=== PATIENT | male | born 1955 | race Caucasian/White ===

== ENCOUNTER → 2017-12-13 | Outpatient (CLI) | payer OTHER ==
[~2017-12-13] MED LIST: ACET120S PO; ACET325 PO; ALBU90OI6 INH; AMOCLA875 PO; ASPI81CH; ASPI81EC PO; AZIT250 PO; AZIT500 PO; Ativan1 MG PO; CEFD300 PO; CEFP200 PO; CEPH500 PO; CIPR500 PO; CRANBERRY PLUS1 EAC1 PO; Cipro500 MG PO; DOCU100 PO; DOXYCYCLINE CALCIUM; DULOXETINE; FLUC150A PO; FURO40 PO; HYDR1TAB94 PO; K-Dur20 MEQ; K-TAB ER20 MEQ PO; KETO15TC TP; LAVAP17G PO; LORA1; LORA1 PO; LOVA20 PO; LOVA40 PO; NITR100 PO; NYST100P TOP; POLY17UD PO; POTA10T PO; POTA8; POTCHL10ER PO; PREG50 PO; QUET100 PO; QUET25 PO; QUETIAPINE 25 MG; Rocephin 10001000 MG IM; SENNA PLUS; SERT100 PO; SERT25 PO; SERT50 PO; Seroquel50 MG PO; Tazicef1 G1 IM; WARF3 PO; WARF4 PO; [UNRECOGNIZED DRUG - OTHER]
[2017-12-13 18:15] LABS: Source, Urine Catheter
[2017-12-13 18:27] LABS: Appearance, Urine Cloudy (Clear); Bilirubin, Urine Neg (Neg); Blood, Urine 5+ (Neg); Color, Urine Yellow (P-Yellow); Glucose Qualitative, Urine Neg (Neg); Ketones, Urine Neg (Neg); Leukocyte Esterase, Urine 3+ (Neg); Nitrite, Urine Neg (Neg); Protein, Urine 2+ (Neg); Urobilinogen, Urine 3+ (Normal); pH, Urine 6.5 (5.0-8.0)
[2017-12-13 19:04] LABS: Bacteria Many /hpf; Red Blood Cells, Urine 25-50 /hpf (0-2); Squamous Epithelial Cells Not Seen /hpf (Few); White Blood Cells, Urine TNTC /hpf (0-5)
== END | disposition home or self-care (01) ==
LOC: LAB HH 17:30
PROVIDERS: Family Medicine
DX: N39.0 Urinary tract infection, site not specified (principal)
CPT/HCPCS: 81001; 87077; 87086; 87186

== ENCOUNTER → 2018-02-21 | Outpatient (CLI) | END | disposition home or self-care (01) ==

== ENCOUNTER → 2018-04-10 | Outpatient (CLI) | payer OTHER ==
[2018-04-10 14:27] LABS: Creatinine, Blood 1.29 mg/dL (0.60-1.20); Glomerular Filtration Rate >60 (60-)
== END | disposition home or self-care (01) ==
LOC: LAB HH 13:00
PROVIDERS: Urology
DX: N13.1 Hydronephrosis with ureteral stricture, not elsewhere classified (principal)
CPT/HCPCS: 82565

== ENCOUNTER → 2018-10-16 | Outpatient (CLI) | payer OTHER ==
[2018-10-16 17:36] LABS: Appearance, Urine Turbid (Clear); Bilirubin, Urine Neg (Neg); Blood, Urine 5+ (Neg); Color, Urine Amber (P-Yellow); Glucose Qualitative, Urine Neg (Neg); Ketones, Urine Neg (Neg); Leukocyte Esterase, Urine 3+ (Neg); Nitrite, Urine Neg (Neg); Protein, Urine 3+ (Neg); Urobilinogen, Urine 2+ (Normal); pH, Urine 6.5 (5.0-8.0)
[2018-10-16 17:46] LABS: Bacteria Many /hpf; Red Blood Cells, Urine TNTC /hpf (0-2); Squamous Epithelial Cells Rare /hpf (Few); White Blood Cells, Urine TNTC /hpf (0-5)
== END | disposition home or self-care (01) ==
LOC: LAB HH 17:11
PROVIDERS: Family Medicine
DX: N31.9 Neuromuscular dysfunction of bladder, unspecified (principal)
CPT/HCPCS: 81001; 87077; 87086; 87186

== ENCOUNTER → 2019-01-15 | Outpatient (CLI) | payer OTHER | END | disposition home or self-care (01) | LOC: LAB SHORT 09:42 → LAB HH 09:50 | DX: L08.9 Local infection of the skin and subcutaneous tissue, unspecified (principal) | CPT/HCPCS: 87070; 87205 ==

== ENCOUNTER → 2019-01-16 | Outpatient (CLI) | payer OTHER ==
[2019-01-16 16:26] LABS: Source, Urine Catheter
[2019-01-16 16:33] LABS: Appearance, Urine Cloudy (Clear); Bilirubin, Urine Neg (Neg); Blood, Urine 4+ (Neg); Color, Urine Yellow (P-Yellow); Glucose Qualitative, Urine Neg (Neg); Ketones, Urine Neg (Neg); Leukocyte Esterase, Urine 3+ (Neg); Nitrite, Urine Pos (Neg); Protein, Urine 2+ (Neg); Urobilinogen, Urine NORM (Normal)
[2019-01-16 16:52] LABS: White Blood Cells, Urine TNTC /hpf (0-5)
[2019-01-16 16:54] LABS: Bacteria Mod /hpf; Squamous Epithelial Cells Rare /hpf (Few)
== END | disposition home or self-care (01) ==
LOC: LAB HH 16:24 → LAB 16:24 → LAB SHORT 16:24
PROVIDERS: Family Medicine
DX: N39.0 Urinary tract infection, site not specified (principal)
CPT/HCPCS: 81001

== ENCOUNTER → 2019-02-05 | Outpatient (CLI) | payer OTHER ==
[2019-02-06 11:54] LABS: Appearance, Urine Turbid (Clear); Bilirubin, Urine Neg (Neg); Blood, Urine 5+ (Neg); Color, Urine Yellow (P-Yellow); Glucose Qualitative, Urine Neg (Neg); Ketones, Urine Neg (Neg); Leukocyte Esterase, Urine 3+ (Neg); Nitrite, Urine Neg (Neg); Protein, Urine 3+ (Neg); Urobilinogen, Urine NORM (Normal); pH, Urine 6.5 (5.0-8.0)
[2019-02-06 11:55] LABS: Amorphous Light (0-Heavy); Bacteria Many /hpf; Squamous Epithelial Cells Not Seen /hpf (Few); White Blood Cells, Urine TNTC /hpf (0-5)
== END | disposition home or self-care (01) ==
LOC: LAB HH 18:00 → LAB SHORT 18:00
PROVIDERS: Family Medicine
DX: N31.9 Neuromuscular dysfunction of bladder, unspecified (principal)
CPT/HCPCS: 81001; 87077; 87086; 87186

== ENCOUNTER 2019-02-24 13:09 | Inpatient (IN) | payer OTHER ==
[~2019-02-24] VITALS: Ht 182.9 cm; Wt 113.4 kg
[2019-02-24 15:29] LABS: BASOPHILS ABSOLUTE AUTO 0.02 K/mm3 (0.00-0.23); BASOPHILS PERCENT AUTO 0 % (0-2); EOSINOPHILS ABSOLUTE AUTO 0.06 K/mm3 (0.00-0.68); EOSINOPHILS PERCENT AUTO 0 % (0-6); Hematocrit 44.2 % (37.0-53.0); Hemoglobin 13.6 g/dL (13.5-17.5); IMMATURE GRAN ABSOLUTE AUTO 0.11 K/mm3 (0.00-0.10); IMMATURE GRAN PERCENT AUTO 1 % (0-1); LYMPHOCYTES ABSOLUTE AUTO 0.96 K/mm3 (0.84-5.20); LYMPHOCYTES PERCENT AUTO 6 % (21-46); MONOCYTES ABSOLUTE AUTO 1.48 K/mm3 (0.16-1.47); MONOCYTES PERCENT AUTO 10 % (4-13); Mean Corpuscular HGB 27.5 pg (26.0-34.0); Mean Corpuscular HGB Conc 30.8 g/dL (31.5-36.5); Mean Corpuscular Volume 90 fL (80-100); Mean Platelet Volume 10.9 fL (9.1-12.4); NEUTROPHILS ABSOLUTE AUTO 13.03 K/mm3 (1.96-9.15); NEUTROPHILS PERCENT AUTO 83 % (41-73); Platelet Count 212 K/mm3 (150-400); RDW Coefficient Variation 16.6 % (11.7-14.2); RDW Standard Deviation 54.4 fL (35.1-46.3); Red Blood Cell Count 4.94 M/mm3 (4.30-5.90); White Blood Cell Count 15.66 K/mm3 (4.00-11.30)
[2019-02-24 15:39] LABS: Alanine Aminotransfer (ALT/SGP 40 U/L (12-78); Albumin, Blood 2.8 g/dL (3.4-5.0); Albumin/Globulin Ratio 0.5 (0.8-1.8); Alk Phos 159 U/L (50-136); Anion Gap 7 mmol/L (6-16); Aspartate Aminotrans (AST/SGOT 26 U/L (12-37); Bilirubin, Total 0.8 mg/dL (0.1-1.0); Blood Urea Nitrogen 19 mg/dL (8-24); Bun/Creatinine Ratio 15.3 (12.0-20.0); CO2, Blood 25 mmol/L (21-32); Calcium, Blood 8.4 mg/dL (8.5-10.1); Chloride, Blood 106 mmol/L (98-108); Creatinine, Blood 1.24 mg/dL (0.60-1.20); Globulin, Blood 5.5 g/dL (2.2-4.0); Glomerular Filtration Rate >60 (60-); Glucose, Blood 102 mg/dL (70-99); Potassium, Blood 3.9 mmol/L (3.5-5.5); Sodium, Blood 138 mmol/L (136-145); Total Protein, Blood 8.3 g/dL (6.4-8.2)
[2019-02-24] MEDS ORDERED: EPIPEN 2-P0.3 MG/0.3 IM (16:19)
[2019-02-24 16:22] LABS: Source, Urine Catheter
[2019-02-24 16:27] LABS: Bilirubin, Urine Neg (Neg); Blood, Urine 5+ (Neg); Glucose Qualitative, Urine Neg (Neg); Ketones, Urine Neg (Neg); Leukocyte Esterase, Urine 3+ (Neg); Nitrite, Urine Pos (Neg); Protein, Urine 3+ (Neg); Urobilinogen, Urine NORM (Normal); pH, Urine 6.5 (5.0-8.0)
[2019-02-24 16:34] LABS: Appearance, Urine Bloody (Clear); Color, Urine Red (P-Yellow)
[2019-02-24 16:35] LABS: Bacteria Many /hpf; Red Blood Cells, Urine TNTC /hpf (0-2); Squamous Epithelial Cells Not Seen /hpf (Few); White Blood Cells, Urine TNTC /hpf (0-5)
[2019-02-24] MEDS ORDERED: QUET25 PO (18:08)
[2019-02-24] MEDS ORDERED: LORA.5 PO (18:11)
[2019-02-24] MEDS ORDERED: ALBU2.5V5 NEB (18:12)
[2019-02-24] MEDS ORDERED: Nystatin15 GM TOP (18:13)
[2019-02-24] MEDS ORDERED: Milk Of Ma400 MG/5 M PO (18:13)
[2019-02-24] MEDS ORDERED: Anti-Diarrheal2 MG PO (18:15)
[2019-02-24] MEDS ORDERED: Cvs Heartburn1 EACH PO (18:15)
[2019-02-24] MEDS ORDERED: Triple Antibio1 EACH TOP (18:18)
[2019-02-25 04:50] LABS: Hematocrit 35.6 % (37.0-53.0); Mean Corpuscular HGB 27.2 pg (26.0-34.0); Mean Corpuscular HGB Conc 30.9 g/dL (31.5-36.5); Mean Corpuscular Volume 88 fL (80-100); Mean Platelet Volume 10.5 fL (9.1-12.4); Platelet Count 163 K/mm3 (150-400); RDW Coefficient Variation 16.5 % (11.7-14.2); RDW Standard Deviation 53.1 fL (35.1-46.3); Red Blood Cell Count 4.05 M/mm3 (4.30-5.90); White Blood Cell Count 9.21 K/mm3 (4.00-11.30)
[2019-02-25 05:06] LABS: Anion Gap 4 mmol/L (6-16); Blood Urea Nitrogen 18 mg/dL (8-24); Bun/Creatinine Ratio 15.7 (12.0-20.0); CO2, Blood 26 mmol/L (21-32); Calcium, Blood 7.8 mg/dL (8.5-10.1); Chloride, Blood 107 mmol/L (98-108); Creatinine, Blood 1.15 mg/dL (0.60-1.20); Glomerular Filtration Rate >60 (60-); Glucose, Blood 96 mg/dL (70-99); Potassium, Blood 3.9 mmol/L (3.5-5.5); Sodium, Blood 137 mmol/L (136-145)
--- NOTE | 2019-02-25 05:54 | NUR ---
SHIFT SUMMARY: PT ARRIVED AT END OF DAY SHIFT. HE WAS ALERT AND ORIENTED WITH FREQUENT SHORT PERIODS OF CONFUSION T/O THE NOC SHIFT. HX OF COPD, AND CHRONIC UTI'S. COMES IN FROM [facility] ASS[facility]. MOTHER AND BROTHER WERE IN FOR SHORT PERIOD OF TIME DURING THE BEGINING OF SHIFT AND PLAN TO ARRIVE IN THE [facility]. PT WAS HUNGRY AT BEGINNING OF SHIFT AND ATE SOME SNACKS PRIOR TO MEDICATIONS. DENIED ANY NAUSEA. ADMISSION ASSESSMENT WAS COMPLETED. LUNGS SOUNDS CLEAR T/O, WITH OCCATIONAL DRY COUGH. DENIED SOB. NO CARDIAC ISSUES TO NOTE. VS WNL T/O SHIFT AND NO PAIN. IV FLUIDS WERE STARTED AND INFUSED WELL T/O THE NIGHT INTO A 22G RIGHT HAND. WOUNDS ARE NOTED AND DOCUMENTED TO THE GREAT RIGHT TOE, FROM RUNNING INTO SOMETHING. WOUNDS IS SMALL MEASURES 0.25 X0.25, WOUND HAS HYPERGRANULATION TISSUE, EDGES PINK WITH BRUISING NOTED AROUND AND ON THE SECOND TOE. WOUNDS ALSO ON COCCYX SHALLOW PINK MEASURES AN ESTIMATE OF 1 X 0.5 X 0.1 SURROUNDING TISSUE IS RED BUT BLANCHABLE. DRESSING WAS APPLIED ON TOE ONLY COCCYX WOUND IS MORE ON THE RIGHT NEAR ANAL OPENING. SO BARRIER CREAM IS SUGGESTED. CATHETER PATIETN WITH CLOUDY MUCUS LIKE URINE, SEDIMENT. ENCOURAGED HIM TO DRINK FLUIDS, HE HAS A HISTORY OF POOR INTAKE. AFTER BEDTIME MEDS HE SLEPT WELL THROUGHOUT THE NIGHT, AND DID NOT WANT TO BE DISTURBED UNTIL THIS AM. WILL REPORT TO DAY SHIFT RN.
--- NOTE | 2019-02-25 17:35 | NUR ---
SUMMARY PT SITTING UP IN BED EATING DINNER, PT HAS HAD SEVERAL VISITORS IN TODAY, PT OCC REFUSED TO BE TURNED, SMITH DRAINING HAZY, CLOUDY URINE, PT ASKED SEVERAL TIMES WHEN HE COULD GO HOME, PT VERY FORGETFUL, TAKES PILLS WHOLE WITH WATER, OCC WITH TURNING HIS LEGS SHAKE AND TREMOR, PT REPORTS HE CANNOT CONTROL IT, PT DENIES ANY PAIN OR SOB, VSS, NO ACUTE CHANGES, WILL CONT TO MONITOR
[2019-02-25] MEDS ORDERED: ACET325 PO (22:17)
[2019-02-25] MEDS ORDERED: ALBU90OI61 INH (22:19)
[2019-02-25] MEDS ORDERED: ANTACID PO (22:21)
[2019-02-25] MEDS ORDERED: SIM PO (22:21)
[2019-02-25] MEDS ORDERED: BISA10S PR (22:22)
[2019-02-25] MEDS ORDERED: [UNRECOGNIZED DRUG - OTHER] PR (22:23)
[2019-02-25] MEDS ORDERED: BENZEDREX (22:25)
[2019-02-25] MEDS ORDERED: GAVILAX17 G1 PO (22:27)
[2019-02-25] MEDS ORDERED: ONDA4ODT MM (22:30)
[2019-02-26 04:57] LABS: BASOPHILS ABSOLUTE AUTO 0.01 K/mm3 (0.00-0.23); BASOPHILS PERCENT AUTO 0 % (0-2); EOSINOPHILS PERCENT AUTO 2 % (0-6); Hematocrit 35.6 % (37.0-53.0); Hemoglobin 10.7 g/dL (13.5-17.5); IMMATURE GRAN ABSOLUTE AUTO 0.02 K/mm3 (0.00-0.10); IMMATURE GRAN PERCENT AUTO 0 % (0-1); LYMPHOCYTES ABSOLUTE AUTO 0.88 K/mm3 (0.84-5.20); LYMPHOCYTES PERCENT AUTO 17 % (21-46); MONOCYTES ABSOLUTE AUTO 0.67 K/mm3 (0.16-1.47); MONOCYTES PERCENT AUTO 13 % (4-13); Mean Corpuscular HGB 26.6 pg (26.0-34.0); Mean Corpuscular HGB Conc 30.1 g/dL (31.5-36.5); Mean Corpuscular Volume 89 fL (80-100); Mean Platelet Volume 10.2 fL (9.1-12.4); NEUTROPHILS ABSOLUTE AUTO 3.54 K/mm3 (1.96-9.15); NEUTROPHILS PERCENT AUTO 68 % (41-73); Platelet Count 158 K/mm3 (150-400); RDW Coefficient Variation 16.4 % (11.7-14.2); RDW Standard Deviation 53.8 fL (35.1-46.3); Red Blood Cell Count 4.02 M/mm3 (4.30-5.90); White Blood Cell Count 5.22 K/mm3 (4.00-11.30)
[2019-02-26 05:23] LABS: Anion Gap 5 mmol/L (6-16); Blood Urea Nitrogen 17 mg/dL (8-24); Bun/Creatinine Ratio 14.7 (12.0-20.0); CO2, Blood 25 mmol/L (21-32); Calcium, Blood 8.5 mg/dL (8.5-10.1); Chloride, Blood 111 mmol/L (98-108); Creatinine, Blood 1.16 mg/dL (0.60-1.20); Glomerular Filtration Rate >60 (60-); Glucose, Blood 99 mg/dL (70-99); Potassium, Blood 4.1 mmol/L (3.5-5.5); Sodium, Blood 141 mmol/L (136-145)
--- NOTE | 2019-02-26 05:32 | NUR ---
SHIFT SUMMARY: RADHA WAS CONFUSED THROUGHOUT THE NIGHT, HAD TO CONTINUE TO ORIENT HIM TO PLACE AND SITUATION. HE GOT AGGITATED SEVERAL TIMES SCREAMING DOWN THE V[place]LEGAS AND AT PEOPLE IN THE OTHER ROOMS. ONCE REORIENTED HE DID BETTER BUT NEEDED IT WITH IN MINUTES. HE WAS COMPLAINING THAT HE WANTED TO SLEEP. HAD TO GIVE HIM ATIVAN TO HELP HIM CALM DOWN AFTER HE GOT AGGITATED. ONCE HE CALMED DOWN WATCHED SOME TV BUT AROUND THE MIDNIGHT TIME HUNG HIS ANTIBOTIC AND WITH IN 20 MINUTES HE STARTED TO YELL AGAIN AND COMPLAINING TO TURN IT OFF, CUSING AND YELLING, REFUSED TO TAKE ORAL BACTRIM, REFUSED TO HAVE HIS VITALS TAKEN WELL. WAS ABLE TO TALK HIM INTO THE ANTIBOTIC BUT THAT WAS IT. HE FELL BACK TO SLEEP AND CONTINUED T/O THE NIGHT. HE ALLOWED THE LAB AND TRAVELING INVENTORY ASSOCIATE TO TAKE VITALS THIS MORNING BUT THAT WAS ALL. HE IS RESTING RIGHT NOW AGAIN REFUSED TO HAVE REPOSITIONING, LIKES TO BE LEFT ALONE AT NIGHT. WILL ASK DAY SHIFT RN TO SEE ABOUT HIS NIGHT MEDS WHEN THEY COME ON SHIFT.
--- NOTE | 2019-02-26 18:26 | NUR ---
SUMMARY PT RESTING QUIETLY IN BED, WAKES EASILY, IS VERY IRRITABLE WHEN WOKEN UP, IS PLEASANT WHEN FULLY AWAKE, HAD FAMILY IN TO VISIT TODAY, DISCHARGE PLANNERS HAVE BEEN IN CONTACT WITH [facility] AND PLAN IS TO DC IN AM, WILL CONT TO MONITOR
--- NOTE | 2019-02-26 19:20 | NUR ---
SHIFT ASSESSEMENT: RADHA ASLEEP IN ROOM, DINNER TRAY STILL SITTING ON BEDSIDE TABLE HAS NOT BEEN TOUCH. IV INFUSING WELL INTO RIGHT HAND AT KVO. AWAKENED HIM BY CALLING HIS NAME. HE AWAKENED EASILY, ABLE TO ORIENT TO PLACE AND SELF. HE REALIZED HE SLEPT ALL DAY. HE WAS SEEMING BACK TO HIS NORM JOKING AND WILLING TO LAUGH. HE ASKED ABOUT LAST NIGHT AND HOW HE WAS A AGITATED WHEN WOKE UP. INFORMED HE THAT HE WAS BUT IT WAS OK. HE APPOLIGIZED FOR HIS BEHAVIOR. INFORMED HIM I WOULD HAVE TO WAKE HIM UP TONIGHT WELL AND HE SAID HE WOULD BE BETTER TONIGHT. HE ATE ALL OF HIS MEAL, AND TOOK HIS MEDS WELL. DRESSING TO HIS TOE WAS INTAKE BUT REMOVED TO ASSESS WOUND, NO CHANGES, CLEANSED AND PUT NEW DRESSING ON. ASSESSMENT BENIGN, URINE IS BECOMING CLEARER, AND YELLOW. BOTTOM WOUND NO CHANGE INFORMED HIM HE HAS TO CHANGED POSITION MORE OFTEN. WILL CONTINUE TO ENCOURAGE HIM. EDUCATED ON THE ANITOBICS AND MEDS THAT HE WILL BE GETTING TONIGHT AND HOW IMPROTANT THEY ARE FOR HIS MRSA INFECTION. HE VERBALIZED UNDERSTANDING.
[2019-02-27 05:05] LABS: BASOPHILS ABSOLUTE AUTO 0.01 K/mm3 (0.00-0.23); BASOPHILS PERCENT AUTO 0 % (0-2); EOSINOPHILS ABSOLUTE AUTO 0.18 K/mm3 (0.00-0.68); EOSINOPHILS PERCENT AUTO 3 % (0-6); Hematocrit 36.6 % (37.0-53.0); Hemoglobin 11.1 g/dL (13.5-17.5); IMMATURE GRAN ABSOLUTE AUTO 0.03 K/mm3 (0.00-0.10); IMMATURE GRAN PERCENT AUTO 1 % (0-1); LYMPHOCYTES ABSOLUTE AUTO 0.85 K/mm3 (0.84-5.20); LYMPHOCYTES PERCENT AUTO 15 % (21-46); MONOCYTES PERCENT AUTO 11 % (4-13); Mean Corpuscular HGB 26.9 pg (26.0-34.0); Mean Corpuscular HGB Conc 30.3 g/dL (31.5-36.5); Mean Corpuscular Volume 89 fL (80-100); Mean Platelet Volume 10.3 fL (9.1-12.4); NEUTROPHILS ABSOLUTE AUTO 3.98 K/mm3 (1.96-9.15); NEUTROPHILS PERCENT AUTO 71 % (41-73); Platelet Count 173 K/mm3 (150-400); RDW Coefficient Variation 16.1 % (11.7-14.2); Red Blood Cell Count 4.12 M/mm3 (4.30-5.90); White Blood Cell Count 5.65 K/mm3 (4.00-11.30)
[2019-02-27 05:30] LABS: Anion Gap 5 mmol/L (6-16); Blood Urea Nitrogen 16 mg/dL (8-24); Bun/Creatinine Ratio 13.8 (12.0-20.0); CO2, Blood 27 mmol/L (21-32); Calcium, Blood 8.3 mg/dL (8.5-10.1); Chloride, Blood 108 mmol/L (98-108); Creatinine, Blood 1.16 mg/dL (0.60-1.20); Glomerular Filtration Rate >60 (60-); Glucose, Blood 81 mg/dL (70-99); Potassium, Blood 4.2 mmol/L (3.5-5.5); Sodium, Blood 140 mmol/L (136-145)
--- NOTE | 2019-02-27 06:19 | NUR ---
SHIFT SUMMARY: RADHA DID WELL THROUGHOUT THE NIGHT. HE WAS MORE ALERT AND ORIENTED THEN PRIOR EVENING. HE REMAINED CALM AND COOPERTIVE EVEN WHEN WOKE UP IN THE MIDDLE OF THE NIGHT. TOOK HIS MEDS WITH NO PROBLEMS, DENIED ANY PAIN OR DISCOMFORT. SLEPT WELL THROUGHOUT THE NIGHT WITH NO ACUTE CHANGESE TO REPORT. WILL INFORM DAY SHIFT RN.
[2019-02-27] MEDS ORDERED: CVS DISPOSABLE399 ML PR (08:44)
[2019-02-27] MEDS ORDERED: Florastor250 MG PO (08:46)
[2019-02-27] MEDS ORDERED: Oyster Shell C500 MG PO (08:46)
[2019-02-27] MEDS ORDERED: Bactrim Ds Tab1 EACH PO (08:47)
[2019-02-27] MEDS ORDERED: AMOCLA500 PO (08:48)
--- NOTE | 2019-02-27 10:42 | NUR ---
patient discharged with [facility] facility member. Placed in electric w/c via lift. dressed in street clothes. IV removed. patient grateful for care.
== END 2019-02-27 10:40 | disposition home or self-care (01) | DRG 699 ==
LOC: ER 13:09 → MEDS 13:10 → ENPENDDIS 03-02 07:54
PROVIDERS: Emergency Medicine; Family Medicine; ADMIT Internal Medicine
DX: T83.511A Infection and inflammatory reaction due to indwelling urethral catheter, initial encounter (principal); G82.20 Paraplegia, unspecified; N31.9 Neuromuscular dysfunction of bladder, unspecified; E87.5 Hyperkalemia; Z96.0 Presence of urogenital implants; W11.XXXS Fall on and from ladder, sequela; J44.9 Chronic obstructive pulmonary disease, unspecified; Z87.891 Personal history of nicotine dependence; B95.62 Methicillin resistant Staphylococcus aureus infection as the cause of diseases classified elsewhere; E83.51 Hypocalcemia; D69.6 Thrombocytopenia, unspecified; E66.01 Morbid (severe) obesity due to excess calories; Z68.33 Body mass index [BMI] 33.0-33.9, adult
CPT/HCPCS: 36415; 51702; 80048; 80053; 81001; 85025; 85027; 87081; 87086; 93005; 93010; 96361; 96361-59; 96365-59; 96366; 96367; 96372; 96372-59; 96376; 99285-25; G0378; J0696; J1644; J3370; J7030; J7050; J7120

== ENCOUNTER 2019-03-13 10:20 | Observation (INO) | payer OTHER ==
[~2019-03-13] VITALS: Ht 182.9 cm; Wt 105.0 kg
[~2019-03-13 10:20] MED LIST changes: +ALBU2.5V5 NEB; +ALBU90OI61 INH; +AMOCLA500 PO; +ANTACID PO; +Anti-Diarrheal2 MG PO; +BENZEDREX; +BISA10S PR; +Bactrim Ds Tab1 EACH PO; +CVS DISPOSABLE399 ML PR; +Cvs Heartburn1 EACH PO; +EPIPEN 2-P0.3 MG/0.3 IM; +Florastor250 MG PO; +GAVILAX17 G1 PO; +LORA.5 PO; +Milk Of Ma400 MG/5 M PO; +Nystatin15 GM TOP; +ONDA4ODT MM; +Oyster Shell C500 MG PO; +SIM PO; +Triple Antibio1 EACH TOP; +[UNRECOGNIZED DRUG - OTHER] PR
[2019-03-13 10:42] LABS: BASOPHILS ABSOLUTE AUTO 0.03 K/mm3 (0.00-0.23); BASOPHILS PERCENT AUTO 0 % (0-2); EOSINOPHILS ABSOLUTE AUTO 0.21 K/mm3 (0.00-0.68); EOSINOPHILS PERCENT AUTO 2 % (0-6); Hematocrit 41.1 % (37.0-53.0); Hemoglobin 12.3 g/dL (13.5-17.5); IMMATURE GRAN ABSOLUTE AUTO 0.04 K/mm3 (0.00-0.10); IMMATURE GRAN PERCENT AUTO 0 % (0-1); LYMPHOCYTES PERCENT AUTO 16 % (21-46); MONOCYTES ABSOLUTE AUTO 0.95 K/mm3 (0.16-1.47); MONOCYTES PERCENT AUTO 10 % (4-13); Mean Corpuscular HGB 26.3 pg (26.0-34.0); Mean Corpuscular HGB Conc 29.9 g/dL (31.5-36.5); Mean Corpuscular Volume 88 fL (80-100); Mean Platelet Volume 9.9 fL (9.1-12.4); NEUTROPHILS ABSOLUTE AUTO 6.46 K/mm3 (1.96-9.15); NEUTROPHILS PERCENT AUTO 70 % (41-73); Platelet Count 230 K/mm3 (150-400); RDW Coefficient Variation 16.6 % (11.7-14.2); RDW Standard Deviation 52.9 fL (35.1-46.3); Red Blood Cell Count 4.68 M/mm3 (4.30-5.90); White Blood Cell Count 9.19 K/mm3 (4.00-11.30)
[2019-03-13 10:57] LABS: Alanine Aminotransfer (ALT/SGP 28 U/L (12-78); Albumin, Blood 2.8 g/dL (3.4-5.0); Albumin/Globulin Ratio 0.5 (0.8-1.8); Alk Phos 135 U/L (50-136); Anion Gap 4 mmol/L (6-16); Aspartate Aminotrans (AST/SGOT 18 U/L (12-37); Bilirubin, Total 0.5 mg/dL (0.1-1.0); Blood Urea Nitrogen 15 mg/dL (8-24); Bun/Creatinine Ratio 13.8 (12.0-20.0); CO2, Blood 29 mmol/L (21-32); Calcium, Blood 8.5 mg/dL (8.5-10.1); Chloride, Blood 108 mmol/L (98-108); Creatinine, Blood 1.09 mg/dL (0.60-1.20); Globulin, Blood 5.4 g/dL (2.2-4.0); Glomerular Filtration Rate >60 (60-); Glucose, Blood 83 mg/dL (70-99); Potassium, Blood 4.5 mmol/L (3.5-5.5); Sodium, Blood 141 mmol/L (136-145); Total Protein, Blood 8.2 g/dL (6.4-8.2); Troponin I <0.015 ng/mL (0.000-0.040)
--- NOTE | 2019-03-13 18:07 | NUR ---
PT HAS BEEN SETTLED INTO ROOM. AOX4 AND COOPERATIVE OF ALL CARE. PT IS A PARAPLEGIC AND IS RESTING IN BED. PT HAS CHRONIC SMITH AND THIS WAS REMOVED AND NEW SMITH PLACED TO COLLECT UA PER PROTOCOL. PT TOLERATED WELL. PT IS CALM NO DISTRESS NOTED. LUNG SOUNDS ARE WET AND COURSE AT THIS TIME WILL CONTINUE TO MONITOR.
[2019-03-13 19:07] LABS: Source, Urine Catheter
[2019-03-13 19:18] LABS: Appearance, Urine Hazy (Clear); Bilirubin, Urine Neg (Neg); Blood, Urine 4+ (Neg); Color, Urine Yellow (P-Yellow); Glucose Qualitative, Urine Neg (Neg); Ketones, Urine Neg (Neg); Leukocyte Esterase, Urine 3+ (Neg); Nitrite, Urine Neg (Neg); Protein, Urine 1+ (Neg); Urobilinogen, Urine NORM (Normal)
[2019-03-13 19:33] LABS: White Blood Cells, Urine TNTC /hpf (0-5)
[2019-03-13 19:34] LABS: Bacteria Many /hpf; Squamous Epithelial Cells Rare /hpf (Few)
--- NOTE | 2019-03-14 04:27 | NUR ---
SHIFT SUMMARY: PT RESTED COMFORTABLY ALL SHIFT. PT HAD BRIEF PERIODS OF CONFUSION LATE MORNING WHERE PATIENT HAD NO IDEA WHERE HE WAS OR WHAT DAY IT WAS. PT APPEARS TO HAVE SUNDOWNERS AT TIMES AND REQUIRED FREQUENT REDIRECTION AND REASSURNACE (YELLING OUT NON SENSICAL WORDS). PTS LUNG SOUNDS ARE COARSE THROUGHOUT WITH OCCASIONAL NON PRODUCTIVE COUGH NOTED. PT DID PULL OUT SL TO LEFT ANTECUBITAL THIS SHIFT WITH NEW SL RESTARTED LEFT HAND AND COVERED WITH COBAN DRESSING. PT DENIES PAIN OR NAUSEA. PTS BED ALARM APPLIED, BED LOW POSITION, CALL LIGHT AT SIDE.
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
[2019-03-14] MEDS ORDERED: ALBU3IS INH (11:55)
[2019-03-14] MEDS ORDERED: AIRDUO RESPICL1 EAC1 INH (11:57)
[2019-03-14] MEDS ORDERED: AZIT500 PO (11:58)
[2019-03-14] MEDS ORDERED: DELTASONE20 MG PO (12:00)
--- NOTE | 2019-03-14 15:00 | NUR ---
PT DISCHARGED HOME TO [facility]. ALL PACKET INFO REVIEWED WITH [facility] NURSE AND MEDICATION LIST FAXED TO THEM. MEDICATIONS FAXED TO [facility] IN [place]. NEBULIZER MACHINE ORDER FAXED TO [facility]. PT MOTHER NOTIFIED OF PT LEAVING TO RETURN HOME TO [facility]. PAPER CUTTER FROM [facility] ARRIVED AND PICKED UP PT VIA WHEELCHAIR AT 1500. PT'S BELONGINGS WERE TAKEN WITH HIM. NO DISTRESS NOTED.
== END 2019-03-14 15:00 | disposition home or self-care (01) ==
LOC: ER 10:20 → MEDS 10:21
PROVIDERS: Emergency Medicine; ADMIT Internal Medicine
DX: J44.1 Chronic obstructive pulmonary disease with (acute) exacerbation (principal); J96.01 Acute respiratory failure with hypoxia; N31.9 Neuromuscular dysfunction of bladder, unspecified; G82.20 Paraplegia, unspecified; E78.5 Hyperlipidemia, unspecified; F32.9 Major depressive disorder, single episode, unspecified; D64.9 Anemia, unspecified; Z87.891 Personal history of nicotine dependence; Z79.899 Other long term (current) drug therapy
CPT/HCPCS: 71046; 80053; 81001; 82947; 83880; 84484; 85025; 87077; 87081; 87086; 87186; 93005; 93010; 94640; 94760; 96365; 96366; 96372; 96375; 96376; 99285-25; G0378; J1650; J1940; J1956; J2930

== ENCOUNTER → 2019-05-06 | Outpatient (CLI) | payer OTHER ==
[~2019-05-06] MED LIST changes: +AIRDUO RESPICL1 EAC1 INH; +ALBU3IS INH; +ALBU90OI INH; +DELTASONE20 MG PO; +GAVILAX238 GM PO; +POTCHL20ER PO; +Phillips'400 MG/5 M PO
[2019-05-06 15:39] LABS: Source, Urine Catheter
[2019-05-06 15:56] LABS: Bilirubin, Urine Neg (Neg); Blood, Urine 4+ (Neg); Glucose Qualitative, Urine Neg (Neg); Ketones, Urine Neg (Neg); Leukocyte Esterase, Urine 3+ (Neg); Nitrite, Urine Pos (Neg); Protein, Urine 2+ (Neg); Urobilinogen, Urine NORM (Normal)
[2019-05-06 16:13] LABS: Appearance, Urine Cloudy (Clear); Color, Urine Yellow (P-Yellow)
[2019-05-06 16:16] LABS: Squamous Epithelial Cells Not Seen /hpf (Few); White Blood Cells, Urine TNTC /hpf (0-5)
[2019-05-06 16:17] LABS: Bacteria Many /hpf
== END | disposition home or self-care (01) ==
LOC: LAB HH 15:37
PROVIDERS: Family Medicine
DX: N39.0 Urinary tract infection, site not specified (principal)
CPT/HCPCS: 81001; 87077; 87086; 87186

== ENCOUNTER 2019-05-19 19:16 | Inpatient (IN) | payer OTHER ==
[~2019-05-19] VITALS: Ht 182.9 cm; Wt 104.7 kg
[~2019-05-19 19:16] MED LIST changes: -ALBU90OI INH; -GAVILAX238 GM PO; -POTCHL20ER PO; -Phillips'400 MG/5 M PO
[2019-05-19] MEDS ORDERED: Bactrim Ds Tab1 EACH PO (19:34)
[2019-05-19] MEDS ORDERED: LORA.5 PO (19:37)
[2019-05-19 19:39] LABS: Source, Urine Catheter
[2019-05-19 19:42] LABS: Appearance, Urine Cloudy (Clear); Bilirubin, Urine Neg (Neg); Blood, Urine 4+ (Neg); Color, Urine Yellow (P-Yellow); Glucose Qualitative, Urine Neg (Neg); Ketones, Urine Neg (Neg); Leukocyte Esterase, Urine 3+ (Neg); Nitrite, Urine Neg (Neg); Protein, Urine 2+ (Neg); Specific Gravity, Urine 1.005 (1.003-1.022); Urobilinogen, Urine 1+ (Normal)
[2019-05-19 19:48] LABS: Bacteria Many /hpf; Mucus Light ({null, 0-Heavy}); Squamous Epithelial Cells Rare /hpf (Few); White Blood Cells, Urine TNTC /hpf (0-5)
[2019-05-19 19:49] LABS: BASOPHILS ABSOLUTE AUTO 0.01 K/mm3 (0.00-0.23); BASOPHILS PERCENT AUTO 0 % (0-2); EOSINOPHILS ABSOLUTE AUTO 0.03 K/mm3 (0.00-0.68); EOSINOPHILS PERCENT AUTO 0 % (0-6); Hematocrit 38.5 % (37.0-53.0); Hemoglobin 11.8 g/dL (13.5-17.5); IMMATURE GRAN ABSOLUTE AUTO 0.11 K/mm3 (0.00-0.10); IMMATURE GRAN PERCENT AUTO 1 % (0-1); LYMPHOCYTES PERCENT AUTO 6 % (21-46); MONOCYTES ABSOLUTE AUTO 1.06 K/mm3 (0.16-1.47); MONOCYTES PERCENT AUTO 9 % (4-13); Mean Corpuscular HGB 25.1 pg (26.0-34.0); Mean Corpuscular HGB Conc 30.6 g/dL (31.5-36.5); Mean Corpuscular Volume 82 fL (80-100); Mean Platelet Volume 10.8 fL (9.1-12.4); NEUTROPHILS ABSOLUTE AUTO 10.07 K/mm3 (1.96-9.15); NEUTROPHILS PERCENT AUTO 84 % (41-73); Platelet Count 185 K/mm3 (150-400); RDW Coefficient Variation 16.9 % (11.7-14.2); RDW Standard Deviation 50.3 fL (35.1-46.3); White Blood Cell Count 11.98 K/mm3 (4.00-11.30)
[2019-05-19 20:12] LABS: Albumin, Blood 2.6 g/dL (3.4-5.0); Albumin/Globulin Ratio 0.5 (0.8-1.8); Bilirubin, Total 0.7 mg/dL (0.1-1.0); Bun/Creatinine Ratio 14.2 (12.0-20.0); Calcium, Blood 8.5 mg/dL (8.5-10.1); Creatinine, Blood 1.55 mg/dL (0.60-1.20); Potassium, Blood 4.3 mmol/L (3.5-5.5); Total Protein, Blood 7.6 g/dL (6.4-8.2)
--- NOTE | 2019-05-20 00:20 | NUR ---
ARRIVAL PT ARRIVED TO UNIT VIA GURNERY FROM ED. PT SLIDE OVER BY PEER STAFF FROM GURNERY TO BED. ORIENTED PT TO ROOM, UNIT AND POLICIES. ADMISSION PROCESS COMPLETED. ASSESSMENT COMPLETED. PT VITAL SIGNS STABLE. PT IS A PARAPLEGIC AND REPORTS NO SENSATION FROM ABOUT MID ABDOMEN AND DOWN. RIGHT PEDAL PULSE IS WEAK. RIGHT FOOT HAS +2 EDEMA. LEFT FOOT HAS STRONG PULSE WITH TRACE AMOUNT OF SWELLING. PT DENIES ANY PAIN. BED IN LOW POSITION, CALL LIGHT IN REACH AND PT DENIES ANY NEEDS. WILL CONTINUE TO MONITOR.
[2019-05-20 04:05] LABS: BASOPHILS ABSOLUTE AUTO 0.02 K/mm3 (0.00-0.23); BASOPHILS PERCENT AUTO 0 % (0-2); EOSINOPHILS ABSOLUTE AUTO 0.03 K/mm3 (0.00-0.68); EOSINOPHILS PERCENT AUTO 0 % (0-6); Hematocrit 36.6 % (37.0-53.0); Hemoglobin 11.1 g/dL (13.5-17.5); IMMATURE GRAN ABSOLUTE AUTO 0.08 K/mm3 (0.00-0.10); IMMATURE GRAN PERCENT AUTO 1 % (0-1); LYMPHOCYTES ABSOLUTE AUTO 0.92 K/mm3 (0.84-5.20); LYMPHOCYTES PERCENT AUTO 8 % (21-46); MONOCYTES ABSOLUTE AUTO 1.17 K/mm3 (0.16-1.47); MONOCYTES PERCENT AUTO 10 % (4-13); Mean Corpuscular HGB 25.6 pg (26.0-34.0); Mean Corpuscular HGB Conc 30.3 g/dL (31.5-36.5); Mean Platelet Volume 10.5 fL (9.1-12.4); NEUTROPHILS ABSOLUTE AUTO 9.16 K/mm3 (1.96-9.15); NEUTROPHILS PERCENT AUTO 80 % (41-73); Platelet Count 163 K/mm3 (150-400); RDW Coefficient Variation 17.1 % (11.7-14.2); Red Blood Cell Count 4.33 M/mm3 (4.30-5.90); White Blood Cell Count 11.38 K/mm3 (4.00-11.30)
[2019-05-20 04:06] LABS: Mean Corpuscular Volume 85 fL (80-100)
[2019-05-20 04:25] LABS: Calcium, Blood 8.1 mg/dL (8.5-10.1); Creatinine, Blood 1.57 mg/dL (0.60-1.20)
--- NOTE | 2019-05-20 06:42 | NUR ---
SHIFT SUMMARY PT ASSESSMENT FINDINGS REMAIN UNCHANGED SINCE START OF SHIFT. PICTURE TAKEN OF PT ULCER ON LEFT SIDE OF COCCYX AND PLACED IN CHART, ALONG WITH CONCENT FOR THIS. PT HAD INCREASED AGGITATION AT TIMES. PT RUDE TO STAFF AND CUSSED AT STAFF. WENT IN TO REPOSITION PT AND PT WAS RUDE TO STAFF, CALLED STAFF BAD NAMES AND BEGAN TO SWING AT STAFF. LET PT KNOW HE NEEDED TO RESPECT STAFF AND THIS BEHAVIOR WAS NOT OKAY. LET PT KNOW HE NEEDED TO RESPECT STAFF WHILE HE WAS HERE. SHORTLY AFTER THIS. PT REQUESTED TO SPEAK TO MYSELF AND APPOLOGIZED FOR BEING RUDE. HE REPORTS HE HAS RESPECT FOR STAFF AND WILL TRY TO BE NICE. PT CURRENLTY IN BED. SMITH PLACE, INTACT AND DRAINING. ASSESSMENT FINDINGS REMAIN UNCHANGED AND VITAL SIGNS REMAIN STABLE. BED IN LOW POSITION, CALL LIGHT IN REACH AND PT DENIES ANY NEEDS AT THIS TIME. WILL CONTINUE TO MONITOR UNTIL HANDOFF TO DAYSHIFT RN.
--- NOTE | 2019-05-20 13:28 | NUR ---
PT REPORTING DIZZINESS AT REST, BP TRENDING DOWN, NOTIFIED DR GARCIA NEW ORDERS ENTERED. WILL CONTINUE TO MONITOR.
--- NOTE | 2019-05-20 19:53 | NUR ---
DISCHARGE SUMMARY PT A&Ox3, INTERMITTENT CONFUSION. FORGETFUL AT TIMES. PT PLEASANT AND COOPERATIVE WITH CARE FOR MAJORITY OF SHIFT. PT IMPULSIVE AT TIMES AND AGGITATES THIS EVENING. PT CALLS OUT INSTEAD OF USIGN CALL LIGHT, PT EDUCATED MULTIPLE TIMES. PT DENIES PAIN, SOB AND NASUEA T/O SHIFT. PT RECEIVEING IV FLUIDS AND IV ANTIBIOTICS. IV FLUIDS STOPPED THIS MORNING, BP TRENDING DOWN, NEW ORDERS FOR ADDITIONAL FLUIDS. SMITH IN PLACE, PATENT AND DRAINING. PRESSURE ULCER TO LEFT BUTTOCKS/GLUTEAL CLEF, WOUND CLEANED AND DRESSING CHANGES. Q2 REPOSITIONING, REFUSED FOR FOR A SHORT WHILE THIS AFTERNOON, EDUCATED OF THE NEED TO TURN TO REDUCE PRESSURE. VSS. NO OTHER ACUTE CHANGES NOTED DURING SHIFT. REPORT GIVEN TO ONCOMING RN.
--- NOTE | 2019-05-20 22:36 | NUR ---
ASSUMED CARE OF PATIENT AT APPROXIMATELY 1905 FROM MADI Hanks RN. PATIENT ALERT AND ORIENTED TO SELF. PATIENT CONFUSED AT TIMES. PATIENT SPILLED TWO DRINKS ON BEDSIDE TABLE WITHIN 30 MINUTES. PATIENT CALLS OUT AT TIMES. PATIENT REFUSES TO BE REPOSISTIONED AT TIMES. PATIENT DENIES PAIN, DIZZINESS AND NAUSEA; PARAPALEGIC. PATIENT HAS WOUND ON COCCYX. PIV INFUSING PER ORDER. NSR ON TELE; OXYGEN SATURATION ABOVE 90% ON ROOM AIR. PATIENT REPORTS HE IS GOING HOME TOMORROW. PATIENT HAS CHRONIC CATHETER; ATTENDS IN PLACE FOR INCONTINENCE. PATIENT CURRENTLY RESTING IN BED; CALL LIGHT IN REACH; BED IN LOWEST POSISTION. BED ALARM ON; WILL CONTINUE TO MONITOR AND ASSESS UNTIL END OF SHIFT.
--- NOTE | 2019-05-21 06:15 | NUR ---
PATIENT SLEPT ABOUT EIGHT HOURS LAST NIGHT. NO ACUTE CHANGES TO REPORT. WILL CONTINUE TO MONITOR AND ASSESS UNTIL END OF SHIFT.
--- NOTE | 2019-05-21 16:33 | NUR ---
SHIFT SUMAMRY SCROTAL SWELLING NOTED WITH BED BATH, NOTIFEID DR LACKEY OF CHANGE. NO OTHER CHANGES NOTED DURING SHIFT. PT A&Ox2-3, IMPULSIVE AND IRRITABLE AT TIMES. PT RESTING IN BED DURING SHIFT, STAFF ATTEMPTS Q2 TURN/REPOSITION, PT REFUSES AT TIMES. PT MOTHER REQUESTS SEVERAL TIME FOR A BED BATH, PT REFUSED FULL BED BATH, STAFF WAS ABLE TO COMPLETE PARTIAL BATH WITH PERICARE. PT DENIES SOB, PAIN AND N/V. PT RECEIVING IV ANTIBIOTIC. VSS. NO OTHER ACUTE CHANGES NOTED DURIN SHIFT. WILL CONTINUE TO MONITOR UNTIL REPORT GIVEN TO ONCOMING RN.
--- NOTE | 2019-05-21 17:54 | NUR ---
REPORT RECEIVED AT THIS TIME FROM MELVIN BOURNE RN.
--- NOTE | 2019-05-21 17:54 | NUR ---
REPORT CALLED TO ISAI HAGER ON MEDICAL, PT TRANSFERING TO ROOM 364. FAMILY NOTIFIED.
--- NOTE | 2019-05-21 18:19 | NUR ---
PT ARRIVED TO ROOM AT THIS TIME. NURSE ORIENTED PT TO ROOM AND MADE SURE PT IS COMFORTABLE
--- NOTE | 2019-05-22 04:15 | NUR ---
SHIFT SUMMARY PATIENT HAD NO ACUTE CHANGES OBSERVED THIS SHIFT. AXOX 2-3 WITH OUTBURST AT TIMES. BEDFAST. VSS/AFBERILE. DENIES PAIN, SOB, AND N/V. PIV REMAINS INTACT. SMITH PATENT AND DRAINING. CONTACT PRECAUTIONS. SLEPT MOST OF THE SHIFT. CALL LIGHT IN REACH. BED IN LOWEST POSITION. WILL CONTINUE TO MONITOR UNTIL DAY SHIFT NURSE ASSUMES CARE.
[2019-05-22 10:02] LABS: BASOPHILS ABSOLUTE AUTO 0.01 K/mm3 (0.00-0.23); BASOPHILS PERCENT AUTO 0 % (0-2); EOSINOPHILS ABSOLUTE AUTO 0.09 K/mm3 (0.00-0.68); EOSINOPHILS PERCENT AUTO 2 % (0-6); Hematocrit 34.2 % (37.0-53.0); Hemoglobin 10.3 g/dL (13.5-17.5); IMMATURE GRAN ABSOLUTE AUTO 0.03 K/mm3 (0.00-0.10); IMMATURE GRAN PERCENT AUTO 1 % (0-1); LYMPHOCYTES ABSOLUTE AUTO 0.66 K/mm3 (0.84-5.20); LYMPHOCYTES PERCENT AUTO 14 % (21-46); MONOCYTES PERCENT AUTO 8 % (4-13); Mean Corpuscular HGB 24.5 pg (26.0-34.0); Mean Corpuscular HGB Conc 30.1 g/dL (31.5-36.5); Mean Platelet Volume 10.4 fL (9.1-12.4); NEUTROPHILS PERCENT AUTO 76 % (41-73); Platelet Count 176 K/mm3 (150-400); RDW Coefficient Variation 16.9 % (11.7-14.2); RDW Standard Deviation 50.3 fL (35.1-46.3); White Blood Cell Count 4.89 K/mm3 (4.00-11.30)
[2019-05-22 10:03] LABS: Mean Corpuscular Volume 81 fL (80-100)
[2019-05-22 10:36] LABS: Tobramycin, Random 2.9 ug/mL
[2019-05-22 10:41] LABS: Anion Gap 5 mmol/L (6-16); Blood Urea Nitrogen 16 mg/dL (8-24); CO2, Blood 25 mmol/L (21-32); Calcium, Blood 8.3 mg/dL (8.5-10.1); Chloride, Blood 109 mmol/L (98-108); Creatinine, Blood 1.14 mg/dL (0.60-1.20); Glomerular Filtration Rate >60 (60-); Glucose, Blood 122 mg/dL (70-99); Potassium, Blood 3.9 mmol/L (3.5-5.5); Sodium, Blood 139 mmol/L (136-145)
--- NOTE | 2019-05-22 17:01 | NUR ---
SHIFT SUMMARY PT AXO TO SELF, PLACE, FAMILY AND FOLLOWING DIRECTIONS THOUGH FORGETFUL. PT IS VERY EAGER TO BE DISCHARGED HOME. PT NEEDING REMINDERS ABOUT THE IMPORTANCE OF COMPLETING TREATMENT. PT AGREES THEN FORGETS AND IS AGGITATED AGAIN. PT ESPECIALLY AGGITATED WHEN WEBSPHERE COMMERCE CONSULTANT IN ROOM. THIS NURSE CHANGED COCCYX DRESSING THIS MORNING. MODERATE AMOUNT OF FOUL YELLOW/BROWN DISCHARGE. PT REPOSITIONED Q2 AND CHANGED PRN. SMITH PATENT AND DRAINING CLEAR YELLOW URINE. PT ASKED ABOUT ISOLATION GOWNS AND THEN BECAME UPSET ABOUT THAT. PT REFUSED ATIVAN. PT'S MOTHER CALLED TO REMIND NURSE TO GIVE PT MEDS TO CALM HIM DOWN WHEN HE IS UPSET.
--- NOTE | 2019-05-22 22:06 | NUR ---
PATIENT AGITATED AND VERBALLY ABUSING RN AND REFUSING MEDICATION. PATIENT CALM DOWN AFTER THERAPEUTIC COMMUNICATION AND PATIENT ABLE TO TAKE HIS MEDICATION. PATIENT APOLOGIZED AFTER BEING VERBALLY ABUSIVE AND SAID HE WAS SORRY.
--- NOTE | 2019-05-23 03:38 | NUR ---
SHIFT SUMMARY PATIENT HAD NO ACUTE CHANGES OBSERVED THIS SHIFT. AXO TO SELF. BEDFAST. SMITH PATENT AND DRAINING. PATIENT ANGRY AND AGITATED T/O SHIFT. PO ATIVAN GIVEN PER EMAR. PATIENT INITIALLY REFUSED MEDICATIONS. THERAPEUTIC COMMUNICATION AND STAYING IN ROOM UNTIL PATIENT FINISHED COMPLAINING HAD POSITIVE RESULTS. PATIENT THAN TOOK MEDS AND APOLOGIZED FOR BEING VERBALLY ABUSIVE. PIV REMAINS INTACT. IV ABXS INFUSED. VSS/AFEBRILE. DENIES PAIN, SOB, AND N/V. CONTACT PRECAUTIONS. CALL LIGHT IN REACH. BED IN LOWEST POSITION. WILL CONTINUE TO MONITOR UNTIL DAY SHIFT NURSE ASSUMES CARE.
[2019-05-23 04:50] LABS: BASOPHILS ABSOLUTE AUTO 0.01 K/mm3 (0.00-0.23); BASOPHILS PERCENT AUTO 0 % (0-2); EOSINOPHILS PERCENT AUTO 2 % (0-6); Hematocrit 33.2 % (37.0-53.0); Hemoglobin 10.2 g/dL (13.5-17.5); IMMATURE GRAN ABSOLUTE AUTO 0.03 K/mm3 (0.00-0.10); IMMATURE GRAN PERCENT AUTO 1 % (0-1); LYMPHOCYTES ABSOLUTE AUTO 0.72 K/mm3 (0.84-5.20); LYMPHOCYTES PERCENT AUTO 14 % (21-46); MONOCYTES ABSOLUTE AUTO 0.72 K/mm3 (0.16-1.47); MONOCYTES PERCENT AUTO 14 % (4-13); Mean Corpuscular HGB 24.8 pg (26.0-34.0); Mean Corpuscular HGB Conc 30.7 g/dL (31.5-36.5); Mean Corpuscular Volume 81 fL (80-100); Mean Platelet Volume 10.5 fL (9.1-12.4); NEUTROPHILS ABSOLUTE AUTO 3.48 K/mm3 (1.96-9.15); NEUTROPHILS PERCENT AUTO 69 % (41-73); Platelet Count 189 K/mm3 (150-400); RDW Coefficient Variation 16.7 % (11.7-14.2); RDW Standard Deviation 49.1 fL (35.1-46.3); Red Blood Cell Count 4.12 M/mm3 (4.30-5.90); White Blood Cell Count 5.06 K/mm3 (4.00-11.30)
[2019-05-23 05:07] LABS: Alanine Aminotransfer (ALT/SGP 101 U/L (12-78); Albumin, Blood 2.2 g/dL (3.4-5.0); Albumin/Globulin Ratio 0.4 (0.8-1.8); Alk Phos 114 U/L (50-136); Anion Gap 8 mmol/L (6-16); Aspartate Aminotrans (AST/SGOT 96 U/L (12-37); Bilirubin, Total 0.5 mg/dL (0.1-1.0); Blood Urea Nitrogen 16 mg/dL (8-24); Bun/Creatinine Ratio 16.3 (12.0-20.0); CO2, Blood 26 mmol/L (21-32); Calcium, Blood 8.4 mg/dL (8.5-10.1); Chloride, Blood 107 mmol/L (98-108); Creatinine, Blood 0.98 mg/dL (0.60-1.20); Globulin, Blood 4.9 g/dL (2.2-4.0); Glomerular Filtration Rate >60 (60-); Glucose, Blood 99 mg/dL (70-99); Potassium, Blood 3.8 mmol/L (3.5-5.5); Sodium, Blood 141 mmol/L (136-145); Total Protein, Blood 7.1 g/dL (6.4-8.2)
[2019-05-23 05:10] LABS: Percent Saturation 12.5 % (20.0-50.0)
--- NOTE | 2019-05-23 07:15 | NUR ---
PT PLEASANT THIS AM. A/O. DENES PAIN. STATES NO FEELING OR MOVEMENT FROM WAIST DOWN. LEGS EDEMA +3 ONN PILLOWS. H/R REG, NO MURMER NOTED. NO TELE. LUNGS CLEAR, RESP EASY UNLABORED. ON R.A. BT X4 LSAT BM 3 DAYS. SMITH CATH DRAINING YELLOW FLUID. PLACED PILLOWS UNDER BOTH SIDES. TO TAKE PRESSURE OFF COCCYX WOUND. COVERED WITH MEPILEX. BED IN LOW POSITION, CALL LITE IN REACH, CALLS APROP
--- NOTE | 2019-05-23 12:16 | NUR ---
CLEAN, DRY, REPOSITIONED
--- NOTE | 2019-05-23 14:14 | NUR ---
MOVED PILLOW TO RT SIDE, REMOVED FROM LEFT. PT WATCHING TV AT THIS TIME. BED IN LOW POSITION, CALL LITE IN REACH, CCALLS APPPROP
--- NOTE | 2019-05-23 18:47 | NUR ---
PT PLEASANT TODAY. DID HAVE ONE FRUSTRATION OUTBURST TODAY. RECOVERED, AND APOLOGIZED. AWARE NEEDS 2-3 DAYS ABX. THEN HOPEFUL D/C . NO OTHER CONCERNS, BED IN LOW POSITION, CALL LITE IN REACH, CALLS APPROP
--- NOTE | 2019-05-24 06:57 | NUR ---
PT had 1 outburstthis shift when apprached for IV antibiotics. Ativn given oral with helpful effect. PTs elderly Mother cares for him, sw referral for adequate support will be made.
[2019-05-24 13:05] LABS: Tobramycin, Trough 0.8 ug/mL (0.0-1.9)
--- NOTE | 2019-05-24 17:46 | NUR ---
SHIFT SUMMARY NO ACUTE CHANGES. PATIENT DENIES PAIN, NAUSEA, AND SHORTNESS OF BREATH. PATIENT MOOD VERY LABILE. PATIENT REFUSED FULL ASSESSMENT AND HAS REFUSED REPOSITION. PATIENT BECOMES ANGRY EASILY DURING CARE AND WILL STATE THAT STAFF NEEDS TO LEAVE AND STOP BOTHERING HIM. PATIENT GIVEN ATIVAN X1 FOR AGITATION. PATIENT'S MOTHER WAS AT BEDSIDE THIS MORNING. DISCHARGE PLANNED FOR TOMORROW.
--- NOTE | 2019-05-25 05:02 | NUR ---
SHIFT SUMMARY PT HAS RESTED MOST OF THE NIGHT. MOOD IS LABILE. PT IS AT TIMES ANGRY AND DEFENSIVE AND AT OTHER TIMES PT IS PLESANT WITH STAFF. AT THE BEGINNING OF SHIFT PT WAS ANGRY AND DEFENSIVE AND RAISED HIS FIST SEVERAL TIMES DURING MY ASSESSMENT. PT HAS SINCE BEEN PLESANT AND THERE HAVE BEEN NO OTHER EPISODES OF AGGRESSION. PT REQUESTED ONCE TO BE REPOSITIONED. BUT REFUSES WHEN ASKED. VITALS STABLE. SMITH IN PLACE PATENT AND DRAINING. IV ABX INFUSED ORDERED. PT DENIES PAIN. PLAN IS FOR [facility] TODAY. NO ACUTE CHANGES TO REPORT. WILL CONTINUE TO MONITOR AND REPORT TO ONCOMING RN.
--- NOTE | 2019-05-25 16:18 | NUR ---
SHIFT SUMMARY NO ACUTE CHANGES. PATIENT HAS DISCHARGE ORDER BUT [facility] WILL NOT TAKE PATIENT BACK UNTIL SUNDAY WHEN THEIR NURSE HAS RETURNED TO WORK. PATIENT AND PATIENT'S MOTHER ARE VERY UPSET ABOUT THIS. PATIENT'S MOTHER CALLED TO INFORM THIS RN THAT SHE WAS UNHAPPY PATIENT HAD BEEN TOLD HE WAS ELIGIBLE FOR DISCAHRGE AND THAT SHE WAS ALSO UNHAPPY THAT THE HOSPITALIST HAD CALLED HER TO ASK IF SHE COULD TAKE THE PATIENT HOME. PATIENT DENIES PAIN, NAUSEA, AND SHORTNESS OF BREATH. PATIENT REFUSED TO PARTICIPATE IN FULL SHIFT ASSESSMENT, RAISING HIS FIST AT RN AND STATING IT WAS "BULLST." MEDICATED X1 WITH ATIVAN FOR AGITATION. CALL LIGHT IN REACH.
--- NOTE | 2019-05-26 04:40 | NUR ---
SHIFT SUMMARY PT MOOD IS LABILE, HE WAS ANGRY AND DEFENSIVE AT THAT START OF THE SHIFT AND WOULD NOT ALLOW ME TO PERFORM MOST OF MY ASSESSMENT. HOWEVER BEFORE LEAVING THE ROOM PT APOLOGIZED FOR BEING VERBALLY ABUSIVE. PT SINCE THAT TIME HAS BEEN PLESANT AND COOPERATIVE CARE. REPOSITONED WHENEVER PT ALLOWS. HE REFUSES ALMOST EVERYTIME HE IS ASKED. PT HAD A LARGE BM THIS SHIFT. NEIDA AND CATHETER CARE PERFORMED. MEPILEX ON GLUTEAL WOUND WAS SATURATED. CLEANED WOUND AND REPLACED WITH NEW MEPILEX. IV ABX INFUSED PER ORDERS. VITALS STABLE. PLAN AT THIS POINT IS [facility] SUNDAY. NO ACUTE CHANGES. WILL CONTINUE TO MONITOR AND REPORT TO ONCOMING RN.
--- NOTE | 2019-05-26 15:48 | NUR ---
THIS RN AND LOSS PREVENTION AUDITOR HAVE BEEN WORKING ON PT DISCHARGE TODAY, PT PAPER TENZIN. JUST SPOKE WITH PT, PT TALKED WITH HIS SISTER WHO WILL BE HIS RIDE HOME AND PT IS REQUESTING TO STAY ONE MORE NIGHT AND BE DISCHARGED IN THE MORNING. DR. NICHOLSON NOTIFIED OF THIS AT 1550. PLAN IS TO DISCHARGE IN AM. SPOKE WITH SIN PHARMACIST, PHARMACY IS IN NEED OF PT ADDRESS, PT IS UNSURE OF HOME ADDRESS AT THIS TIME. WILL ATTEMPT TO CONTACT PT SISTER TO LEARN PT ADDRESS.
--- NOTE | 2019-05-26 17:09 | NUR ---
SUMMARY: NO CHANGE IN PT STATUS TODAY. A/O, VSS.PT CONTINUES TO REFUSE REPOSITIONING AND CHANGING, ABLE TO CONVINCE CHANGING X1, PT HAD BM. THIS RN ABLE TO COMPLETE HEAD TO TOE. PT HAS DENIED PAIN/NAUSEA. ANTIBIOTIC INFUSED. PLAN IS TO DISCHRAGE TO [facility] TOMORROW. PT FAMILY AWARE. WILL CTM AND REPORT TO NOC RN
--- NOTE | 2019-05-27 02:50 | NUR ---
assumed care of PT after report from Alxeis ALEX. Have cared for PT in past.
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
--- NOTE | 2019-05-27 08:34 | NUR ---
PER NO IV ASSESS NEEDED
--- NOTE | 2019-05-27 12:25 | NUR ---
REPORT TO PAMELA AT [facility]. ANSWER ALL QUESTIONS. AWAITING RIDE
--- NOTE | 2019-05-27 12:26 | NUR ---
PRESSURE ULCER LEFT BUTTOCK CLEANED THIS AM AND MEPILEX APPLIED. NO CHANGES FROM INITIAL PICTURE. NO INFECTION OBSERVED W/ SEEING WOUND.
--- NOTE | 2019-05-27 15:45 | NUR ---
patient in w/c via lift
== END 2019-05-27 15:44 | disposition home health service (06) | DRG 698 ==
LOC: ER 19:16 → PCU 22:58 → MEDS 05-21 18:37 → ENPENDDIS 05-25 08:44 → EDPENDDISTM 05-27 11:12 → EDPENDDISDT 05-27 11:12 → EDPENDDIS 05-27 11:12 → MEDS 05-27 15:44
PROVIDERS: Emergency Medicine; Internal Medicine; ADMIT Hospitalist
DX: T83.511A Infection and inflammatory reaction due to indwelling urethral catheter, initial encounter (principal); A41.81 Sepsis due to Enterococcus; R65.20 Severe sepsis without septic shock; N17.9 Acute kidney failure, unspecified; E87.1 Hypo-osmolality and hyponatremia; G82.20 Paraplegia, unspecified; N39.0 Urinary tract infection, site not specified; L89.329 Pressure ulcer of left buttock, unspecified stage; J44.9 Chronic obstructive pulmonary disease, unspecified; F32.9 Major depressive disorder, single episode, unspecified; N31.9 Neuromuscular dysfunction of bladder, unspecified; E78.5 Hyperlipidemia, unspecified; R74.0 Nonspecific elevation of levels of transaminase and lactic acid dehydrogenase [LDH]; D63.1 Anemia in chronic kidney disease; D69.6 Thrombocytopenia, unspecified; N18.9 Chronic kidney disease, unspecified; F41.9 Anxiety disorder, unspecified; Z87.440 Personal history of urinary (tract) infections; Z86.14 Personal history of Methicillin resistant Staphylococcus aureus infection; Z87.891 Personal history of nicotine dependence; Z79.899 Other long term (current) drug therapy
CPT/HCPCS: 36415; 51702; 71046; 80048; 80053; 80200; 81001; 82728; 83540; 83550; 83605; 85025; 87040; 87077; 87086; 87186; 94760; 96365-59; 99285-25; A9270; J0290; J1650; J2543; J3260; J7030; J7050

== ENCOUNTER 2019-06-03 00:09 | Day surgery (SDC) | payer OTHER ==
[2019-06-03] MEDS ORDERED: ALBU90OI INH (15:31)
[2019-06-03] MEDS ORDERED: GAVILAX238 GM PO (15:32)
[2019-06-03] MEDS ORDERED: FURO40 PO (15:32)
[2019-06-03] MEDS ORDERED: LORA.5 PO (15:32)
[2019-06-03] MEDS ORDERED: POTCHL20ER PO (15:33)
[2019-06-03] MEDS ORDERED: QUET100 PO (15:34)
[2019-06-03] MEDS ORDERED: Seroquel50 MG PO (15:34)
[2019-06-03] MEDS ORDERED: ACET325 PO (15:35)
[2019-06-03] MEDS ORDERED: SERT25 PO (15:35)
[2019-06-03] MEDS ORDERED: LORA1 PO (15:36)
[2019-06-03] MEDS ORDERED: Phillips'400 MG/5 M PO (15:37)
== END 2019-06-03 22:39 | disposition home or self-care (01) ==
LOC: WOUND 00:09
DX: L89.324 Pressure ulcer of left buttock, stage 4 (principal); Z87.891 Personal history of nicotine dependence
CPT/HCPCS: 87071; 87075; 87205; G0463

== ENCOUNTER 2019-06-03 15:18 | Emergency (ER) | payer OTHER ==
[~2019-06-03] VITALS: Ht 182.9 cm; Wt 81.7 kg
[2019-06-03] MEDS ORDERED: ALBU90OI INH (15:31)
[2019-06-03] MEDS ORDERED: FURO40 PO (15:32)
[2019-06-03] MEDS ORDERED: GAVILAX238 GM PO (15:32)
[2019-06-03] MEDS ORDERED: LORA.5 PO (15:32)
[2019-06-03] MEDS ORDERED: POTCHL20ER PO (15:33)
[2019-06-03] MEDS ORDERED: Seroquel50 MG PO (15:34)
[2019-06-03] MEDS ORDERED: QUET100 PO (15:34)
[2019-06-03] MEDS ORDERED: SERT25 PO (15:35)
[2019-06-03] MEDS ORDERED: ACET325 PO (15:35)
[2019-06-03] MEDS ORDERED: LORA1 PO (15:36)
[2019-06-03] MEDS ORDERED: Phillips'400 MG/5 M PO (15:37)
== END 2019-06-03 17:10 | disposition home or self-care (01) ==
LOC: ER 15:18
DX: S00.31XA Abrasion of nose, initial encounter (principal); S20.319A Abrasion of unspecified front wall of thorax, initial encounter; S00.81XA Abrasion of other part of head, initial encounter; J44.9 Chronic obstructive pulmonary disease, unspecified; Z87.440 Personal history of urinary (tract) infections; F32.9 Major depressive disorder, single episode, unspecified; Z87.891 Personal history of nicotine dependence; Z79.899 Other long term (current) drug therapy; V00.811A Fall from moving wheelchair (powered), initial encounter
CPT/HCPCS: 70450; 99284-25

== ENCOUNTER 2019-06-10 00:39 | Day surgery (SDC) | payer OTHER ==
[~2019-06-10 00:39] MED LIST changes: +ALBU90OI INH; +GAVILAX238 GM PO; +POTCHL20ER PO; +Phillips'400 MG/5 M PO
== END 2019-06-10 22:49 | disposition home or self-care (01) ==
LOC: WOUND 00:39
DX: L89.324 Pressure ulcer of left buttock, stage 4 (principal)

== ENCOUNTER 2019-06-20 01:16 | Day surgery (SDC) | payer OTHER | END 2019-06-20 23:03 | disposition home or self-care (01) | LOC: WOUND 01:16 | DX: L89.324 Pressure ulcer of left buttock, stage 4 (principal); G82.20 Paraplegia, unspecified; J44.9 Chronic obstructive pulmonary disease, unspecified ==

== ENCOUNTER 2019-06-27 00:45 | Day surgery (SDC) | payer OTHER | END 2019-06-27 23:24 | disposition home or self-care (01) | LOC: WOUND 00:45 | DX: L89.324 Pressure ulcer of left buttock, stage 4 (principal); G82.20 Paraplegia, unspecified ==

== ENCOUNTER → 2019-07-02 | Outpatient (CLI) | payer OTHER ==
[2019-07-03 10:08] LABS: Bilirubin, Urine Neg (Neg); Blood, Urine 4+ (Neg); Glucose Qualitative, Urine Neg (Neg); Ketones, Urine Neg (Neg); Leukocyte Esterase, Urine 3+ (Neg); Nitrite, Urine Pos (Neg); Protein, Urine 1+ (Neg); Urobilinogen, Urine NORM (Normal); pH, Urine 6.5 (5.0-8.0)
[2019-07-03 10:16] LABS: Appearance, Urine Hazy (Clear); Color, Urine Yellow (P-Yellow)
[2019-07-03 10:18] LABS: Bacteria Many /hpf; Squamous Epithelial Cells Rare /hpf (Few); White Blood Cells, Urine 25-50 /hpf (0-5)
== END | disposition home or self-care (01) ==
LOC: LAB 14:55 → LAB SHORT 14:55
PROVIDERS: Family Medicine
DX: N39.0 Urinary tract infection, site not specified (principal)
CPT/HCPCS: 81001; 87086

== ENCOUNTER → 2019-07-09 | Outpatient (CLI) | payer OTHER ==
[2019-07-09 14:47] LABS: Source, Urine Catheter
[2019-07-09 15:05] LABS: Bilirubin, Urine Neg (Neg); Blood, Urine 3+ (Neg); Glucose Qualitative, Urine Neg (Neg); Ketones, Urine Neg (Neg); Leukocyte Esterase, Urine 3+ (Neg); Nitrite, Urine Pos (Neg); Protein, Urine 2+ (Neg); Urobilinogen, Urine NORM (Normal)
[2019-07-09 15:16] LABS: Appearance, Urine Cloudy (Clear); Color, Urine Yellow (P-Yellow)
[2019-07-09 15:17] LABS: Triple Phosphate Crystals Few /hpf; White Blood Cells, Urine TNTC /hpf (0-5)
[2019-07-09 15:18] LABS: Bacteria Many /hpf; Squamous Epithelial Cells Not Seen /hpf (Few)
== END | disposition home or self-care (01) ==
LOC: LAB 14:35 → LAB SHORT 14:35
PROVIDERS: Family Medicine
DX: N39.0 Urinary tract infection, site not specified (principal)
CPT/HCPCS: 81001; 87086

== ENCOUNTER 2019-07-11 08:59 | Day surgery (SDC) | payer OTHER | END 2019-07-11 23:49 | disposition home or self-care (01) | LOC: WOUND 08:59 | DX: L89.324 Pressure ulcer of left buttock, stage 4 (principal); G82.20 Paraplegia, unspecified; G62.9 Polyneuropathy, unspecified; N31.9 Neuromuscular dysfunction of bladder, unspecified; G81.91 Hemiplegia, unspecified affecting right dominant side; J44.9 Chronic obstructive pulmonary disease, unspecified; I73.9 Peripheral vascular disease, unspecified; Z99.3 Dependence on wheelchair; Z79.899 Other long term (current) drug therapy ==

== ENCOUNTER 2019-07-18 09:02 | Day surgery (SDC) | payer OTHER ==
[~2019-07-18 09:02] MED LIST changes: +GAVILAX17 GM PO; -GAVILAX238 GM PO
== END 2019-07-18 23:24 | disposition home or self-care (01) ==
LOC: WOUND 09:02
DX: L89.324 Pressure ulcer of left buttock, stage 4 (principal); G82.20 Paraplegia, unspecified

== ENCOUNTER 2019-07-22 15:22 | Inpatient (IN) | payer OTHER ==
[~2019-07-22] VITALS: Ht 167.6 cm; Wt 108.9 kg
[2019-07-22 16:49] LABS: BASOPHILS ABSOLUTE AUTO 0.02 K/mm3 (0.00-0.23); BASOPHILS PERCENT AUTO 0 % (0-2); EOSINOPHILS ABSOLUTE AUTO 0.04 K/mm3 (0.00-0.68); EOSINOPHILS PERCENT AUTO 0 % (0-6); Hematocrit 40.1 % (37.0-53.0); Hemoglobin 12.4 g/dL (13.5-17.5); IMMATURE GRAN ABSOLUTE AUTO 0.04 K/mm3 (0.00-0.10); IMMATURE GRAN PERCENT AUTO 0 % (0-1); LYMPHOCYTES ABSOLUTE AUTO 0.86 K/mm3 (0.84-5.20); LYMPHOCYTES PERCENT AUTO 8 % (21-46); MONOCYTES ABSOLUTE AUTO 1.07 K/mm3 (0.16-1.47); MONOCYTES PERCENT AUTO 10 % (4-13); Mean Corpuscular HGB 25.7 pg (26.0-34.0); Mean Corpuscular HGB Conc 30.9 g/dL (31.5-36.5); Mean Corpuscular Volume 83 fL (80-100); NEUTROPHILS ABSOLUTE AUTO 8.37 K/mm3 (1.96-9.15); NEUTROPHILS PERCENT AUTO 80 % (41-73); Platelet Count 163 K/mm3 (150-400); RDW Coefficient Variation 16.9 % (11.7-14.2); RDW Standard Deviation 51.3 fL (35.1-46.3); Red Blood Cell Count 4.82 M/mm3 (4.30-5.90)
[2019-07-22 17:07] LABS: Albumin, Blood 2.5 g/dL (3.4-5.0); Albumin/Globulin Ratio 0.5 (0.8-1.8); Bilirubin, Total 0.7 mg/dL (0.1-1.0); Bun/Creatinine Ratio 19.2 (12.0-20.0); Calcium, Blood 7.8 mg/dL (8.5-10.1); Creatinine, Blood 1.82 mg/dL (0.60-1.20); Potassium, Blood 3.9 mmol/L (3.5-5.5); Total Protein, Blood 7.5 g/dL (6.4-8.2)
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
--- NOTE | 2019-07-23 04:46 | NUR ---
Although pt intermittently cued to not pull at IV through shift, upon radiology transcriptionist entry to draw blood, noted IVF on floor. Further assessment IV on overbed table. Pt removed it.
--- NOTE | 2019-07-23 04:54 | NUR ---
Refused to allow another IV placed at this time.
[2019-07-23 05:04] LABS: Hematocrit 37.6 % (37.0-53.0); Hemoglobin 12.1 g/dL (13.5-17.5); Mean Corpuscular HGB 25.8 pg (26.0-34.0); Mean Corpuscular HGB Conc 32.2 g/dL (31.5-36.5); Mean Platelet Volume 10.5 fL (9.1-12.4); Platelet Count 168 K/mm3 (150-400); RDW Standard Deviation 49.1 fL (35.1-46.3); Red Blood Cell Count 4.69 M/mm3 (4.30-5.90); White Blood Cell Count 9.26 K/mm3 (4.00-11.30)
[2019-07-23 05:06] LABS: Mean Corpuscular Volume 80 fL (80-100)
[2019-07-23 05:21] LABS: Bun/Creatinine Ratio 18.4 (12.0-20.0); Calcium, Blood 8.1 mg/dL (8.5-10.1); Creatinine, Blood 1.74 mg/dL (0.60-1.20); Potassium, Blood 3.5 mmol/L (3.5-5.5)
[2019-07-23 07:30] LABS: Source, Urine Catheter
[2019-07-23 07:38] LABS: Bilirubin, Urine Neg (Neg); Blood, Urine 5+ (Neg); Glucose Qualitative, Urine Neg (Neg); Ketones, Urine 1+ (Neg); Leukocyte Esterase, Urine 3+ (Neg); Nitrite, Urine Pos (Neg); Protein, Urine 3+ (Neg); Urobilinogen, Urine 1+ (Normal)
[2019-07-23 07:45] LABS: Appearance, Urine Turbid (Clear); Color, Urine Yellow (P-Yellow)
[2019-07-23 07:46] LABS: White Blood Cells, Urine TNTC /hpf (0-5)
[2019-07-23 07:47] LABS: Red Blood Cells, Urine 50-100 /hpf (0-2); Squamous Epithelial Cells Rare /hpf (Few)
--- NOTE | 2019-07-23 07:47 | NUR ---
LUIS CHANGED THIS A.M. WITH URINE SAMPLE SENT. PATIENT TOLERATED WELL.CALLED FOR HOSPITAL WOUND VAC AND WILL CHANGE OUT WHEN ARRIVES.
[2019-07-23 07:48] LABS: Bacteria Mod /hpf
--- NOTE | 2019-07-23 09:39 | NUR ---
PATIENT UPSET. WANTS DIFFERENT ROOM. UPSET WITH "NOISE" FROM COMPUTER WHICH WAS OFF AND NOT MAKING ANY NOISE. IV INFUSING WITH A VERY LOW AMOUT OF NOISE COMING FROM IT. ADVISED NEEDS ANTIBIOTIC AND COULD NOT TURN IT OFF AT THIS TIME. STS WANTS TO SLEEP. SEEMS TO BE OK WITH EXPLANATION AND APPEARS TO NOT PULL ON IV. COBAN AROUND IV SITE ANF TUBING. WCTM.
[2019-07-23] MEDS ORDERED: ALBU90OI INH (10:50)
[2019-07-23] MEDS ORDERED: BISA10S PR (10:51)
[2019-07-23] MEDS ORDERED: BENZEDREX (10:53)
[2019-07-23] MEDS ORDERED: COMBIVENT RESPIM4 GM INH (10:55)
[2019-07-23] MEDS ORDERED: Loperamide2 MG PO (11:00)
[2019-07-23] MEDS ORDERED: LORA1 PO (11:03)
[2019-07-23] MEDS ORDERED: Milk Of Ma400 MG/5 M PO (11:04)
[2019-07-23] MEDS ORDERED: Pedi-Dri 100,0060 GM TOP (11:06)
[2019-07-23] MEDS ORDERED: ONDA4ODT MM (11:07)
[2019-07-23] MEDS ORDERED: PROTEIN POWDER480 GM PO ×2 (11:08→11:09)
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
--- NOTE | 2019-07-24 05:25 | NUR ---
REFUSED AM VITALS.
--- NOTE | 2019-07-24 05:31 | NUR ---
SHIFT SUMMARY PT HAS BEEN CONFUSED TONIGHT, REPORTS SEEING PEOPLE (STAFF) IN THE ROOM THAT ARE NOT ACTUALLY THERE. IS A&OX4, ANSWERS ORIENTATION QUESTIONS APPROP. SMITH CATH IN PLACE, DRAINING DARK URINE. Q2H TURNS COMPLETE. PT PULLED OUT IV TONIGHT, STATES BECAUSE HE WAS "TIRED OF IT". NEW IV PLACED PER SURGICAL DENTAL ASSISTANTISAI YANEZ VIA US. IV ABX ADMINISTERED PER ORDERS. DENIES ANY PAIN OR DISCOMFORT. PT HAS BEEN MOSTLY COOPERTIVE WITH STAFF, BESIDES REFUSING AM VITALS. WILL CONT TO MONITOR AND PROVIDE CARE UNTIL PRESUMED BY ONCOMING RN.
[2019-07-24 08:46] LABS: Bun/Creatinine Ratio 21.6 (12.0-20.0); Calcium, Blood 8.4 mg/dL (8.5-10.1); Creatinine, Blood 1.34 mg/dL (0.60-1.20); Potassium, Blood 3.5 mmol/L (3.5-5.5)
--- NOTE | 2019-07-24 16:36 | NUR ---
SHIFT SUMMARY: PT HAS BEEN ALERT TO SELF AND SITUATION AND HIS MOM AT BASELINE TODAY WITH NO C/O PAIN. HE HAS BEEN PLEASANT AND COOPERATIVE WITH CARE. NURSING CONTINUES WITH TURNING Q 2 HOURS AND PRESSURE IF OFF LOADED WITH PILLOWS. WOUND VAC IS IN PLACE TO LEFT BUTTOCK AND PER REPORT WAS CHANGED YESTERDAY. PT HAS BEEN MILDLY CONFUSED THIS AFTERNOON BUT WAS EASILY RE-DIRECTED. SMITH REMAINS IN PLACE AND PATENT. PLAN IS FOR PT TO DC HOME TO [facility] TOMORROW AND PT MOM WAS MADE AWARE. PT IS ABLE TO MAKE HIS NEEDS KNOWN AND IS RESTING IN BED WITH CALL LIGHT IN REACH.
--- NOTE | 2019-07-25 07:31 | NUR ---
SHIFT SUMMARY PT IRRITABLE AT TIMES. SAYS HE SEES SPIDERS SOMETIMES. CHANGED WOUND VAC DUE TO INCONT OF BM. ABLE TO SLEEP ON AND OFF T/O NIGHT. CALL LIGHT IN REACH.
[2019-07-25 08:51] LABS: Bun/Creatinine Ratio 19.6 (12.0-20.0); Calcium, Blood 8.5 mg/dL (8.5-10.1); Creatinine, Blood 1.38 mg/dL (0.60-1.20); Potassium, Blood 3.8 mmol/L (3.5-5.5)
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
--- NOTE | 2019-07-25 15:06 | NUR ---
PATIENT ALLOWED US TO REMOVE THE WOUND VAC AND PLACED A DRESSING. PICTURE TAKEN. PATIENT TO DISCHARE TO DISCHARGE BACK TO [facility] IN THE 1700 HOUR.
--- NOTE | 2019-07-25 15:28 | NUR ---
DISCHARGE SUMMARY PATIENT IS UNPLEASANT BUT WANTS TO GO HOME. WOUND VAC DRESSING REMOVED AND PATIENT HAS DRESSING IN PLACE OF WOUND VAC DRESSING. AWAITING DISCHARGE. TRANSPORT ARRANGED FOR 1700
--- NOTE | 2019-07-25 16:46 | NUR ---
PATIENT WAS DISCHARGED WITH [facility]SPORT BACK TO [facility]. PATIENT WAS PLEASANT.
== END 2019-07-25 16:43 | disposition home or self-care (01) | DRG 91 ==
LOC: ER 15:22 → MEDS 18:41 → ENPENDDIS 07-25 08:28 → MEDS 07-25 16:43
PROVIDERS: Emergency Medicine; Hospitalist; Nurse Practitioner Acute Care; ADMIT Internal Medicine
DX: G92 Toxic encephalopathy (principal); L89.324 Pressure ulcer of left buttock, stage 4; N17.9 Acute kidney failure, unspecified; N39.0 Urinary tract infection, site not specified; G82.20 Paraplegia, unspecified; D69.6 Thrombocytopenia, unspecified; E78.5 Hyperlipidemia, unspecified; E86.0 Dehydration; F32.9 Major depressive disorder, single episode, unspecified; J44.9 Chronic obstructive pulmonary disease, unspecified; K59.00 Constipation, unspecified; N31.9 Neuromuscular dysfunction of bladder, unspecified; F41.9 Anxiety disorder, unspecified; Z87.891 Personal history of nicotine dependence; R33.9 Retention of urine, unspecified; T43.95XA Adverse effect of unspecified psychotropic drug, initial encounter
CPT/HCPCS: 36415; 71045; 80048; 80053; 81001; 83605; 84145; 85025; 85027; 87040; 87077; 87086; 87186; 94640; 94760; 96365; 96367; 99285-25; A9270; J0696; J1650; J2185; J7030; J7050

== ENCOUNTER 2019-08-01 00:33 | Day surgery (SDC) | payer OTHER ==
[~2019-08-01 00:33] MED LIST changes: +COMBIVENT RESPIM4 GM INH; +Loperamide2 MG PO; +PROTEIN POWDER480 GM PO; +Pedi-Dri 100,0060 GM TOP
== END 2019-08-01 23:15 | disposition home or self-care (01) ==
LOC: WOUND 00:33
DX: L89.324 Pressure ulcer of left buttock, stage 4 (principal); G82.22 Paraplegia, incomplete

== ENCOUNTER 2019-08-15 08:58 | Day surgery (SDC) | payer OTHER ==
[2019-08-15] MEDS ORDERED: NITR100CA PO (18:38)
[2019-08-15] MEDS ORDERED: K-Dur 20 meq T20 MEQ PO (18:38)
== END 2019-08-15 22:53 | disposition home or self-care (01) ==
LOC: WOUND 08:58
DX: L89.324 Pressure ulcer of left buttock, stage 4 (principal); G82.20 Paraplegia, unspecified; G81.91 Hemiplegia, unspecified affecting right dominant side; N31.9 Neuromuscular dysfunction of bladder, unspecified; G62.9 Polyneuropathy, unspecified

== ENCOUNTER 2019-08-15 15:25 | Inpatient (IN) | payer OTHER ==
[~2019-08-15] VITALS: Ht 182.9 cm; Wt 104.3 kg
[2019-08-15 17:00] LABS: BASOPHILS ABSOLUTE AUTO 0.02 K/mm3 (0.00-0.23); BASOPHILS PERCENT AUTO 0 % (0-2); EOSINOPHILS ABSOLUTE AUTO 0.01 K/mm3 (0.00-0.68); EOSINOPHILS PERCENT AUTO 0 % (0-6); Hematocrit 44.2 % (37.0-53.0); Hemoglobin 12.9 g/dL (13.5-17.5); IMMATURE GRAN ABSOLUTE AUTO 0.11 K/mm3 (0.00-0.10); IMMATURE GRAN PERCENT AUTO 1 % (0-1); LYMPHOCYTES ABSOLUTE AUTO 0.82 K/mm3 (0.84-5.20); LYMPHOCYTES PERCENT AUTO 5 % (21-46); MONOCYTES ABSOLUTE AUTO 1.26 K/mm3 (0.16-1.47); MONOCYTES PERCENT AUTO 8 % (4-13); Mean Corpuscular HGB 25.5 pg (26.0-34.0); Mean Corpuscular HGB Conc 29.2 g/dL (31.5-36.5); Mean Corpuscular Volume 87 fL (80-100); Mean Platelet Volume 10.1 fL (9.1-12.4); NEUTROPHILS ABSOLUTE AUTO 14.19 K/mm3 (1.96-9.15); NEUTROPHILS PERCENT AUTO 86 % (41-73); Platelet Count 178 K/mm3 (150-400); RDW Coefficient Variation 16.7 % (11.7-14.2); RDW Standard Deviation 53.3 fL (35.1-46.3); Red Blood Cell Count 5.06 M/mm3 (4.30-5.90); White Blood Cell Count 16.41 K/mm3 (4.00-11.30)
[2019-08-15 17:35] LABS: Albumin, Blood 2.9 g/dL (3.4-5.0); Albumin/Globulin Ratio 0.5 (0.8-1.8); Bilirubin, Total 0.9 mg/dL (0.1-1.0); Bun/Creatinine Ratio 12.2 (12.0-20.0); Calcium, Blood 8.9 mg/dL (8.5-10.1); Creatinine, Blood 4.44 mg/dL (0.60-1.20); Globulin, Blood 5.6 g/dL (2.2-4.0); Total Protein, Blood 8.5 g/dL (6.4-8.2)
[2019-08-15] MEDS ORDERED: K-Dur 20 meq T20 MEQ PO (18:38)
[2019-08-15] MEDS ORDERED: NITR100CA PO (18:38)
[2019-08-15 20:20] LABS: Calcium, Ionized (POC) 0.97 mmol/L (1.10-1.46); Chloride (POC) 107 mmol/L (98-108); Creatinine (POC) 4.6 mg/dL (0.8-1.3); Glucose (ISTAT POC) 112 mg/dL (70-99); Hemoglobin (POC) 10.2 g/dL (13.5-17.5); Potassium (POC) 5.1 mmol/L (3.5-5.5); Sodium (POC) 136 mmol/L (135-148); Total CO2 (POC) 20 mmol/L (21-32)
--- NOTE | 2019-08-16 02:24 | NUR ---
LATE CHART NOTE: patient was bladder scanned per verbal order of hospitalist upon admission to the floor. > 600 ml urine detected at that time. catheter was re-seated, amd 450 ml immediate return of brown/gaston opaque urine drained into merlos bag. MD informed, orders for fluid bolus received and started
[2019-08-16 04:49] LABS: BASOPHILS ABSOLUTE AUTO 0.01 K/mm3 (0.00-0.23); BASOPHILS PERCENT AUTO 0 % (0-2); EOSINOPHILS ABSOLUTE AUTO 0.02 K/mm3 (0.00-0.68); EOSINOPHILS PERCENT AUTO 0 % (0-6); Hematocrit 34.3 % (37.0-53.0); Hemoglobin 10.4 g/dL (13.5-17.5); IMMATURE GRAN ABSOLUTE AUTO 0.08 K/mm3 (0.00-0.10); IMMATURE GRAN PERCENT AUTO 1 % (0-1); LYMPHOCYTES ABSOLUTE AUTO 0.72 K/mm3 (0.84-5.20); LYMPHOCYTES PERCENT AUTO 8 % (21-46); MONOCYTES PERCENT AUTO 9 % (4-13); Mean Corpuscular HGB 25.6 pg (26.0-34.0); Mean Corpuscular HGB Conc 30.3 g/dL (31.5-36.5); Mean Platelet Volume 10.6 fL (9.1-12.4); NEUTROPHILS ABSOLUTE AUTO 7.49 K/mm3 (1.96-9.15); NEUTROPHILS PERCENT AUTO 82 % (41-73); Platelet Count 134 K/mm3 (150-400); RDW Coefficient Variation 16.7 % (11.7-14.2); RDW Standard Deviation 51.8 fL (35.1-46.3); Red Blood Cell Count 4.07 M/mm3 (4.30-5.90); White Blood Cell Count 9.12 K/mm3 (4.00-11.30)
[2019-08-16 04:54] LABS: Mean Corpuscular Volume 84 fL (80-100)
[2019-08-16 05:04] LABS: Bun/Creatinine Ratio 12.7 (12.0-20.0); Calcium, Blood 7.8 mg/dL (8.5-10.1); Creatinine, Blood 4.16 mg/dL (0.60-1.20); Potassium, Blood 4.7 mmol/L (3.5-5.5)
--- NOTE | 2019-08-16 05:14 | NUR ---
PATIENT SLEPT MOST OF NIGHT AFTER ADMISSION. NO COMPLAINTS OF DISCOMFORT. WOUND VAC TO COCCYX WOUND APPEARS TO HAVE NEW CANISTER, AND DID NOT DRAIN ALL NIGHT. DRESSING DOES NOT APPEAR TO BE LEAKING. URINE IN SMITH CATHETER CLEARED NOTICEABLY SINCE ARRIVAL. URINE WENT FROM BROWN/HANCOCK OPAQUE TO YELLOW RUMA WITH A SMALL AMOUNT OF SEDIMENT. NOT CLOUDY. POTASSIUM DOWN 4.7 FROM 6 IN EMERGENCY ROOM.
[2019-08-16 10:56] LABS: Source, Urine Clean Catch
[2019-08-16 11:17] LABS: Appearance, Urine Hazy (Clear); Bilirubin, Urine Neg (Neg); Blood, Urine 5+ (Neg); Color, Urine Yellow (P-Yellow); Glucose Qualitative, Urine Neg (Neg); Ketones, Urine Neg (Neg); Leukocyte Esterase, Urine 3+ (Neg); Nitrite, Urine Neg (Neg); Protein, Urine 2+ (Neg); Specific Gravity, Urine 1.005 (1.003-1.022); Urobilinogen, Urine NORM (Normal)
[2019-08-16 11:37] LABS: White Blood Cells, Urine TNTC /hpf (0-5)
[2019-08-16 11:38] LABS: Bacteria Mod /hpf; Red Blood Cells, Urine TNTC /hpf (0-2); Squamous Epithelial Cells Not Seen /hpf (Few)
--- NOTE | 2019-08-16 16:01 | NUR ---
PT'S MOTHER IS CONCERNED ABOUT PLACEMENT FOR PT. HE IS CURRENTLY LIVING AT [facility] IN [place] AND IS NOT ABLE TO RETURN AFTER 08/28. CARE MANAGERS WILL NEED TO BE INVOLVED IN PLACEMENT.
[2019-08-16 16:56] LABS: Source, Urine Catheter
[2019-08-16 17:08] LABS: Bilirubin, Urine Neg (Neg); Blood, Urine 5+ (Neg); Glucose Qualitative, Urine Neg (Neg); Ketones, Urine Neg (Neg); Leukocyte Esterase, Urine 3+ (Neg); Nitrite, Urine Neg (Neg); Protein, Urine 2+ (Neg); Urobilinogen, Urine NORM (Normal)
[2019-08-16 17:30] LABS: Appearance, Urine Hazy (Clear); Color, Urine Yellow (P-Yellow)
[2019-08-16 17:32] LABS: Red Blood Cells, Urine TNTC /hpf (0-2); White Blood Cells, Urine TNTC /hpf (0-5)
[2019-08-16 17:33] LABS: Bacteria Mod /hpf; Squamous Epithelial Cells Not Seen /hpf (Few)
--- NOTE | 2019-08-16 17:54 | NUR ---
SHIFT SUMMARY PT AXO TO SELF THOUGH SLOW TO RESPOND AND FORGETFUL. EMOTIONALLY LABILE AND GROWING INCREASINGLY IRRITABLE THROUGHOUT THE DAY, MEDICATED PER EMAR. PT'S CHRONIC SMITH CHANGED THIS SHIFT X2. UA SENT EACH TIME. PATENT AND DRAINING AT THIS TIME. WOUND VAC ALSO CHANGED AND WOUNDS PHOTOGRAPHED AND CHARTED. SEE NOTE ABOUT PT'S MOTHER CONCERNED ABOUT DISCHARGE PLACEMENT. IV PATENT AND INFUSING AT THIS TIME PER EMAR. POSITIVE BLOOD CULTURES, DR GARCIA NOTIFIED, SEE LABS. BED IN LOW POSITION, CALL LIGHT WITHIN REACH.
--- NOTE | 2019-08-16 20:48 | NUR ---
SCD removal When I removed the pt's SCD's, there were blisters on the legs filled with SS fluid. nurse notified
--- NOTE | 2019-08-16 21:54 | NUR ---
lARGE CLEAR WATER BLISTER NOTED ON RIGHT MID PERDUE. WOUND INTACT WITHOUT DRAINAGE OR OPEN AREAS. LEFT LATERAL CALF CLEAR WATER BLISTERS ALSO NOTED. ALSO WITHOUT DRAINAGE OR OPEN AREAS. SCD'S LEFT OFF AFTER BEDBATH. AREAS OPEN TO AIR.
--- NOTE | 2019-08-17 03:15 | NUR ---
SPOKE WITH DR. LEVY REGARDING BLISTERS ON LOWER EXTREMITIES WHEN SCD'S REMOVED LAST NIGHT FOR A BATH. EXPLAINED SCD'S NOT REPLACED, AND THAT THE ONE OPEN BLISTER WAS CLEANSED WITH NORMAL SALINE AND COVERED WITH A NON STICK PAD AND WRAPPED WITH KERLIX. NO NEW ORDERS
[2019-08-17 04:37] LABS: BASOPHILS ABSOLUTE AUTO 0.01 K/mm3 (0.00-0.23); BASOPHILS PERCENT AUTO 0 % (0-2); EOSINOPHILS ABSOLUTE AUTO 0.06 K/mm3 (0.00-0.68); EOSINOPHILS PERCENT AUTO 1 % (0-6); Hematocrit 32.5 % (37.0-53.0); Hemoglobin 9.9 g/dL (13.5-17.5); IMMATURE GRAN ABSOLUTE AUTO 0.04 K/mm3 (0.00-0.10); IMMATURE GRAN PERCENT AUTO 1 % (0-1); LYMPHOCYTES ABSOLUTE AUTO 0.83 K/mm3 (0.84-5.20); LYMPHOCYTES PERCENT AUTO 13 % (21-46); MONOCYTES ABSOLUTE AUTO 0.89 K/mm3 (0.16-1.47); MONOCYTES PERCENT AUTO 14 % (4-13); Mean Corpuscular HGB 25.2 pg (26.0-34.0); Mean Corpuscular HGB Conc 30.5 g/dL (31.5-36.5); Mean Corpuscular Volume 83 fL (80-100); Mean Platelet Volume 10.5 fL (9.1-12.4); NEUTROPHILS ABSOLUTE AUTO 4.43 K/mm3 (1.96-9.15); NEUTROPHILS PERCENT AUTO 71 % (41-73); Platelet Count 130 K/mm3 (150-400); RDW Coefficient Variation 16.7 % (11.7-14.2); RDW Standard Deviation 50.9 fL (35.1-46.3); Red Blood Cell Count 3.93 M/mm3 (4.30-5.90); White Blood Cell Count 6.26 K/mm3 (4.00-11.30)
[2019-08-17 04:57] LABS: Bun/Creatinine Ratio 15.6 (12.0-20.0); Calcium, Blood 8.2 mg/dL (8.5-10.1); Creatinine, Blood 2.94 mg/dL (0.60-1.20); Potassium, Blood 4.2 mmol/L (3.5-5.5)
--- NOTE | 2019-08-17 05:08 | NUR ---
SLEPT UNEASILY MORNING HOURS. HALLUCINATING ABOUT ANIMALS IN ROOM MOSTLY CATS. UNCOOPERATIVE WITH STAFF WITH TASKS SUCH TAKING MEDS OR BREATHING TREATMENTS. CALMED RIGHT AWAY WITH REQUESTED SNACKS. ALWAYS APOLOGISING AFTER OUTBREAKS. NO CHANGE IN BLISTERS SINCE LAST NOTE. URINE STILL DRAINING WELL INTO SMITH CATHETER. NO OUTPUT IN WOUND VAC. EVEN THOUGH SEAL IS INTACT
[2019-08-17 14:18] LABS: Adenovirus Not Detected (NOT DETECT); Bordetella pertussis Not Detected (NOT DETECT); Chlamydophila pneumoniae Not Detected (NOT DETECT); Coronavirus 229E Not Detected (NOT DETECT); Coronavirus HKU1 Not Detected (NOT DETECT); Coronavirus NL63 Not Detected (NOT DETECT); Coronavirus OC43 Not Detected (NOT DETECT); Human Metapneumovirus Not Detected (NOT DETECT); Human Rhinovirus/Enterovirus Not Detected (NOT DETECT); Influenza A Not Detected (NOT DETECT); Influenza A/2009-H1 Not Detected (NOT DETECT); Influenza A/H1 Not Detected (NOT DETECT); Influenza A/H3 Not Detected (NOT DETECT); Influenza B Not Detected (NOT DETECT); Mycoplasma pneumoniae Not Detected (NOT DETECT); Parainfluenza Virus 1 Not Detected (NOT DETECT); Parainfluenza Virus 2 Not Detected (NOT DETECT); Parainfluenza Virus 3 Not Detected (NOT DETECT); Parainfluenza Virus 4 Not Detected (NOT DETECT); Respiratory Syncytial Virus Not Detected (NOT DETECT)
--- NOTE | 2019-08-17 17:07 | NUR ---
Shift Summary A/O to self and family. Patient has been pleasant, no behavior issues this shift. Hbg seems to have been trending down from 12.9 to 9.9 with no signs of physical bleeding. 1xBM smear, brown, soft; merlos intact and draining well. Wound Vac patent @ 120mmHg. TQ2 x 2 assist. Speech mostly comprehensible. No other concerns.
--- NOTE | 2019-08-18 16:19 | NUR ---
SHIFT SUMMARY ADMIT FOR ARF/UTI/SEPSIS. NS RUNNING @ 100 ML/HR TODAY. WOUND VAC DRESSING CHANGED TODAY. PT EXPERIENCES SHORT PERIODS OF AGITATION WERE HE CALLS OUT. I GAVE HIM ATIVAN THIS SHIFT. CAN BE CALMED AND REDIRECTED. CHRONIC SMITH. AWAITING PLACEMENT TO A SNF. PREVIOUS PLACEMENT WILL NOT TAKE HIM BACK. HEPARIN FOR DVT PREVENTION. ON CONTACT PRECAUTIONS FOR MRSA IN THE NARES. MAX ASSIST/NO WT BEARING. PARAPLEGIC. [address] ROOM AIR. I NOTED HYPOTENSION WAS RECORDED DURING LAST NIGHT'S SHIFT. HOSPITALIST WAS AWARE OF THIS. BP'S HAVE IMPROVED THIS SHIFT.
--- NOTE | 2019-08-18 19:50 | NUR ---
PATIENT TRANSFERRED TO THIS ROOM FROM [facility]. HE IS ALERT TO SELF AND PLACE. HAS PERIODS OF CONFUSION AND FORGETS TO USE THE CALL LIGHT. DENIES SOB OR CONGESTION, COUGH IS NON-PRODUCTIVE AND DRY. WOUND VAC AT 120MMGH TO COCCYX, CATHETER PATENT AND DRAINING CLEAR YELLOW URINE. IV INFUSING WITH NO PROBLEMS, CALL LIGHT GIVEN. ASSESSMENT COMPLETED SEE CHART.
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
--- NOTE | 2019-08-19 02:00 | NUR ---
RADHA AWAKE, CONTINUES TO HEAR THE SLIGHTEST NOISE WHETHER IN THE V[place], IN OTHER ROOMS, OR JUST THE HOSPITAL MAKING NOISE, LIKE THE TUBE SYSTEM. IT KEEPS HIM AWAKE AT NIGHT AND GETS HIM AGGITATED. STATES HE WANTS UP SO HE CAN LEAVE THIS PLACE. SPOKE TO HIM ABOUT THE NOISES, REORIENTED HIM BACK TO THE HOSPITAL SETTING. HE CALMS DOWN, AND SEEMS TO UNDERSTAND. TALKED ALITTLE ABOUT WHAT HE WANTS TO DO FOR HIS LIFE, STILL HAS HIGH HOPE ON LIVING ON HIS OWN AGAIN, AND PLAYING HIS GUITAR. WANTED A PEPSI, GAVE THAT TO HIM. IV STILL INFUSING WITH NO PROBLEMS. WILL CONTINUE TO MONITOR.
--- NOTE | 2019-08-19 04:00 | NUR ---
PATIENT AWAKE WANTING HIS BELONGINGS, GREGG GAVE HIM THE BAGS. HE DUG THROUGH THEM AND GOT HIS CLOTHES ASKING FOR THEM TO BE PUT ON. ASKED HIM WHY HE STATED "ISN'T IT TIME TO GO" INFORMED HIM HE WAS IN THE HOSPITAL, STATED HE FORGOT. COVERED HIM BACK UP.
[2019-08-19 05:37] LABS: BASOPHILS ABSOLUTE AUTO 0.01 K/mm3 (0.00-0.23); BASOPHILS PERCENT AUTO 0 % (0-2); EOSINOPHILS ABSOLUTE AUTO 0.18 K/mm3 (0.00-0.68); EOSINOPHILS PERCENT AUTO 3 % (0-6); Hematocrit 33.7 % (37.0-53.0); Hemoglobin 10.4 g/dL (13.5-17.5); IMMATURE GRAN ABSOLUTE AUTO 0.07 K/mm3 (0.00-0.10); IMMATURE GRAN PERCENT AUTO 1 % (0-1); LYMPHOCYTES ABSOLUTE AUTO 1.19 K/mm3 (0.84-5.20); LYMPHOCYTES PERCENT AUTO 21 % (21-46); MONOCYTES ABSOLUTE AUTO 0.71 K/mm3 (0.16-1.47); MONOCYTES PERCENT AUTO 13 % (4-13); Mean Corpuscular HGB 25.7 pg (26.0-34.0); Mean Corpuscular HGB Conc 30.9 g/dL (31.5-36.5); Mean Corpuscular Volume 83 fL (80-100); Mean Platelet Volume 10.5 fL (9.1-12.4); NEUTROPHILS ABSOLUTE AUTO 3.46 K/mm3 (1.96-9.15); NEUTROPHILS PERCENT AUTO 62 % (41-73); Platelet Count 160 K/mm3 (150-400); RDW Coefficient Variation 16.7 % (11.7-14.2); RDW Standard Deviation 50.9 fL (35.1-46.3); Red Blood Cell Count 4.04 M/mm3 (4.30-5.90); White Blood Cell Count 5.62 K/mm3 (4.00-11.30)
[2019-08-19 06:08] LABS: Albumin, Blood 2.2 g/dL (3.4-5.0); Anion Gap 9 mmol/L (6-16); Blood Urea Nitrogen 29 mg/dL (8-24); Bun/Creatinine Ratio 17.8 (12.0-20.0); CO2, Blood 24 mmol/L (21-32); Calcium, Blood 8.3 mg/dL (8.5-10.1); Chloride, Blood 108 mmol/L (98-108); Creatinine, Blood 1.63 mg/dL (0.60-1.20); Glomerular Filtration Rate 46 (60-); Glucose, Blood 84 mg/dL (70-99); Phosphorus, Blood 3.1 mg/dL (2.5-4.9); Potassium, Blood 3.9 mmol/L (3.5-5.5); Sodium, Blood 141 mmol/L (136-145)
--- NOTE | 2019-08-19 06:25 | NUR ---
SHIFT SUMMARY: 63 Y/O MALE ADMITTED FOR ACUTE RENAL FAILURE AND UTI. RADHA WAS TRANSFERRED TO THIS ROOM FROM ROOM 361. HE IS ALERT TO SELF AND PLACE BUT THE NIGHT WENT ON HE CONTINUED TO GET CONFUSED ABOUT WHERE HE WAS AT. HE WAS EASILY REORIENTED. IV ANTIBOTICS INFUSED WITH IV FLUIDS AT KVO, WITH NO PROBLEMS. CATHETER REMAINED PATENT. WOUND VAC MAINTAINED SUCTION AT 120MMGH. NO OTHER ACUTE CHANGES WERE TO NOTE THIS SHIFT. WILL REPORT TO DAY SHIFT RN.
--- NOTE | 2019-08-19 17:24 | NUR ---
PT AOX3 GETS CONFUSED AND AGITATED AT TIMES. PT TURNE AND CARED FOR. WOUND VAC RUNNING WELL. PT HAS BEEN WANTING TO VERBALLY COMPLAIN AND CURSE TODAY. AT TIMES HE CAN BE APPROPRIATE. PT WILL REQUEST DOOR CLOSED AND THEN OTHER TIMES REQUEST IT SHUT. PT STATES HE WOULD LIKE TO GO HOME AND DOES NOT UNDERSTAND WHEN REASONS FOR HIM TO BE AT THE HOSPITAL ARE EXPLAINED. PT HAD HIS MOTHER VISIT TODAY AND SEEMED A LITTLE KINDER WHEN SHE WAS PRESENT.PT USES CALL LIGHT WHICH IS WITHIN REACH AT THIS TIME. NO DISTRESS NOTED WILL CONTINUE TO MONITOR.
--- NOTE | 2019-08-19 19:16 | NUR ---
RADHA WAS YELLING OUT AT STAFF DURING REPORT. WENT INTO THE ROOM, HE ASKED FOR A BLANKET HE THREW MOST OF THEM ONTO THE FLOOR. STATES HE SPILLED MILK ON THEM. GAVE HIM ANOTHER BLANKET. HE WAS EATING DINNER AND CONTINUED TO SPILL THINGS, WHEN OFFERING ASSISTANCE, HE YELLED AT ME TELLING ME TO GET OUT. ASKED IF I COULD DO ASSESSMENT, HE ONLY ALLOWED ME TO LISTEN TO HIS HEART AND LUNGS BEFORE PUSHING ME AWAY. VERY IRRITABLE AND AGGRESSIVE AT THIS TIME. ASKED WHAT I CAN DO TO HELP HE DID NOT SAY ANYTHING. WILL CONTINUE TO SHENA.
--- NOTE | 2019-08-20 00:09 | NUR ---
PATIENT WOKE UP SLIGHTLY TO ALLOW MED ADMINISTRATION, NO YELLING TONIGHT, WAS COOPERATIVE. HEPARIN GIVEN. IV ANTIBOTIC INFUSING. CATH DRAINING.
--- NOTE | 2019-08-20 01:58 | NUR ---
RADHA IS SLEEPING GOOD TONIGHT, HAS NOT WOKEN UP YELLING LIKE PREVIOUS NIGHT. NO SIGNS OF DISTRESS. CALL LIGHT IN REACH.
--- NOTE | 2019-08-20 05:12 | NUR ---
SHIFT SUMMARY: 63 Y/O MALE ADMITTED FOR ACUTE KIDNEY INJURY, UTI, SEPSIS. RADHA AT START OF SHIFT WAS VERY IRRITABLE AND DIFFICULT TO REDIRECT. GAVE HIM SPECIFIC INSTRUCTION ON CARE TONIGHT WHICH GAVE HIM THE CONTROL OF WHAT HE COULD DO IN BETWEEN. THIS HELPED TO CALM HIM DOWN. HE FELL ASLEEP EARLY ON IN THE SHIFT AND SLEPT GOOD THROUGHOUT THE NIGHT. ALLOWED MIDNIGHT MEDS TO BE GIVEN, BUT WOULD NOT ALLOW TRAILHEAD CONSTRUCTION WORKER TO DO MORNING VITALS. HE HAD NO ACUTE CHANGES OR CONCERNS. WILL REPORT OFF TO DAY SHIFT.
--- NOTE | 2019-08-20 18:27 | NUR ---
NO ACUTE CHANGES NOTED, NO CURRENT COMPLAINTS OF PAIN OR DISCOMFORT NOTED. SMITH IS PATENT AND DRAINING YELLOW URINE. NO OTHER ISSUES NOTED AT THIS TIME. WOUND VAC IS IN PLACE. WILL CONTINUE TO MONITOR FOR CHANGES.
--- NOTE | 2019-08-21 05:18 | NUR ---
SHIFT SUMMARY PT HAS RESTED MOST OF THE NIGHT. PT IS A/O TO SELF, ANSWERS SOME QUESTIONS APPROPRIATLY, BUT A LOT OF HIS SPEECH IS NONSENSICAL. PT MOOD IS LABILE. MEDICATED WITH ROXANOL FOR GENERALIZED PAIN WITH EFFECT. PT REFUSES TO BE REPOSITIONED A LOT OF THE TIME, AND IS MOST COMFORTABLE ON HIS BACK. SMITH IN PLACE PATENT AND DRAINING. O2 IN PLACE. NO ACUTE CHANGES TO REPORT OVERNIGHT. BED IN LOWEST POSITION, CALL LIGHT WITHIN REACH. WILL CONTINUE TO MONITOR AND REPORT TO ONCOMING RN.
[2019-08-21 05:37] LABS: Albumin, Blood 2.4 g/dL (3.4-5.0); Anion Gap 5 mmol/L (6-16); Blood Urea Nitrogen 16 mg/dL (8-24); Bun/Creatinine Ratio 11.9 (12.0-20.0); CO2, Blood 27 mmol/L (21-32); Calcium, Blood 8.5 mg/dL (8.5-10.1); Chloride, Blood 110 mmol/L (98-108); Creatinine, Blood 1.34 mg/dL (0.60-1.20); Glomerular Filtration Rate 57 (60-); Glucose, Blood 91 mg/dL (70-99); Phosphorus, Blood 2.2 mg/dL (2.5-4.9); Potassium, Blood 4.2 mmol/L (3.5-5.5); Sodium, Blood 142 mmol/L (136-145)
--- NOTE | 2019-08-21 16:26 | NUR ---
PT IS A/OX3, PLEASANT AND COOPERATIVE SO FAR TODAY, THE PT APPEARS TO BE BREATHING EASILY AT REST, THE PT WAS MEDICATED FOR PAIN WITH TYLENOL X1 SO FAR THIS SHIFT, ATIVAN WAS GIVEN WITH THAT X1 SO FAR THIS SHIFT, THE PT DENIED ANY NAUSEA OR SOB, THE PT HAS BEEN BEDREST TODAY, PROCEDURE NURSE RUMA STATED THAT SHE WOULD CHANGE THE PTS WOUND VAC TODAY, THE PTS MOTHER WAS IN TO SEE HIM TODAY, [facility], WILL CONTINUE TO MONITOR AND ASSESS FOR CHANGES
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
--- NOTE | 2019-08-22 17:54 | NUR ---
PT IS A/OX3, MOSTLY COOPERATIVE, TODAY THE PT WAS AGITATED AND USEING FOUL OBSCENE LANGUAGE TO THE STAFF, DEMANDING TO GET DRESSED SO THAT HE COULD GET UP AND WALK HOME, THIS IS A DIFFERENT CHANGE IN THE PTS ATRTITUDE COMPARED TO YESTERDAY WHEN HE WAS VERY COMPLIANT AND THANKFULL, THE PTS MOTHER CALLED AND WAS ABLE TO CALM AND REORIENT THE PT, THE PT WAS GIVEN ATIVAN AND AT THIS TIME SEEMS TO BE LESS AGITATED, THE PT APPEARS TO BE BREATHING EASILY ON RA AT THIS TIME, CALL LIGHT IN REACH, WILL CONTINUE TO MONITOR AND ASSESS FOR CHANGES
--- NOTE | 2019-08-23 07:37 | NUR ---
PATIENT WAS GOOD AND COOPERATIVE WITH CARE FOR THE MOST PART FOR NOC SHIFT. INTERMITTENTLY BECOMING LOUD AND UNCOOPERATIVE, BUT MAINTAINING A GENTLE TONE HELPS QWELL THE ATTITUDE QUICKLY. I FOUND THE PATIENT TO ALMOST CHILD-LIKE IN HIS MANNER AND RESPONSES. BED LOW AND AND LOCKED AND ALARMED. CALL SPEARS WITHIN REACH.
--- NOTE | 2019-08-23 17:03 | NUR ---
NO ACUTE CHANGES. PATIENT HAS BEEN FRIENDLY AND COOPERATIVE WITH STAFF SHOWING NO SIGNS OF AGGRESSION . HE CONTINUES TO HAVE LOOSE STOOLS WHICH HE ALLOWS STAFF OT CLEAN . THIS NURSE CHANGED HIS WOUNDVAC THIS SHIFT. CATH WAS CLEANED PER PROTOCOL. CALL LIGHT WITH IN REACH.
--- NOTE | 2019-08-24 07:19 | NUR ---
PATIENT WAS GOOD OVERALL, INTERMITTENT OUTBURSTS HAPPEN BUT IT BECOMES PLAIN THAT ITS NOT INTENTNIONAL BUT RATHER POOR IMPULSE CONTROL. THE PATIENT HAD MUCOUSY/OILY CLEAR YELLOW STOOLS DURING THE SHIFT. HIS WOUND VAC LOST ITS SEAL AND HAD TO BE CHANGED. NO ORDER FOR THE WOUND VAC FOUND. PASSED THIS TO DAY NURSE.
--- NOTE | 2019-08-24 17:59 | NUR ---
NO ACUTE CHANGES TO PATIENT THIS SHIFT. HE WAS MORE SOMNOLENT TODAY BUT WAS COMPLIANT WITH CARES. HE REDIRECTS EASILY AND IS ABLE TO EXPRESS ANY OF HIS NEEDS. CALL LIGHT WITHIN REACH.
--- NOTE | 2019-08-25 04:48 | NUR ---
SHIFT SUMMARY RADHA'S LS CLR T/O AND BT+. RADHA TOOK MOST OF HIS MEDS T/O THE NIGHT BUT DID REFUSE HEPARIN. HE WAS AGITATED AND IRRITATED WITH THIS RN AND ALSO THE REST OF THE STAFF WHO ATTEMPTED TO GIVE HIM HIS IV ANTIBIOTICS AND HEPARIN INJECTION. HE WASN'T COOPERATIVE WITH ANY OF US UNTIL WE BROUGHT HIM SOME ORANGE SHERBET, THEN HE ALLOWED THIS RN TO START HIS IV ANTIBIOTICS.
[2019-08-25 07:16] LABS: BASOPHILS ABSOLUTE AUTO 0.03 K/mm3 (0.00-0.23); BASOPHILS PERCENT AUTO 0 % (0-2); EOSINOPHILS ABSOLUTE AUTO 0.07 K/mm3 (0.00-0.68); EOSINOPHILS PERCENT AUTO 1 % (0-6); Hematocrit 34.8 % (37.0-53.0); Hemoglobin 10.7 g/dL (13.5-17.5); IMMATURE GRAN ABSOLUTE AUTO 0.35 K/mm3 (0.00-0.10); IMMATURE GRAN PERCENT AUTO 4 % (0-1); LYMPHOCYTES ABSOLUTE AUTO 1.32 K/mm3 (0.84-5.20); LYMPHOCYTES PERCENT AUTO 15 % (21-46); MONOCYTES ABSOLUTE AUTO 0.75 K/mm3 (0.16-1.47); MONOCYTES PERCENT AUTO 9 % (4-13); Mean Corpuscular HGB 25.7 pg (26.0-34.0); Mean Corpuscular HGB Conc 30.7 g/dL (31.5-36.5); Mean Corpuscular Volume 84 fL (80-100); Mean Platelet Volume 9.9 fL (9.1-12.4); NEUTROPHILS ABSOLUTE AUTO 6.34 K/mm3 (1.96-9.15); NEUTROPHILS PERCENT AUTO 72 % (41-73); Platelet Count 196 K/mm3 (150-400); RDW Coefficient Variation 17.3 % (11.7-14.2); RDW Standard Deviation 49.9 fL (35.1-46.3); Red Blood Cell Count 4.17 M/mm3 (4.30-5.90); White Blood Cell Count 8.86 K/mm3 (4.00-11.30)
[2019-08-25 07:29] LABS: Anion Gap 8 mmol/L (6-16); Blood Urea Nitrogen 15 mg/dL (8-24); Bun/Creatinine Ratio 13.8 (12.0-20.0); CO2, Blood 21 mmol/L (21-32); Calcium, Blood 8.5 mg/dL (8.5-10.1); Chloride, Blood 113 mmol/L (98-108); Creatinine, Blood 1.09 mg/dL (0.60-1.20); Glomerular Filtration Rate >60 (60-); Glucose, Blood 73 mg/dL (70-99); Potassium, Blood 3.9 mmol/L (3.5-5.5); Sodium, Blood 142 mmol/L (136-145)
--- NOTE | 2019-08-25 11:20 | NUR ---
PT ANGRY, IRRITABLE, CURSING @ STAFF, DEMANDING WE LEAVE HIS ROOM THIS AM. HE DEMONSTRATES CONFUSION, STATES "GET OUT OF MY TRAILER", WHEN REORIENTED TO PLACE HE BECOMES INCREASINGLY ANGRY. ATTEMPTS TO CALM/REASSURE UNSUCCCESSFUL. PT REFUSES MEDICATIONS, AIRCRAFT POWERTRAIN REPAIRER NOTIFIED, SHE IS ABLE TO GET PT TO TAKE AM MEDS RELUCTANTLY. DR GARCIA IN TO SEE PT., HE CONTINUES RUDE, IRRITABLE W DR. DEMPSEY CALL HIS MOTHER @ PT'S REQUEST, SHE COME IN & MEET Anaya LANZA RNRAPID OUTSOLE STITCHER.
--- NOTE | 2019-08-25 15:35 | NUR ---
SUMMARY PT WAS EXTREMELY AGITATED, ANGRY, CURSING & THREATENING THIS AM. RUDE BEHAVIOR TOWARD DR GARCIA. HE WAS SOMEWHAT CONFUSED, ATTEMPTS TO REORIENT/REASSURE UNSUCCESSFUL @ THAT TIME. DR CALLED HIS MOTHER @ HIS REQUEST, SHE CAME TO HOSP TRIED TO CALM PT W/O SUCCESS, HAD TO LEAVE ROOM D/T PT VERBAL ABUSE. LATER SHE CAME BACK W BORING MILL SET UP OPERATOR Adams REAL, PT WAS ABLE TO CALM HIMSELF & HAS BEEN PLEASANT/COOPERATIVE SINCE. ALLOWED ASSESSMENT, ALLOW RESTART IV SITE, ALLOW WOUND VAC DRSG CHANGE. CREATIVE DIRECTOR STATE @ TIME OF DSG CHANGE NOTICE MUCOUSY DISCHARGE IN ATTENDS POSSIBLY FROM RECTUM, WILL MX. HE IS A/O X2, HX TBI, PARAPLEGIC, STATE NO FEELING IN LEGS. DX UTI, DR GARCIA STATE CONTINUE IV ANTIBX AT LEAST 2 MORE DAYS. CHRONIC SMITH CATH PATENT/DRNG DRK YELLOW URINE. VSS.
--- NOTE | 2019-08-25 19:47 | NUR ---
REFUSES PM MEDS PT REFUSED PAIN MEDS. STATES, "NO THANK YOU. ILL TAKE THEM A DIFFRERMT DAY."
--- NOTE | 2019-08-25 22:39 | NUR ---
PT NOW ACCPETING PM MEDS AND MIDNIGHT IV ABX. CALM AND COOPERATIVE AT THIS TIME.
--- NOTE | 2019-08-26 05:23 | NUR ---
SHIFT SUMMARY PT HAS BEEN IN A CALM MOOD, ONLY GROWS IRRITABLE ONCE OR TWICE. REFUSED PM MEDS, THEN APOLOGIZED AND ACCEPTED THEM ABOUT AN HOUR LATER. THIS AM, PT IS NOT ALLOWING RN AND INTERNET MARKETING CONSULTANT TO CHECK VITALS, ATTENDS CHANGE, OR REPOSITION. STATES, "COME BACK IN 3 HRS, IM SLEEPING." DENIES PAIN OR DISCOMFORT. IV ABX PER ORDERS. SMITH CATH PATENT AND DRAINING. WOUND VAC IN PLACE. WILL CONT TO MONITOR AND PROVIDE CARE UNTIL PRESUMED BY ONCOMING RN.
--- NOTE | 2019-08-26 14:35 | NUR ---
PATIENT REFUSED TO BE UP IN A CHAIR.
--- NOTE | 2019-08-26 17:29 | NUR ---
summary PT HAS BEEN PLEASANT/COOPERATIVE T/O DAY, NO CURSING OR ANGER OUTBURSTS. HE STATE NO PAIN/DISCOMFORT. ALLOWS REPOSITIONING PRN. HX PARAPLEGIC, STATE NO FEELING BELOW UMBILICUS. DX ARF HAS RESOLVED, IV ANTIBX R/T UTI CONTINUE. WBC WNL. AFEBRILE, VSS. HE HAS NOT HAD BM FOR 2 DAYS, CLEAR MUCOUSY RECTAL DISCHARGE NOTED. MIRALAX GIVEN THIS AM, PRN MOM 10ML GIVEN THIS EVENING HOWEVER NO BM YET. WOUND VAC DRSG L BUTTOCK FAIL TODAY, CHANGED. WAIST CUTTER STATE CONTINUING DIFFICULTY W PLACEMENT.
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
--- NOTE | 2019-08-27 17:48 | NUR ---
SHIFT SUMMARY CARE MANAGEMENT IS SEEKING PLACEMENT FOR THIS PT. PLAN IS TO SWITCH TO PO ANTIBIOTICS TOMORROW. NO OTHER CHANGES THIS SHIFT. IV ANTIBIOTICS GIVEN ORDERED. PT DOES EAT 100% OF MEALS. CODE STATUS CHANGED TO LIMITED-RX ONLY OF TODAY.
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
--- NOTE | 2019-08-28 04:47 | NUR ---
63 year old MAle hx TBI paraplegia and MRSA continues in contact isolation. HAs intact wound vac to lt buttock, no measurable drainage to cannister. PT labile at times other times remorseful. He did refuse cares and vital signs several times. Medicated with oral ativan x 1 with helpful effect but he continues to refuse vital signs after administration. PT's Mother who is his POA changed from full code to limited code with medication no CPR. Merlos patent draining, intermittant leaking around merlos cath. Bowel care and fluids offered. Take orals poorly drank 1/2 glycernia bites snack refused dinner.
--- NOTE | 2019-08-28 13:58 | NUR ---
Pt calling out. Entered his room. He is currently eating his lunch. He denies pain. He states that he thinks he would like someone to order him a wheelchair "That would be very helpful for me." No further requests. Chart reviewed.
--- NOTE | 2019-08-28 16:29 | NUR ---
SHIFT SUMMARY PT'S MOTHER CAN NO LONGER PROVIDE PT CARE. PT AWAITING PLACEMENT. CARE MANAGEMENT IS MAKING ARRANGEMENTS. CHRONIC SMITH PATENT AND DRAINING. BOWEL CARE BEGAN TODAY. WOUND VAC DRESSING CHANGE PERFORMED TODAY. IV ANTIBIOTICS DISCONTINUED TODAY. PT HAS A POOR APPETITE. DENIES PAIN. CONTACT PRECAUTIONS FOR MRSA IN THE WOUND.
--- NOTE | 2019-08-29 06:01 | NUR ---
PT refused AM lab and cussed out staff this AM when they turned on light to provide cares. Lab called to say PT had refused lab draw. Reapploach as needed.
--- NOTE | 2019-08-29 18:12 | NUR ---
PATIENT A/OX4, COOPERATIVE WITH CARE THIS SHIFT. PATIENT DOES REFUSE CARE AT TIMES. SMITH TO GRAVITY. PATIENT IS A PARAPLEGIC, HX OF TBI. TURNING Q2 HOURS, WOUND VAC TO L BUTTOCK WOUND REMAINS C/D/I, CHANGED 08/28/19. 22G IV TO R WRIST WNL AND SL. TOLERATING DIET. CONTACT PRECAUTIONS FOR MRSA IN WOUND AND NARES. AWAITING DETENTION PLACEMENT.
--- NOTE | 2019-08-30 01:17 | NUR ---
BEGINNING SHIFT SUMMARY ASSUMED CARE OF PT AT 1900. PT WAS SITTING IN BED. PT ALSERT AND ORIENTED. HEART SOUNDS REGULAR, PERIPHERAL PULSES STRONG, IV IN R ARM SALINE LOCKED, PT DOESNT HAVE FEELING BLE DUE TO PARALYSIS. LUNG SOUNDS CLEAR, DENIES SOB. BOWEL TONES HYPERACTIVE, ABDOMEN DISTENDED, PT STATES NORMAL. PT HAS WOUND VAC ON HIS L BUTTOCK, NO DRAINAGE IN THE CHAMBER AT THIS TIME. PT IS CURRENTLY SLEEPING IN HIS BED. CALL LIGHT IN REACH, BED IN LOWEST POSTION, WILL CONTINUE TO MONITOR.
--- NOTE | 2019-08-30 05:04 | NUR ---
END SHIFT SUMMARY NO ACUTE CHANGES NOT3ED THOUGHOUT THE SHIFT. PT WAS AGITATED WHEN AWOKEN FOR LABS AND ATTENDS CHANGE, PT APOLIGIZED AFTERWARDS. NEIDA AREA RED, BLUE CREAM APPLIED. NO DISCHARGE NOTED IN WOUND VAC, BOTTOM DISCOLORED BUT BLANCHES. PT IS CUTTENTLY BACK TO SLEEP, CALL LIGHT IN REACH, BED IN LOWEST POSITION, WILL CONTINUE TO MONITOR UNTIL DAYSHIFT NURSE ARRIVES.
--- NOTE | 2019-08-30 08:00 | NUR ---
PT A/O IRRITABLE, DENIES PAIN. TOLD ME TO GET OUT. CONTINUED WITH ASSESMENT. COMPLAINING. H/R REG, LIGHT MURMER NOTED. NO TELE. LUNGS CLER, RESP EASY UNLABORED. ON R.A. BT X4 LAST BM NOT KNOWN BY PT. VOIDS FOLEYCATH. YELLOW FLUID DRAINING. PT STATES NO FEELING MID ABD DOWN. WOUND VAC ON AND NO LEAKING NOTICED. BED IN LOW POSITION,C ALL LITE IN REACH, CALLS APPROP
--- NOTE | 2019-08-30 17:12 | NUR ---
PT MOOD IMPROVED SOMEWHAT AFTER NOON. FAMILY IN, IN AM. HE BASICALLY TOLD THEM TO LEAVE. IMPROVED WHEN MOTHER IN THIS EARLY AFT. HAS MAINTAINED MOSTLY REST OF DAY. DENIES PAIN. BED IN LOW POSITION, CALL LITE IN REACH, CALLS OUT FOR HELP. BED ALARM ON FOR SAFETY
--- NOTE | 2019-08-30 21:54 | NUR ---
BEGINNING SHIFT NOTE ASSUMED CARE OF PT AT 1900. PT WAS LYING IN BED SLEEPING. PT YELLED FROM THE ROOM TO SHUT THE DOOR, BUT WAS COOPERATIVE WITH CARE. HEART SOUNDS DISTANT, REGULAR, PERIPHERAL PULSES STRONG, IV IN R HAND SALINE LOCKED. FINE CRACKLES AT THE BASES OF LUNGS, DENIES DYSPNEA, RA. BOWEL SOUNDS HYPERATIVE, ABDOMEN NONTENDER, MODERATLY DISTENDED. AT 2044 WOUND VAC TAKEN OFF PER CHARGE NURSE DUE TO NO DR ORDER, PACKED WITH CALCIUM ALGINATE AND MEPELX PLACED UNTIL DR ASSESSES WOUND, NEW PICTURES TAKEN, NO DRAINAGE NOTED, PT TOLERATED WELL. SMITH LEAKING, IRRIGATED WITH 20ML OF SALINE, NO LEAKING NOTED AFTERWARDS, URINE CLOUDY, FOUL SMELLING AND DARK. PT IS CURRENTLY SLEEPING, CALL LIGHT IN REACH, BED IN LOWEST POSTION, WILL CONTINUE TO MONITOR.
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
--- NOTE | 2019-08-31 10:22 | NUR ---
SPOKE TO DR JAIN. SETH TO RESTART WOUND ORDERS TO CONTINUE PER WOUND CLINIC.
--- NOTE | 2019-08-31 11:00 | NUR ---
WOUND VAC REPLACED WITH HELP OF ARLETH ALEX.
--- NOTE | 2019-08-31 17:27 | NUR ---
PT HAS HAD GOOD FRIENDLY AM INTERACTIONS UNTIL THIS AFT. ADMIN SEROQUEL. HAS QUIETED DOWN, STILL IRRITABLE. DID PLACE NEW WOUND VAC DRESSING TODAY. NO OTHER CONCERNS AT THIS TIME. BED IN LOW POSITION, CALL LITE IN REACH, CALLS OUT FOR NEEDS.
--- NOTE | 2019-09-01 06:24 | NUR ---
SHIFT SUMMARY SLEPT WELL T/O NIGHT. NO ACUTE CHANGES THIS SHIFT. AOX3. LABILE, IRRITABLE @TIMES, HOWEVER PLEASENT DURING CARE. VSS. DENIES PAIN, N/V, DYSPNEA. CHANGED WOUND DRESSING ON L BUTTOCKS THIS AM SINCE BM HAD LEAKED UNDER OTHER DRESSING, PRESSURE CONTINUOUS @120. ALSO NOTICED PT REMOVED IV, WHEN ASKED WHAT HAPPENED PT STATED HE DID NOT WANT ANOTHER & FELT LIKE HE DID NOT NEED IT ANYMORE, I WILL RELAY THIS TO ONCOMING NURSE TO SEE IF PT STILL NEEDS IV ACCESS. CALL LIGHT IN REACH & I WILL CONTINUE TO MONITOR UNTIL DAY SHIFT RN ASSUMES CARE.
--- NOTE | 2019-09-01 18:42 | NUR ---
SHIFT SUMMARY THE PATIENT HAD MOMENTS OF IRRITABILITY, BUT ALL-IN-ALL AN UNEVENTFUL DAY. VITALS STABLE. NO ACUTE CHANGES NOTED DURING THIS SHIFT. WILL CONTINUE TO MONITOR AND PROVIDE CARE NEEDED.
--- NOTE | 2019-09-01 21:31 | NUR ---
PATIENT IRRITABLE CURSING AT STAFF AND DURING ASSESSMENT. WILL CONTINUE TO MONITOR
--- NOTE | 2019-09-02 03:29 | NUR ---
SHIFT SUMMARY PATIENT HAD NO ACUTE CHANGES OBSERVED. AXOX 3; FORGETFUL AT TIMES. IRRITABLE AT SHIFT CHANGE TO STAFF AND FOR THE NEXT THREE HOURS. VSS/AFEBRILE. DENIES PAIN, SOB, AND N/V. NO IV ACCESS. SMITH PATENT AND DRAINING FOR RETENTION. PARPALEGIC AND BEDFAST. CONTACT PRECAUTIONS. TOOK MEDICATION WHOLE WITH WATER. CALL LIGHT IN REACH. BED IN LOWEST POSITION. WILL CONTINUE TO MONITOR UNTIL DAY SHIFT NURSE ASSUMES CARE.
--- NOTE | 2019-09-02 09:43 | NUR ---
ALLOWED PATIENT TO SLEEP IN THIS MORNING HOPING HE WOULD WAKE IN A GOOD MOOD. WENT IN AT 0930 AND HE WAS IN A VERY IRRITABLE MOOD AND DID NOT EVEN WANT ME IN THE ROOM. I DID GET A QUICK ASSESSMENT ON HIM, TO THE EXTEND HE WOULD ALLOW. HE REFUSED TO TAKE ALL HIS MORNING MEDICATIONS; DR GARCIA NOTIFIED IN PERSON.
--- NOTE | 2019-09-02 15:58 | NUR ---
SHIFT SUMMARY THE PATIENT HAS HAD A DIFFICULT DAY AND BEEN VERY IRRITABLE WITH STAFF. THE PATIENT "FIRED" ME FROM BEING HIS RN THIS AM AFTER I WOKE HIM UP AT 0930 TO DO AN ASSESSMENT AND OFFER HIS MEDICATIONS, WHICH HE REFUSED ALL OF. THE PEDICAB DRIVER JUST WENT TO OBTAIN HIS VITALS AND THE PATIENT SWUNG AT HER. THE PEDICAB DRIVER LEFT HIS ROOM AT THAT TIME AND INFORMED ME OF THE INCIDENT. PATIENT'S CALL LIGHT WAS ON SHORTLY AFTERWARDS AND I WENT TO ANSWER IT; I ASKED THE PATIENT WHAT I COULD DO FOR HIM AND HIS RESPONSE WAS "NOTHING FROM YOU". I LEFT THE ROOM AND THE PATIENT QUICKLY PUSHED HIS CALL BUTTON ONCE AGAIN. I WENT IN AGAIN AND ASKED WHAT THE PATIENT NEEDED. HE STATED THAT HE NEEDED ME TO BE FIRED AND THE PEDICAB DRIVER TO BE FIRED. I LEFT THE ROOM AGAIN AND NOTIFIED THE CHARGE NURSE AND ASKED HER TO COME SPEAK WITH THE PATIENT WHO HAS BEEN UNRULEY, SWUNG HIS ARM AT THE PEDICAB DRIVER AND IS NOW YELLING FROM HIS ROOM. CHARGE NURSE CALLED NURSING CLEANING SUPERVISOR TO COME UP TO SPEAK TO PATIENT WITH HER. AWAITING SUPERVISORS AVAILABILITY TO COME UP FOR CONVERSATION WITH PATIENT TO OCCUR.
--- NOTE | 2019-09-03 04:03 | NUR ---
SHIFT SUMMARY PT'S MOTHER CAN NO LONGER CARE FOR PT. AWAITING PLACEMENT, CARE MANAGEMENT IS SEEKING OPTIONS. 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 NO IV ACCESS. CHRONIC SMITH. WOUND VAC IN PLACE ON LEFT BUTTOCK PRESSURE ULCER, MINIMAL DRAINAGE. 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 RA. MEDS TAKEN WHOLE WITH WATER. A&O X 3-4 W/PERIODS OF CONFUSION DUE TO TBI. INCONTINENT OF BM. DENIED PAIN, SOB, N/V. HX:LABILE MOOD, COOPERATIVE W/CARE THUS FAR THIS SHIFT. SLEPT COMFORTABLY THIS SHIFT.
--- NOTE | 2019-09-03 11:48 | NUR ---
PT MOTHER AT BEDSIDE, REPORTS PT IS FEELING NERVOUS AND REQUESTING ATIVAN. PT LYING IN BED WORRIED ABOUT HIS DISCHARGE AND WHEN HE WILL GET TO GO HOME. PRN ATIVAN GIVEN AT THIS TIME.
--- NOTE | 2019-09-03 16:45 | NUR ---
SHIFT SUMMARY- PT PLEASANT AND COOPERATIVE T/O MOST OF THE SHIFT. PT DOES HAVE MOMENTS OF CONFUSION WHERE HE WAS ADAMENT HE COULD GET UP AND AMBULATE TO THE SHOWER, PT WAS QUICKLY REORIENTED. LS CLEAR, ON RA. WOUND VAC TO LEFT BUTTOCK IN PLACE. SMITH PATENT AND DRAINING. PT REFUSES REPOSITIONING AT TIMES. NO OTHER ACUTE CHANGES THIS SHIFT. PT CONT TO AWAIT PLACEMENT.
--- NOTE | 2019-09-03 21:09 | NUR ---
PT STATUS I AM NOTING INCREASED CONFUSION THIS SHIFT, MORE SO THAN YESTERDAY'S SHIFT. I WILL CONTINUE TO MONITOR.
--- NOTE | 2019-09-04 04:14 | NUR ---
SHIFT SUMMARY THIS PT IS HALLUCINATING, CONFUSED. NOTE HX OF TBI. I FEEL HE IS MORE CONFUSED THAN MY PREVIOUS SHIFT WITH HIM. HE IS KNOWN TO REFUSE CARE AT TIMES WHEN HE PREFERS TO SLEEP. AWAITING PLACEMENT. CARE MANAGEMENT IS EXPLORING PLACEMENT AVAILABILITY. WOUND VAC IN PLACE FOR DECUB ULCER ON LEFT BUTTOCK, NO DRAINAGE. WOUND VAC DRESSING CHANGED YESTERDAY. 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 LIFT PT, USES AN ELECTRIC POWERCHAIR @ BASELINE. RA. NO IV ACCESS.
--- NOTE | 2019-09-04 16:47 | NUR ---
SHIFT SUMMARY- PT HAS BEEN PLEASANT AND COOPERATIVE T/O THE DAY. PT WITH GOOD APETITE. NO COMPLAINTS T/O THE DAY. PT DOES REFUSE REPOSITIONING AT TIMES. LS CLEAR, ON RA. HRR. WOUND VAC IN PLACE SUCTIONING CONT AT 120. CHRONIC SMITH PATENT AND DRAINING. PT AWAITING PLACEMENT. NO OTHER ACUTE CHANGES THIS SHIFT.
--- NOTE | 2019-09-05 03:58 | NUR ---
SHIFT SUMMARY PT DENIES DISCOMFORT OF ANY KIND. SLEPT COMFORTABLY THROUGHOUT SHIFT. ACCEPTED MEDICATIONS AT BEDTIME. LUIS PATEL PATENT AND DRAINING. ONE BM DURING SHIFT. VS WNL. CALM AND COOPERATIVE, NOT HALLUCINATING. HX:PARAPLEGIA, TBI. AWAITING PLACEMENT.
--- NOTE | 2019-09-05 18:06 | NUR ---
NO ACUTE CHANGES TO PATIENT. WOUND VAC DRESSING CHANGED THIS SHIFT AND WOUND APPEARS TO BE HEALING EXPECTED. PATIENT BECAME AGITATED THIS EVENING TOWARDS DINNER BUT SOON WAS APOLOGETIC AND COMPLIANT WITH STAFF. MOTHER HAD IN BEEN EARLIER THIS SHIFT. CALL LIGHT WITH IN REACH.
--- NOTE | 2019-09-06 05:04 | NUR ---
PT UNCOOPERATIVE WITH CARE THIS SHIFT. PT STATED THAT HE DIDN'T WANT ANYONE IN HIS ROOM AND TOLD EVERYONE TO "GET OUT OF HERE" EARLY IN THE SHIFT. PT REFUSED TO BE TURNED. PT ONLY ACCEPTED MINIMAL CARE THIS SHIFT. PT SLEPT THROUGH MOST OF THIS SHIFT. PT CURRENTLY SLEEPING IN BED.
--- NOTE | 2019-09-06 15:45 | NUR ---
PATIENT HAS BEEN IN VERY GOOD FORM TODAY, JOKING AND LAUGHING WITH STAFF. HE ALLOWED BOTH RN AND COAT CHECKER TO DO A BEDBATH. HE CONTINUES TO HAVE VERY LOOSE STOOL THOUGH NO MUCUS WAS OBSERVED DURING CHANGE. NO COMPLAINTS OF PAIN, SOB , NV NOTED FROM PATIENT. MOTHER AND FRIEND AT BEDSIDE . WOUND VAC WORKING PROPERLY. CALL LIGHT WITHIN REACH.
--- NOTE | 2019-09-07 05:02 | NUR ---
PT ALERT, ORIENTED, AND COOPERATIVE WITH CARE DURING THIS SHIFT. PT CALLED OUT FOR ASSISTANCE EVEN AFTER BEING REMINDED TO USE CALL LIGHT. PT'S WOUND VAC REPLACED THIS SHIFT DUE TO STOOL COMPRAMIZING THE INTEGRITY OF THE PREVIOUS ADHESIVE. PT TOLERATED THE REPLACEMENT WELL AND THANKED THE STAFF FOR CARING FOR HIM. PT SLEPT MOST OF THE SHIFT AFTER THE WOUND VAC REPLACEMENT AND IS CURRENTLY ASLEEP IN BED.
--- NOTE | 2019-09-07 17:51 | NUR ---
NO ACUTE CHANGES NOTED. PATIENT RESTFULL ALL DAY AND WANTS TO GO HOME. WANTS TO TALK TO DC PLANNING REGARDING THIS.
--- NOTE | 2019-09-07 22:28 | NUR ---
PT REFUSED NIGHT TIME VS AND MEDICATIONS. PT STATES SHE WANTS TO SLEEP UNINTERUPPTED. PT ASSESSED AND IS DOING WELL.
--- NOTE | 2019-09-08 04:00 | NUR ---
SHIFT SUMMARY PT WANTED TO BE LEFT UNDISTURBED THIS SHIFT. PT STATED HE DID NOT WANT HIS VS TAKEN OR TO TAKE HIS NIGHTTIME MEDS. PT HAS BEEN SLEEPING T/O SHIFT. PT IS CURRENTLY SLEEPING IN NO DISTRESS. CALL LIGHT IN REACH.
--- NOTE | 2019-09-08 05:35 | NUR ---
PT REFUSED MORNING VITALS. PT ATTEMPTED TO STRIKE THIS RN WHILE CHECKING FOR POSSIBLE ATTEND CHANGE. PT AGITATED AND REFUSING ALL CARE.
--- NOTE | 2019-09-08 12:14 | NUR ---
REAPPLIED WOUND DRESSING. PICTURES PLACED.
--- NOTE | 2019-09-08 15:45 | NUR ---
PT IS A/OX3, COOPERATIVE, THE PT CAN BECOME AGITATED AND DEMANDING AT TIMES, THE PT APPEARS TO BE BREATHING EASILY ON RA, THE PT HAS A GOOD APPETITE, LOOSE STOOLS MIRALAX WAS HELD THIS AM, THE PTS WOUND VAC WAS CHANGED TODAY, THE PT COOPERATED WITH THE PROCEDURE, THE PT DENIED ANY PAIN, CALL LIGHT IN REACH, WILL CONTINUE TO MONITOR AND ASSESS FOR CHANGES
--- NOTE | 2019-09-09 04:44 | NUR ---
SUMMARY: A/OX3 AND SPECIFIES NEEDS BY CALLING INTO HALLS. HE'S BEEN PLEASANT AND COOPERATIVE W/CARE BUT IS IRRITABLE AND IMPATIENT AT TIMES. SMITH REMAINS PATENT AND DRAINING W/TURN SCHEDULE MAINTAINED. NO BM YHID SHIFT. WOUND VAC TO SUCTION REMAINS INTACT, DX SECURE AND C/D/I. PT DENIED PAIN, NAUSEA AND ALL OTHER S/S DISTRESS. NO ACUTE CHANGES, VSS/AFEBRILE. AWAITING PLACEMENT. WCMARINO AND REPORT TO DAY RN.
--- NOTE | 2019-09-09 17:30 | NUR ---
PT IS A/OX3, COOPERATIVE, THE PT HAS BEEN MOSTLY PLEASANT T/O THE DAY TODAY, THE PT APPEARS TO BE BREATHING EASILY ON RA, THE PT WAS GIVEN A BED BATH BY THE INDUSTRIAL ECOLOGY TECHNICIAN TODAY AND THEN WAS UP INTO THE CHAIR, THE PY WAS OUT IN THE [place] IN THE CHAIR, FAMILY CAME IN TO SEE THE PT TODAY, THE PTS WOUND VAC DRESSING WAS REDONE BY THE CHECKER INISAI ESCOBAR, CALL LIGHT IN REACH, WILL CONTINUE TO MONITOR AND ASSESS FOR CHANGES
--- NOTE | 2019-09-10 04:24 | NUR ---
SUMMARY: PT A/OX3, SPECIFIES NEEDS AND IS MOSTLY COOPERATIVE W/CARE BUT OCCASIONALLY REFUSES REPOSITIONING. HE CAN BECOME IMPATIENT YELLING INTO HALLS FOR NONACUTE DEMANDS. HE WAS IN HIS RECLINER FOR PART OF SHIFT BUT SPENT MOST OF NOCTE COMFORTABLY ASLEEP IN BED. HE'S DENIED NEEDING PRN MEDS. WOUND VAC W/SUCTION REMAINS C/D/I. CHRONIC SMITH IS PATENT AND DRAINING. TURN SCHEDULE MAINTAINED AND HEELS FLOATED. NO ACUTE CHANGES, VSS/AFEBRILE. AWAITING PLACEMENT. CAMILO AND REPORT TO DAY RN.
--- NOTE | 2019-09-10 13:56 | NUR ---
WOUND VAC CHANGED YESTERDAY 09/09/19 BY KELLEY RICHEY RN. WILL CHANGE AGAIN TOMORROW.
--- NOTE | 2019-09-10 17:14 | NUR ---
SHIFT SUMMARY NO ACUTE CHANGES TO PRESENT THIS SHIFT. PT BOTH PLEASANT AND IRRITABLE THRU OUT THE DAY. UP TO CHAIR FOR SOME MEALS UNTIL WANTING TO GO BACK TO BED. GETS ESPECIALLY IRRITABLE IF HE DOESN'T GET HIS WAY AND FAST ENOUGH. LIFT USED TO TX PT TO CHAIR AND BACK. DR ELKINS IN TO SEE PT, NEW ORDERS PLACED FOR ARTIFICIAL TEARS, PER PT REQUEST. PT ALSO FOUND WITH YEAST TO AXILLARY AND GROIN AREA. DR ELKINS NOTIFIED FOR NYSTATIN. CHRONIC SMITH, PATENT AND DRAINING, WITH SOME SEDIMENT IN TUBING. WOUND VAC TO BUTTOCKS; CHANGED YESTERDAY. PER HOUSE DETECTIVE, WILL BE CHANGED AGAIN TOMORROW. REPOSITIONED TO THE EXTENT PT ALLOWS. PT WAITING PLACEMENT AT THIS TIME. CALL LT IN REACH. ABLE TO MAKE NEEDS KNOWN.
--- NOTE | 2019-09-11 03:15 | NUR ---
QUILLER RUNNER SUMMARY PT STATED HE HAS NOT SLEPT WELL THROUGH THE NIGHT ALTHOUGH HE APPEARED SLEEPING EVERYTIME STAFF CHECKED IN. DENIES PAIN, NAUSEA AND DIZZNIESS. PT IS IRRITABLE MOST OF TIME CARE IS PROVIDED. CHRONIC SMITH IN PLACE, PATENT AND DRAINING DARK CLOUDY URINE. WHEN TRYING TO REPOSITION PT, PT STATED THAT HE "REPOSITIONS HIMSELF". VSS, NO ACUTE CHANGES. ABLE TO MAKES NEEDS TO KNOWN BY YELLING OUT AND USING THE CALL LIGHT AT TIMES. WILL CONTINUE TO MOINTOR.
--- NOTE | 2019-09-11 14:04 | NUR ---
SMITH CATHETER PATIENT HAD LARGE AMOUNT OF THIS MUCOUS DISCHARGE FROM URETHRA AROUND SMITH CATHETER. ATTENDS ON PATIENT FULL OF THIS MUCOUS DISCHARGE. CHRONIC SMITH CATHETER REPLACED AND UA SENT PER PROTOCOL. LARGE AMOUNT OF SEDIMENT AND A FEW SMALL CLOTS RELEASED AFTER REINSERTION OF NEW SMITH. IMMEDIATE DRAINAGE OF 120 CC CLOUDY FOUL SMELLING URINE. PATIENT TOLERATED PROCEDURE WELL.
[2019-09-11 14:13] LABS: Source, Urine Catheter
[2019-09-11 14:24] LABS: Bilirubin, Urine Neg (Neg); Blood, Urine 5+ (Neg); Glucose Qualitative, Urine Neg (Neg); Ketones, Urine Neg (Neg); Leukocyte Esterase, Urine 3+ (Neg); Nitrite, Urine Neg (Neg); Protein, Urine 2+ (Neg); Specific Gravity, Urine 1.015 (1.003-1.022); Urobilinogen, Urine NORM (Normal)
[2019-09-11 14:53] LABS: Appearance, Urine Hazy (Clear); Color, Urine Yellow (P-Yellow)
[2019-09-11 14:54] LABS: Bacteria Many /hpf; Squamous Epithelial Cells Rare /hpf (Few); White Blood Cells, Urine TNTC /hpf (0-5)
--- NOTE | 2019-09-11 18:24 | NUR ---
WOUND VAC AND SMITH CATH CHANGED BY ELECTRO PLATER VANESA. SEE NOTES. PT AWAITING PLACEMENT. NO ACUTE CHANGES NOTED, WILL CONTINUE TO MONITOR AND REPORT TO ONCOMING RN
--- NOTE | 2019-09-12 04:32 | NUR ---
SOAP PRESS FEEDER SUMMARY PT SLEPT ALL NIGHT. DENIED PAIN, NAUSEA, DIZZINESS. SMITH PATENT AND DRAINING DARK URINE WITH SEDIMENTS. PT EXPRESSED HE DID NOT WANT TO BOTHERED DURING THE NIGHT AND WILL REPOSITION HIMSELF. PLEASANT AT TIMES BUT ALSO EASILY IRRITATED. LIKES TO HAVE DOOR SHUT. NO ACUTE CHANGES THIS SHIFT. AWAITING PLACEMENT.
--- NOTE | 2019-09-12 18:42 | NUR ---
PT HAS BEEN EXPRESSING FRUSTRATION AT STILL BEING IN THE HOSPITAL D/T PLACEMENT DIFFICULTIES. SAYS HE WANTS TO GO BUY A TRAILER AND PLACE IT IN A CAMP GROUND OUT OF TOWN. FORGETFUL OF THE FACT THAT HE IN NOT ABLE TO WALK AT TIMES. NO ACUTE CHANGES NOTED THIS SHIFT, WILL CONTINUE TO MONITOR AND REPORT TO ONCOMING RN
--- NOTE | 2019-09-13 05:03 | NUR ---
SHIFT SUMMARY PT IS A 64 Y/O MALE, ADMITTED FOR ACUTE RENAL FAILURE, CURRENTLY AWAITING PLACEMENT. HE IS A&O X 3, AND CAN BE IRRITABLE AT TIMES WITH NURSING STAFF. NO COMPLAINTS OF PAIN, NAUSEA OR SOB DURING THE NIGHT. VITAL SIGNS STABLE. NO ACUTE CHANGES IN PT CONDITION NOTED. WILL CONTINUE TO MONITOR AND TREAT PER EMAR UNTIL HAND OFF TO DAY SHIFT RN.
[2019-09-13 12:14] LABS: Hematocrit 42.5 % (37.0-53.0); Hemoglobin 13.2 g/dL (13.5-17.5)
--- NOTE | 2019-09-13 12:37 | NUR ---
HE HAS BEEN COOPERATIVE ALL DAY THUS FAR. HIS MOTHER IS VISITING HIM NOW. HE HAS BEEN TURNED T/O THE MORNING. WOUNC VAC DRESSING CHANGED X1 THIS MORNING BECAUSE BM GOT UNDER IT A LITTLE BIT. PHOTO AND MEASUREMENTS DONE. GROIN YEAST RASH IS MILD. NYSTATIN POWDER USED AFTER PERICARE GIVEN. HE HOLDS HIMSELF ON HIS SIDE WELL BUT NEEDS US TO INITIATE THE TURN. HE HAS MILD LEG SPASMS. U.O SHOWS LOTS OF SEDIMENT. CONTACT ISOLATION ONGOING FOR MRSA. HIS APPETITE IS GOOD.
[2019-09-13 12:39] LABS: Anion Gap 4 mmol/L (6-16); Blood Urea Nitrogen 20 mg/dL (8-24); Bun/Creatinine Ratio 18.3 (12.0-20.0); CO2, Blood 24 mmol/L (21-32); Calcium, Blood 8.8 mg/dL (8.5-10.1); Chloride, Blood 111 mmol/L (98-108); Creatinine, Blood 1.09 mg/dL (0.60-1.20); Glomerular Filtration Rate >60 (60-); Glucose, Blood 74 mg/dL (70-99); Potassium, Blood 4.3 mmol/L (3.5-5.5); Sodium, Blood 139 mmol/L (136-145)
--- NOTE | 2019-09-13 17:12 | NUR ---
HE IS RESTING WITH THE DOOR CLOSED NOW. BED ALARM ON. HE IS CALLING SOMEONE ON THE PHONE. NO CHANGES FROM EARLIER NOTE. HIS MOTHER VISITED. HIS WOUND VAC DRESSING WAS CHANGED. HIS U.O. IN THE SMITH IS YELLOW WITH LOTS OF SEDIMENT. I NOTIFIED THAT THE FINAL URINE CULTURE RESULTS BACK FROM 2 DAYS AGO. OTHER LABS TODAY WNL.
--- NOTE | 2019-09-14 05:37 | NUR ---
SHIFT SUMMARY PT IS A 64 Y/O MALE, ADMITTED FOR ACUTE RENAL FAILURE. HE IS A&O X 3, THOUGH CAN BE IRRITABLE AT TIMES WITH STAFF. NO COMPLAINTS OF ACUTE PAIN, NAUSEA OR SOB. PT SLEPT WELL DURING THE NIGHT. VITAL SIGNS STABLE. NO ACUTE CHANGES IN PT CONDITION NOTED. WILL CONTINUE TO MONITOR AND TREAT PER EMAR UNTIL HAND OFF TO DAY SHIFT RN.
--- NOTE | 2019-09-14 12:15 | NUR ---
HE HAS BEEN WATCHING TV AND EATING WELL THIS MORNING. HE HAD EXTRA HELPINGS AT BREAKFA[employer] AND THEN SNACKED LATER ON POPCORN BROUGHT IN BY A FRIEND. ASSESSMENT UNCHANGED FROM YESTERDAY. NO COMPLAINTS. SUCTION ON ON WOUND VAC. NO CURRENT DRAINAGE. URINE IN SMITH TUBING IS CLOUDY YELLOW WITH SOME SEDIMENT. HIS MOM IS HERE NOW TO EAT SOME LUNCH WITH HIM.
--- NOTE | 2019-09-14 18:41 | NUR ---
HE HAS HAD A GOOD DAY. HE HAD A BATH THIS EVENING AND A WOUND VAC DRESSING CHANGE BECAUSE OF STOOL GETTING UNDERNEATH THE DRESSING. VSS. NO LABS. NO COMPLAINTS.U.O. STILL CLOUDY WITH SEDIMENT.
--- NOTE | 2019-09-15 04:20 | NUR ---
Shift Summary Patient slept well overall. He did have a small emesis, but he did not have continuing nausea or discomfort. PRN zofran administered. Wound vac dressing remains intact and suction working. Assisted to reposition throughout the night, although patient demonstrated that he could pull himself somewhat from side to side with siderails.
--- NOTE | 2019-09-15 17:41 | NUR ---
PT AOX3 CAN BE COOPERATIVE AND WILL AT TIMES BE GRUMPY WITH HIS CARE. PT WANTS HIS DOOR CLOSED MOST OF THE DAY AND COMPLAINS HE DOES NOT LIKE THE FOOD HERE. PT CALLS APPROPRIATELY. DENIES PAIN AT THIS TIME. WILL CONTINUE TO MONITOR.
--- NOTE | 2019-09-16 03:59 | NUR ---
SHIFT SUMMARY RADHA HAS BEEN PLEASANT AND COOPERATIVE THIS SHIFT. LS WERE CLEAR AND DIMINISHED AND BT+ X4. HE APPEARS TO BE SLEEPING T/O THE NIGHT HE HASN'T BEEN TALKING IN HIS ROOM. SNORING IS HEARD PERIODICALLY WELL. NO C/O PAIN OR DISCOMFORT.
--- NOTE | 2019-09-16 17:33 | NUR ---
PT AO AND APPROPRIATE TODAY WITH CARE.PT DID NOT GET UPSET TODAY AND HAS BEEN DOING WELL. PT CALLING APPROPRIATELY AND COOPERATING WITH CARE. SMITH AND WOUND VAC ARE WORKING WELL AT THIS TIME. CALL LIGHT WITHIN REACH, NO DISTRESS NOTED.
--- NOTE | 2019-09-17 05:08 | NUR ---
SHIFT SUMMARY: PATIENT IS A&O X3, NO COMPLIANTS OF PAIN OR DISCOMFORT, VS ARE STABLE. PATIENT IS RESISTANT TO T&P AT TIMES. SMITH IS PATENT FOR A CLOUDY YELLOW URINE. WOUND VAC IS PATENT AND OPERATING WITHOUT DIFFICULTY, MINIMAL DRAINAGE OBSERVED IN TUBBING AND CANSITER. BED ALARM IS ON AND CALL SPEARS IS WITHIN REACH.
--- NOTE | 2019-09-17 15:52 | NUR ---
SUMMARY PT IS A/O X3, PLEASANT AFFECT T/O DAY. HX PARAPLEGIC, STATE NO FEELING BELOW WAIST. HE HAS GOOD STRENGTH BUE, ABLE TO PULL HIMSELF UP IN BED W TRAPEZE. CHRONIC SMITH CATH D/T RETENTION IS PATENT, BRITANY CLOUDY YELLOW URINE. WOUND VAC DRSG TO L BUTTOCK CHANGED TODAY, WOUND HEALING WELL. DR OROZCO STATE MAY USE NURSING JUDGEMENT FOR CONTINUATION OF WOUND VAC, WILL CONSULT PRINTED CIRCUIT LAYOUT TAPER TOMORROW. APPETITE GOOD, PT STATE HE HAD LRG BM EARLY AM, DECLINES MIRALAX THIS AM, BM NOT CHARTED. VSS.
--- NOTE | 2019-09-18 04:37 | NUR ---
SHIFT SUMMARY: VSS. AFEB. A/OX3. MAKES NEEDS KNOWN. EMOTIONALLY LABILE. MOSTLY PLEASANT, BUT WILL OCCASIONALLY AND UNPREDICTABLY SNAP AT STAFF AND MAKE THREATENING GESTURES IF HE IS ABOUT TO HIT. DENIES PAIN. WOUND VAC IN PLACE AND PROVIDING CONT SUCTION. NO DRAINAGE OBSERVED IN WOUND VAC TUBING. FC PATENT AND DRAINING CLOUDY YELLOW URINE WITH SMALL AMTS OF WHITE SEDIMENT. SLEPT THROUGH MOST OF THE NIGHT. BED LOW, ALARM ON, CALL BUTTON IN REACH.
--- NOTE | 2019-09-18 10:39 | NUR ---
PT DECLINED GETTING OOB TO CHAIR, STATE DOESN'T FEEL LIKE IT TODAY. DECLINE MIRALAX AGAIN TODAY, STATE HE IS NOT CONSTIPATED, STATE HAS BM APPROX Q3 DAYS & WILL GO WHEN READY. HE IS PLEASANT HOWEVER STATE FEELING FRUSTRATED WITH PLACEMENT ISSUES.
--- NOTE | 2019-09-18 15:45 | NUR ---
SUMMARY PT STATE FEELING SOMEWHAT HOPELESS THIS AM R/T PHYSICAL CONDITION & NOT HAVING A PLACE TO LIVE CURRENTLY. REASSURANCE PROVIDED, HE IS ABLE TO CHEER UP SOME. HIS MTHER WAS IN FOR SUPPORTIVE VISIT, BROUGHT HIM LUNCH. SOC SERV CONTINUES TO WORK ON FINDING ADEQUATE LIVING ARRANGEMENTS HOWEVER STATE NO ANSEWRS @ THIS TIME. THIS AM LUNGS RHONCHUS, PT STATE TO THIS IS NORMAL IN AM HOWEVER CONTINUES THIS AFTERNOON, PT ENCOURAGED TO COUGH/DEEP BREATHE & USE FLUTTER, DR GASCA NOTIFIED ORDER 2V CHEST XRAY. BIOX HAS BEEN 94-96% T/O DAY. WOUND VAC L BUTTOCK ULCER SITE D/C'D, HEALING WELL, FOAM DRSG APPLIED. PT HAS DECLINED OOB TO CHAIR TODAY.
--- NOTE | 2019-09-19 04:20 | NUR ---
SHIFT SUMMARY: A/OX3. VSS. MAKING NEEDS KNOWN. MORE AGITATED TONIGHT COMPARED TO LAST. SNAPPING AT STAFF AND REFUSING INTERACTION EARLY IN THE SHIFT. GAVE SPACE FOR ABOUT AN HOUR AND PT WAS AGAIN AGREEABLE TO CARES. EXPIRATORY RHONCHI IN B UPPER AND R MID LOBE. WET LUNG SOUNDS AUDIBLE STANDING IN ROOM WITH PT. ENCOURAGED COUGHING AND USE OF FLUTTER VALVE. PT STATES HE CAN'T COUGH AND REFUSED TO THE USE THE FLUTTER VALVE. O2 SATS 90-93% ON RA. EXPRESSED FRUSTRATION ABOUT STILL BEING IN THE HOSPITAL. CALLED OUT A FEW TIMES IN THE NIGHT BELIEVING HE WAS SEEING RATS. STAFF HELPED PT IDENTIFY THE OBJECTS HE SUSPECTED WERE RATS. HAS SLEPT INTERMITENTLY THROUGH THE NIGHT. DENIES PAIN. NO C/O PAIN. BED LOW, CALL BUTTON IN REACH.
--- NOTE | 2019-09-19 14:43 | NUR ---
CULTURES OBTAINED FROM NARES, RECTUM, L BUTTOCK WOUND AND THROAT TO ATTEMPT TO R/O (HISTORY OF) MRSA AND MDRO. SENT OFF TO LAB.
--- NOTE | 2019-09-19 15:41 | NUR ---
SHIFT SUMMARY THE PATIENT HAS EXHIBITED HIS "NORMAL" BEHAVIORS TODAY. IRRITABLE AND ANGRY ONE MOMENT AND THEN APPOLOGETIC THE NEXT. HE DID RELUCTANTLY ALLOW FOR ME TO COLLECT CULTURES TO R/O MRSA AND MDRO AND PENDING RESULTS FROM THE LAB. DRESSING TO L BUTTOCK CHANGED. NO NEW CHANGES TO REPORT AT THIS TIME.
--- NOTE | 2019-09-19 19:52 | NUR ---
PATIENT REFUSED VITALS. AGITATED AT THIS TIME YELLING AT STAFF.
--- NOTE | 2019-09-19 23:12 | NUR ---
PATIENT MORE COOPERATIVE WITH ASSESSMENT AND ATTENDS CHANGES THE SHIFT GOES ON.
--- NOTE | 2019-09-20 03:50 | NUR ---
SHIFT SUMMARY PATIENT HAD NO ACUTE CHANGES. AGITATED AT SHIFT CHANGE REFUSING VITALS AND COOPERATIVE A FEW HOURS LATER FOR REPOSITIONING AND ATTENDS CHANGE. AXOX 3 FORGETFUL. W/C BOUND BASELINE. NO IV ACCESS. SMITH PATENT AND DRAINING. DENIES PAIN, SOB, AND N/V. TAKES MEDICATION WHOLE IN APPLE SAUCE. VSS/AFEBRILE. CALL LIGHT IN REACH. BED IN LOWEST POSITION. WILL CONTINUE TO MONITOR UNTIL DAY SHIFT NURSE ASSUMES CARE.
--- NOTE | 2019-09-20 17:53 | NUR ---
SHIFT SUMMARY THE PATIENT WAS IN A MUCH BETTER MOOD THAN HE WAS YESTERDAY. I ALLOWED THE PATIENT TO SLEEP-IN UNTIL HE WOKE UP ON HIS OWN AND CALLED FOR STAFF. HE WILLINGLY TOOK ALL HIS MEDS, ALLOWED ME TO CHANGE HIS BANDAGE ON HIS L BUTTOCK AND WAS ALL-IN-ALL COOPERATIVE WITH STAFF. THERE HAVE BEEN NO OTHER CHANGES TO REPORT ON AT THIS TIME. WILL CONTINUE TO MONITOR AND PROVIDE CARE NEEDED.
--- NOTE | 2019-09-20 22:10 | NUR ---
PATIENT AGITATED SINCE SHIFT CHANGE REFUSED VITALS. INITIALLY REFUSED MEDS AND TOOK WITH A.S. PATIENT IRRITABLE CHANGING ATTENDS.
--- NOTE | 2019-09-20 22:47 | NUR ---
PATIENT PARINOID, REPORTS FAMILY/BROTHER IS UNDER BED. FIXATED FOR AN HOUR. WILL CONTINUE TO MONITOR.
--- NOTE | 2019-09-21 04:13 | NUR ---
SHIFT SUMMARY PATIENT HAD NO ACUTE CHANGES OBSERVED THIS SHIFT. REFUSED VITALS AND AGITATED FIRST HALF OF SHIFT. PARANOID BROTHER IS UNDER HIS BED. TURNED AND MEPILEX CHANGED ON LEFT BUTTOCK. DENIES PAIN, SOB, AND N/V. SMITH PATENT AND DRAINING. NO IV ACCESS, CONTACT PRECAUTIONS. CALL LIGHT IN REACH. BED IN LOWEST POSITION. WILL CONTINUE TO MONITOR UNTIL DAY SHIFT NURSE ASSUMES CARE.
--- NOTE | 2019-09-21 09:26 | NUR ---
ALL CULTURE OBTAINED ON WEDNESDAY 09/19 CAME BACK CLEAR FOR MRSA AND MDRO. PER JOSIE IN INFECTION CONTROL, THIS WOULD BE THE SECOND SET OF CLEARED CULTURES FOR MRSA, PENDING CLEAR RESULTS AND WE ONLY NEED ONE SET OF CLEAR CULTURES FOR MDRO. PATIENT TAKEN OFF OF ISOLATION THIS MORNING AT 0900 AFTER OBTAINING THE RESULTS.
--- NOTE | 2019-09-21 12:49 | NUR ---
LATE DOCUMENTATION FOR THIS MORNING. PATIENTS VITALS OBTAINED AND O2 SATS NOTED TO BE 88-89% ON RA. ASKED PATIENT IF HE WAS WILLING TO WEAR O2 TO HELP RAISE HIS O2 SATS AND THE PATIENT ADEMATELY REFUSED.
--- NOTE | 2019-09-21 16:49 | NUR ---
SHIFT SUMMARY THE PATIENT WAS VERY IRRITABLE TODAY, HOWEVER HE DID ALLOW FOR STAFF TO REPOSITION HIM, PROVIDE CATH CARE AND CHANGE HIS BANDAGE ONE TIME THIS SHIFT. HE ALSO ALLOWED HIS VITALS TO BE CHECKED TWICE THIS SHIFT, WHICH IS NOT USUAL FOR HIM. HE DID HAVE LOW O2 SATS THIS MORNING BUT THEY HAVE SINCE INCREASED AND ALL OTHER VITALS WNL. THE PATIENT KNOWS HOW TO USE HIS CALL LIGHT HOWEVER HE HAS CHOSEN TO YELL FOR STAFF INSTEAD OF USING THE CALL LIGHT FOR STAFF ASSISTANCE. PATIENT NO LONGER ON CONTACT ISOLATION, ALL CULTURE CLEAR. WILL CONTINUE TO MONITOR AND PROVIDE CARE NEEDED.
--- NOTE | 2019-09-21 23:34 | NUR ---
PATIENT RESTING IN BED. REFUSED VITALS BUT TOOK HIS MEDICATION. CALL LIGHT IN REACH.
--- NOTE | 2019-09-22 04:23 | NUR ---
SHIFT SUMMARY PATIENT HAD NO ACUTE CHANGES OBSERVED. AXOX 2 AND BEDFAST. IRRITABLE T/O SHIFT REFUSING VITALS. MEDICATION ADMINISTRATION COMPLETE. SMITH PATENT AND DRAINING. MEPILEX CHANGED ON LEFT BUTTOCK AND STAT LOCK REPLACED FOR SMITH. DENIES PAIN, SOB, AND N/V. NO IV ACCESS. CALL LIGHT IN REACH. BED IN LOWEST POSITION. WILL CONTINUE TO MONITOR UNTIL DAY SHIFT NURSE ASSUMES CARE.
--- NOTE | 2019-09-22 11:17 | NUR ---
PT REFUSED ASSESMENT PT SITTING CHAIR IN ROOM AFTER BREAKFAST. PT REFUSED LOVANOX AND PHYSICAL ASSESMENT WILL TRY AGIAN LATER THIS SHIFT. CALL LIGHT WITHIN REACH.
--- NOTE | 2019-09-22 17:18 | NUR ---
SHIFT SUMMARY PT STABLE, A&O TO SELF AND SITUTION. PT TILL REFUSING PHYSICAL ASSESMENT. DRESSING PLACE ON LEFT BUTTOCKS AT OLD WOUND CARE SITE. PT TOLORAED MEALS. PT HAD ONE EPISODE OF POUNDING ON WALLSAND BECOMING AGITATED WHILE IN THE [place], EASILY REDIRECTED. BED ALARM ON AND CALL LIGHT WITHIN REACH WILL COUNTINUE TO MONITOR AND REPORT TO ONCOMING SHIFT.
--- NOTE | 2019-09-23 03:04 | NUR ---
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 PT AAOX2 AND REMAINS VERY IRRITABLE AND RUDE TO STAFF. YELLING AND SWEARING AT STAFF MOST OF THE TIME. PT AGREED TO TAKE BEDTIME MEDS BUT REFUSED SOME PARTS OF PHYSICAL ASSESSMENT. VSS, WILL CONTINUE TO MONITOR.
--- NOTE | 2019-09-23 14:18 | NUR ---
Spiritual care visit conducted. Patient is sitting up in bed and alert. Patient tells me about the frustrating turn of events in his life and that the deepest frustration is that he did it to himself. Patient tells me about his family unit complications and about the deep help and hope he receives from his jamie in [facility]. Patient admits to having had suicidal thoughts but then he prays and feels hope rising up from within himself. We explore sources of meaning and purpose, talk about what his jamie tradition says about hope and luna, discuss the useful helpful ways he can continue to live and give to others, and we talk about inspirational scriptures. I listen empathically, provide pastoral assessment counselor, recite scriptures and provide prayer. Patient responds well and displays eviednce of restored jamie and renewed hope.
--- NOTE | 2019-09-23 17:36 | NUR ---
SHIFT SUMMARY PT HAD NO ACUTE CHANGES THIS SHIFT. PT WAS A&O X2. PT WAS AGITATED EARLY IN THE SHIFT AND THEN CALMED DOWN. PT MOTHER WAS HERE VISITING. PT VERBALIZED MULTIPLE TIMES ABOUT WANTING TO BE DISCHARGED. PT BED ALARM AND CALL LIGHT WITH IN REACH. WILL COUNTINUE TO MONITOR AND REPORT TO NOC RN.
--- NOTE | 2019-09-24 05:29 | NUR ---
SHIFT SUMMARY A/OX2, ABLE TO MAKE NEEDS KNOWN. IRRITABLE AND AGITATED AT TIMES WITH CARES; COMPLIES WITH CARE WITH EXPLAINATION. CALLS OUT FOR HELP. RESPIRATORY IN TO VISIT WITH PATIENT THIS AM AN NOTED O2 LOW; PLACED ON 3L @ 0440. UPON RE-ASSESSMENT FROM THIS RN; PT 97% ON 3L; TURNED DOWN TO 2L. CONTINUES TO HAVE VERY COARSE RESPIRATIONS WITH PHLEGM IN THROAT; ENCOURAGED TCDB TO THE BEST OF HIS ABILITY. NO ACUTE CHANGES NOTED OVERNIGHT. VSS/AFEBRILE. SMITH PATENT AND SECURED. BED IN LOWEST POSITION; ALARM ON. CALL LIGHT AND BELONGINGS WITHIN REACH. WCTM.
--- NOTE | 2019-09-24 16:32 | NUR ---
SHIFT SUMMARY PATIENT HAS HAD NO ACUTE ISSUES TODAY. HE IS UP IN HIS CHAIR FOR DINNER. NEW MEPILEX PLACED ON COCCYX.
--- NOTE | 2019-09-24 19:14 | NUR ---
INTERATION 1909 PATIENT VERY IRRITATED UPON FIRST INTERATION THIS NIGHT. STATED TO HURRY UP AND GET OUT OF MY ROOM. STATED DOESNT WANT TO COOPERATE SO THAT HE CAN BE SENT HOME.
--- NOTE | 2019-09-25 04:31 | NUR ---
SHIFT SUMMARY A/O, ABLE TO MAKE NEEDS KNOWN. AT BEGINNING OF SHIFT; NOTABLE IRRITABLE AND DEFIANT BEHAVIOR EXHIBITED. HOWEVER, THROUGHOUT SHIFT PATIENT HAS BECOME MORE COMPLIANT. APPEARED TO REST MUCH OF SHIFT. NO ACUTE CHANGES NOTED OVERNIGHT. VSS/AFEBRILE. DRESSING TO L BUTTOCK CHANGED X2; MINIMAL DRAINAGE EACH TIME. SMITH CATHETER BAG CHANGED; PATENT AND DRAINING. BED IN LOWEST POSITION; ALARM ON. CALL LIGHT AND BELONGINGS WITHIN REACH. WCTM.
--- NOTE | 2019-09-25 18:28 | NUR ---
SHIFT SUMMARY: NO ACUTE CHANGES TO REPORT THIS SHIFT. PT HX DEPRESSION, ANXIETY; CALM AND COOPERATIVE THIS SHIFT. CHRONIC SMITH IN PLACE FOR NEUROGENIC BLADDER; PATENT & DRAINING. PARAPLEGIA @ T-4; LIFT PATIENT. AWAITING PLACEMENT. WCTM.
--- NOTE | 2019-09-26 03:55 | NUR ---
SHIFT SUMMARY: PT'S LS WERE COARSE IN THE UPPER LOBES AND DIMINISHED IN THE LOWER LOBES. PT HAS BEEN PLEASANT AND COOPERATIVE WITH NO PROBLEMS NOTED. PT WANTED TO GO TO SLEEP EARLY AND APPEARED TO BE ASLEEP BY 2100. HE CALLED FOR ASSISTANCE A COUPLE OF TIMES. NO OTHER PROBLEMS.
--- NOTE | 2019-09-26 19:16 | NUR ---
SHIFT SUMMARY: NO ACUTE CHANGES TO REPORT THIS SHIFT. PT A&O; HX ANXIETY, DEPRESSION; LABILE; COOPERATIVE WITH MOST CARE. PARAPLEGIC @ T-4; PT ON BEDREST. CHRONIC SMITH IN FOR RETENTION; PATENT AND DRAINING. MEDICALLY STABLE; AWAITING PLACEMENT.
--- NOTE | 2019-09-26 21:15 | NUR ---
Patient refusal: Patient refused this INTEGRATION PROJECT MANAGER to toilet him, reposition, and take vitals because this INTEGRATION PROJECT MANAGER is a male. Acting charge nurse of this time was notified that this patient is requesting female only caregivers.
--- NOTE | 2019-09-27 03:49 | NUR ---
SHIFT SUMMARY ADMITTED FOR ARF. LIMITED CODE. AWAITING PLACEMENT. T4 PARAPLEGIA. NO IV ACCESS. PRESSURE ULCER ON LEFT BUTTOCK. MEDS TAKEN WHOLE W/WATER. NYSTATIN AVAILABLE FOR GROIN RASH. RA. REGULAR DIET. CHRONIC SMITH IN PLACE FOR NEUROGENIC BLADDER. REFUSED VITAL SIGNS THROUGHOUT SHIFT. ACCEPTED ORAL MEDS.
--- NOTE | 2019-09-27 17:30 | NUR ---
SHIFT SUMMARY- PT IS COOPERATIVE. PT WAS USING HIS CALL LIGHT FREQUENTLY THIS SHIFT. PT EATING AND DRINKING WELL. UIRNARY CATHATER IS PATIENT AND DRAINING. PT HAD A BM THIS MORNING. HE TOOK A NAP THIS AFTERNOON.
--- NOTE | 2019-09-28 04:06 | NUR ---
SHIFT SUMMARY ADMITTED FOR ARF. LIMITED CODE-MEDS OK, NO CPR, NO INTUBATION. CARE MANAGEMENT SEEKING PLACEMENT. PT REFUSED VITAL SIGNS AT BEGINNING OF SHIFT. CHRONIC SMITH IN PLACE FOR NEUROGENIC BLADDER. T4 PARAPLEGIC. LIFT PT. MEPILEX IN PLACE, ULCER ON LEFT BUTTOCK. REGULAR DIET. MEDS WHOLE W/WATER. DENIES PAIN. RA. LABILE MOODS. NO IV ACCESS. NYSTATIN POWDER AVAILABLE FOR GROIN RASH.
--- NOTE | 2019-09-28 16:59 | NUR ---
SHIFT SUMMARY- PT ALERT AND PLESANT. PT DECLINED A BED BATH TODAY BUT DID REQUEST HOT WASHCLOTH AND USED IT ON HIS HANDS AND FACE. PT HAS CHRONIC SMITH WHICH IS PATIENT AND DRAINING. PT REQUESTED TO GET DRESSED TODAY. HE CONTINUES TO HAVE SOME INTERMITENT CONFUSION. PT SLEPT THIS AFTERNOON AND WAS COOPERATIVE FOR THE DURATION OF THIS SHIFT.
--- NOTE | 2019-09-29 04:11 | NUR ---
SHIFT SUMMARY- PT. ANGRY AND IRRITATED AT THE BEGINNING OF THE SHIFT, STATED DID NOT WANT TO BE DISTRUBED WHEN SLEEPING. THIS NURSE DISCUSSED WITH PT. WOULD NEED TO CHECK BRIEF AND TURN Q2. PT. VERBALZIED UNDERSTANDING. PT. APPEARED TO HAVE SLEPT COMFORTABLY DURING THE NIGHT, NO APPARENT DISTRESS NOTED. NEW MEPILEX DSG APPLIED TO THE LT BUTTOCKS, PT. TOLERATED WELL. NOTED SEROSANGUINEOUS DRAINAGE ON THE PREVIOUS DSG. PT. REPOSITIONED FOR COMFORT. DENIED ANY PAIN OR DISCOMFORT. PT. AWAITING PLACEMENT. CALL LIGHT WITHIN REACH AND SIDE RAILS UP X2. WILL CONT TO MONITOR.
--- NOTE | 2019-09-29 14:33 | NUR ---
Patient is immediately tells me that he may have a place opening up for him to live. He tells me more stories of his recovery process and the physical, mental, emotional and spiritual steps that he had to take to even have the strength to stay in the recovery process. He is very thankful for those who have helped him along the way and continue to help him now. Patient seems comforted by telling of his victories and telling of what is good up ahead. I listen empathically and provide companionship and prayer. Patient responds well and shows signs of an elevated mood. I will continue to remain available to patient and family.
--- NOTE | 2019-09-29 17:31 | NUR ---
SHIFT SUMMARY L BUTTOCKS DRESSING CHANGED & PICS TAKEN. PT HAD 2 BMS THIS SHIFT. PT INTERMITTEN IRRITABLE AND RUDE TO STAFF. PT REDIRECTED AND CALMS DOWN QUICKLY. NO OTHER CHANGES IN ASSESSMENT AT THIS TIME. VSS. WILL CONTINUE TO MONITOR UNTIL TURNOVER IS COMPLETE.
--- NOTE | 2019-09-30 04:58 | NUR ---
SHIFT SUMMARY- PT. ASLEEP T/O THE SHIFT, NO APPARENT DISTRESS NOTED. DENIED ANY NEEDS DURING THE NIGHT. NO ACUTE CHANGES TO CONDITION. CALL LIGHT WITHIN REACH AND SIDE RAILS UP X2. WILL CONT TO MONITOR.
--- NOTE | 2019-09-30 13:21 | NUR ---
Patient is very discouraged today! He immediately shares with me about his frustration of not being able to placed where he wanted and not being able to do the things he wants to do. Patient also feels rejected because he is "not wanted." I helped patient reframe some of his thoughts in a more positve light, I also leaned into patient's mormon traditions to remind him of who he is and what the possibilities are inspite of the recent news. We also talk about the importance of movement and pushing farther and doing more than is expected. I highlight all that patient has overcome and encourage him that the same strength that has brought him this far will take him to the next places, new relationships and greater contentment. I normaize patient's experience and provide companionship, pastoral mortgage loan counselor and prayer. Patient responds well and states that he is now ready to take on the day and voices appreciation for visit.
--- NOTE | 2019-09-30 16:39 | NUR ---
SHIFT SUMMARY PT HAD BEDBATH THIS SHIFT. PT HAS BEEN VERY FRIENDLY & COOPERATIVE THIS SHIFT. NO CHANGES IN ASSESSMENT AT THIS TIME. VSS. DC PLANNING WORKING ON PLACEMENT. WILL CONTINUE TO MONITOR UNTIL TURNOVER IS COMPLETE.
--- NOTE | 2019-10-01 04:38 | NUR ---
SHIFT SUMMARY- PT. IRRITABLE THIS SHIFT, BUT OVERALL SLEPT WELL DURING THE NIGHT. NO APPARENT DISTRESS NOTED. DENIED ANY C/O PAIN OR DISCOMFORT. DSG CHANGE DONE TO THE LT BUTTOCKS, TOLERATED WELL. PT. STATES WOULD LIKE TO IN SUPINE POSITION. NO ACUTE CHANGES TO CONDITION. CALL LIGHT WITHIN REACH AND SIDE RAILS UP X2. WILL CONTT TO MONITOR.
--- NOTE | 2019-10-01 09:04 | NUR ---
PT IRRITABLE THIS AM, PT CUSSING AT STAFF AND REFUSING VS AND ASSESSMENTS. PT DID AGREE TO TAKE MEDICATIONS AND DID DECIDE TO EAT BREAKFAST. PT REPORTS HE IS JUST TIRED OF BEING HERE.
--- NOTE | 2019-10-01 14:35 | NUR ---
Spiritual care visit conducted. Patient is in better spirits today and tells me that his mother, Helene, is looking at a potential place to move to this day. Patient says that he is thankful for the care he has received but is ready to move on to something new. Patient states that he is appreciates the encouragement and prayer he has received from this publicity writer. I again provide prayer and companionship. I will continue to remain available to patient and family.
--- NOTE | 2019-10-01 16:31 | NUR ---
SHIFT SUMMARY- PT VERY IRRITABLE THIS AM AND REFUSING VS AND ASSESSMENTS. PT DID AGREE TO TAKE MEDICATIONS AND BECAME MUCH MORE PLEASANT AND COOPERATIVE THE DAY WENT ON. PT DENIES ANY COMPLAINTS. PT REMAINS ON RA. CHRONIC INDWELLING SMITH DRAINING CLOUDY YELLOW URINE. PARAPLEGIC. 2+ BLE EDEMA. DRESSING TO BUTTOCK C/D/I. PT CURRENTLY AWAITING PLACEMENT. NO OTHER ACUTE CHANGES THIS SHIFT.
--- NOTE | 2019-10-01 19:30 | NUR ---
RADHA IS LAYING IN BED, LIGHTS ARE OFF. HE HAS NOT YET FALLEN ASLEEP HE STATES. HE IS IN A GOOD MOOD, JOKING AROUND AND LAUGHING. WE TALKED ABOUT HIS MOM AND FAMILY. HE STATES HE HAS ONLY BEEN IN THE HOSPITAL FOR THREE DAYS, "THAT DARN VIRUS GOT ME AGAIN" HE STATED. HE DENIED ANY PAIN OR DISCOMFORT. STATES HE IS FEELING ALOT BETTER. CALL LIGHT IN REACH. ASSESSMENT COMPLETED. WILL CONTINUE TO MONITOR.
--- NOTE | 2019-10-01 23:52 | NUR ---
RADHA IS SLEEPING COMFORTABLY. CATHETER PATENT AND DRAINING. NO SIGNS OF DISTRESS NOTED. CALL LIGHT IN REACH.
--- NOTE | 2019-10-02 05:29 | NUR ---
SHIFT SUMMARY: RADHA WAS COOPERATIVE THIS SHIFT. TOOK HIS MEDS WITH NO PROBLEMS. WENT TO BED EARLY AND SLEPT WELL THROUGHOUT THE NIGHT. NO APPARENT DISTRESS NOTED. DENIED ANY PAIN OR DISCOMFORT. DSG TO BUTTOCKS REMAINED CDI. CATHETER REMAINED PATENT AND DRAINING CLOUDY YELLOW URINE. CALL LIGHT REMAINED IN REACH AND SIDE RAILS UP X2. NO OTHER CHANGES TO REPORT THIS SHIFT.
--- NOTE | 2019-10-02 15:54 | NUR ---
HE IS WATCHING TV NOW AFTER A LENGTHY PHONE CALL WITH A FRIEND. HE HAS NO COMPLAINTS. HE WOKE UP ANGRY THIS MORNING BUT GOT HIMSELF INTO A BETTER MOOD PRETTY QUICKLY. NO COMPLAINTS. EATS WELL. HIS MOTHER VISITED FOR A COUPLE OF HRS. HE HAD AN EPISODE AT ONE POINT THIS MORNING WHERE HE INSISTED TO GET UP AND WALK. I HAD TO REMIND HIM HE CANNOT WALK D/T PARALYSIS. AFTER A MINUTE OF REFUSAL TO THE IDEA, HE ACCEPTED IT AND WAS PLEASANT AND COOPERATIVE. HEEL PROTECTORS PUT ON BILATERALLY FOR 2 ROUND PINK CIRCLES ON HIS HEELS. FOAM DRESSING ON BOTTOM.
--- NOTE | 2019-10-02 20:00 | NUR ---
RADHA LAYING DOWN IN HIS BED, ALREADY TRYING TO SLEEP. DENIED ANY CHANGES THAT OCCURED TODAY. STATED HIS MOTHER CAME BY TO SEE HIM TODAY, HE WAS GLAD TO SEE HER. ORANGE JUICE GIVEN, CALL LIGHT IN REACH. WILL CONTINUE TO MONITOR.
--- NOTE | 2019-10-02 22:38 | NUR ---
RADHA WAS CALLING OUT, STATES SOMEONE WAS IN HIS GARAGE. REORIENT HIM TO THE HOSITAL AND THE ROOM. INFORMED HIM THE NOISE HE IS HEARING IS THE TUBE SYSTEM RUNNING IN THE CEILING. HE SAID OK BUT IT ANNOYS HIM. ENCOURAGE HIM TO IGNORE IT AND TRY TO SLEEP. HE SAID HE WILL TRY. TOOK OFF HIS SWEAT PANTS PER HIS REQUEST. CATHETER IS PATENT AND DRAINING WELL. CALL LIGHT IN REACH.
--- NOTE | 2019-10-03 00:30 | NUR ---
RADHA WOKE UP CALLING FOR HELP. WALKED IN ROOM AND HE ASKED FOR HELP IN THE SHOWER. SAID HE NEEDS TO GET ALL THIS SOAP OFF OF HIM. HE NEEDS TO GET IN THE SHOWER. INFORMED HIM HE WAS IN THE HOSPITAL IN THE HOSPITAL BED. SHE CONTINUED TO SAY HE NEEDED TO GET THE SOAP OFF. BUT WAS LISTENING TO ME ABOUT HIM BEING IN THE HOSPITAL. SO I TURNED ON THE LIGHT AND HAD HIM LOOK. HE LOOKED DOWN AND SAID "WELL LOOK AT THAT, I AM IN THE HOSPITAL." HE LAUGHED AND ASKED FOR SOME ORANGE JUICE. THEN LAID BACK DOWN.
--- NOTE | 2019-10-03 05:17 | NUR ---
SHIFT SUMMARY: RADHA HAD AN UNEVENTFUL NIGHT. ONLY WOKE UP ONCE WITH CONFUSION THINKING HE WAS STANDING IN THE SHOWER. REORIENTED HIM, AND HE WENT BACK TO SLEEP. HE DID NOT COMPLAIN OF ANYTHING AND ONLY ASKED FOR ORANGE JUICE X2. OTHER THEN THAT HE SLEPT THROUGH THE NIGHT. CALL LIGHT REMAINED IN REACH.
--- NOTE | 2019-10-03 12:51 | NUR ---
Spiritual care visit conducted. Patient is lying in the dark and alert. Patient says that he is having a really down day and does not want a visit. I ask patient what is going on with him today and he explains that he just wants to have the day over so he can get out of the hospital. I ask if I can at least pray for him and he affirms that this would be okay. I gladly provide prayer and patient thanks me for it. He also thanks me for being understanding about not wanting to visit this day.
--- NOTE | 2019-10-03 15:30 | NUR ---
HE HAS HAD NO COMPLAINTS. HE HAS BEEN EATING EXTRA PORTIONS TODAY. LUIS PATENT. NO BM. HE CONTINUES TO REFUSE HIS MIRALAX. HEEL PROTECTORS ON.
--- NOTE | 2019-10-03 16:46 | NUR ---
NO CHANGES TODAY. FOAM DRESSING CD&I ON BOTTOM. NO BM TODAY. WATCHES TV. SLEEPS. HIS MOM DID NOT VISIT TODAY. I HAVEN'T NOTICED HIM ON THE PHONE YET TODAY. VSS.
--- NOTE | 2019-10-03 20:00 | NUR ---
RADHA IS ALITTLE GRUMPY TONIGHT. STATES HE HAD A GOOD DAY DOES NOT KNOW WHY HE IS GRUMPY ONLY THAT HE WANTS TO SLEEP. TOLD HIM HE WILL SLEEP AFTER I GET HIS MEDS AND GIVEN THEM TO HIM. HE AGREED TO THAT. DENIED ANY NEEDS AT THIS TIME. CATHETER STILL PATENT AND DRAINING, LAST CHANGE WAS 09/11. WILL NEED TO BE CHANGED BEFORE HE IS DISCHARGED. CALL LIGHT IN REACH, WILL CONTINUE TO MONITOR.
--- NOTE | 2019-10-04 01:12 | NUR ---
RADHA WOKE UP YELLING FOR HELP HE WAS SITTING STRAIGHT UP IN BED LEANING TO THE LEFT TRYING TO REACH HIS CATHETER HOSE. HE SAID HE HAD TO MAKE SURE IT WAS EMPTIED. INFORMED HIM IT WAS DRAINING JUST FINE. SHOWED HIM THE BAG. THEN REPOSITIONED HIM AND LAID HIM BACK DOWN. CALL LIGHT STILL IN REACH.
--- NOTE | 2019-10-04 05:34 | NUR ---
SHIFT SUMMARY: RADHA SLEPT THROUGH THE NIGHT WITH NO ACUTE CHANGES. VS REMAINED STABLE, CATHETER REMAINED PATENT WITH YELLOW CLOUDY URINE, CATHETER IS DUE FOR CHANGE ON 10/12/19 OR BEFORE DISCHARGE. DRESSING TO BUTTOCKS REMAINED CDI. BLISTER TO LEFT THIGH STILL INTACT WITH CLEAR FLUID. ATTENDS REMAINED DRY, RASH IN GROIN IS RESOLVED. CALL LIGHT REMAINED IN REACH.
--- NOTE | 2019-10-04 17:57 | NUR ---
SHIFT SUMMARY: NO ACUTE CHANGES TO REPORT THIS SHIFT. PT A&O; OCC IRRITABILITY; COOPERATIVE WITH CARE. NO C/O PAIN OR NAUSEA THIS SHIFT. CHRONIC INDWELLING CATHERTER R/T NEUROGENIC BLADDER; PATENT AND DRAINING. MEDICALLY STABLE; AWAITING PLACEMENT. WCTM.
--- NOTE | 2019-10-05 06:08 | NUR ---
10/05/19 0535 AWAKENED FOR VITALS AND TURNING BUT REFUSED. STATES HE JUST WANTS TO SLEEP A LITTLE LONGER. VITALS HAVE BEEN STABLE. RN ALLOWED PT TO SLEEP LONGER.
--- NOTE | 2019-10-05 19:07 | NUR ---
SHIFT SUMMARY: NO ACUTE CHANGES TO REPORT THIS SHIFT. PT ALERT; OCC CONFUSION; LABILE; COOPERATIVE WITH MOST CARE. CHRONIC SMITH IN PLACE FOR NEUROGENIC BLADDER; PATENT AND DRAINING. LIFT PATIENT; UP TO CHAIR FOR SEVERAL HOURS THIS SHIFT; PATIENT TOLERATED WELL. EXPECTED D/C TO [facility] 10/07. REPORT GIVEN TO ONCOMING RN.
--- NOTE | 2019-10-06 04:24 | NUR ---
10/06/19 0430 PT SLEEPS WELL DURING THE NIGHT. HE DOES BECOME VERY IRRITABLE WHEN AWAKENED FOR NURSING CARE.HE DECLINED TURNING EARLIER AND STATES HE CAN TURN HIMSELF WHEN NEEDED. UNEVENTFUL NIGHT.
--- NOTE | 2019-10-06 14:54 | NUR ---
Patient is sitting up in bed and alert. Patient tells me he is having a good day today. Patient explains that he maybe discharged tomorrow and that even if the housing isn't great at least he will be out of the hospital room that he has been in for nearly 2 months. Patient is laughing and joking around. He tells me funny stories about [employer] and [employer] games. I listen empathically, provide scripture recitation and prayer. Patient responds well and shows signs of an elevated mood. I will continue to remain available to patient and family.
--- NOTE | 2019-10-06 16:25 | NUR ---
SHIFT SUMMARY PT IS A/O X 2-3 AT BASELINE AND DENIES PAIN. SMITH REMAINS PATENT WITH YELLOW URINE OUTPUT. DRESSING TO LEFT BUTTOCK CHANGED AND THE WOUND IS HEALING WELL, SURROUNDING SKIN IS BLANCHABLE. PT HAS BEEN PLEASANT AND COOPERATIVE WITH HIS CARE. HE CONTINUES TO WAIT FOR PLACEMENT AND ACCORDING TO HIS MOM AND CARE MANAGEMENT THE PLAN IS FOR HIM TO DC TO [facility] TOMORROW. PT'S MOM AND HER "FRIEND" CAME TO THE NURSE STATION TODAY AND EXPRESSED SOME CONCERNS ABOUT MAKING SURE THERE WAS A BED AVAILABLE AT THE RECEIVING FACILITY AND THAT HIS MED LIST WOULD BE SENT OVER TO THEM WELL HIS PERSONAL BELONGINGS. SHE ALSO ASKED THAT HE BE DCD IN THE AFTERNOON SO THAT HIS BED COULD BE TRANSFERRED FROM HER PERSONAL HOME TO THE CUSTODIAL. THIS NURSE ASSURED THEM THAT ALL OF THESE THINGS WOULD BE PUT IN PLACE BEFORE THE PT WAS DCD. THIS NURSE ALSO SPOKE WITH DATAPOWER DEVELOPER KEMI, WHO STATED SHE WOULD MAKE SURE EVERYTHING WAS SET UP BEFORE HE DCD FROM THE HOSPITAL. THIS NURSE CALLED THE MOM BACK TO LET HER KNOW THAT THE MESSAGE HAD BEEN RELAYED TO THE AMPOULE FILLER AND SHE WAS THANKFUL. THE PT IS RESTING IN BED. HE IS ABLE TO MAKE HIS NEEDS KNOWN.
--- NOTE | 2019-10-06 23:14 | NUR ---
10/06/19 2310 YELLING OUT FOR NURSE. ASKED RN IF SHE COULD DRIVE HIM TO [facility] IN AM. STATES HE WILL BE DISCHARGED TOMORROW AND WANTING A RIDE. INFORMED HIM THAT STAFF DO NOT TRANSPORT PTS. INFORMED HIM NOT TO WORRY TONIGHT IT WILL BE ORGANIZED BY DISCHARGE PLANNERS. HE STATES,"OKAY." BED ALARM ON.
--- NOTE | 2019-10-07 04:47 | NUR ---
10/07/19 0445 SLEEPING WELL. HAS BEEN MORE CONFUSED THIS SHIFT THAN PREVIOUS 2 NIGHTS OTHERWISE AN UNEVENTFUL NIGHT.
--- NOTE | 2019-10-07 07:31 | NUR ---
PATIENT REFUSED TO HAVE BLOOD PRESSURE TAKEN THIS MORNING. WHILE MACHINE WAS TAKING HIS BLOOD PRESSURE, HE SCREAMED AT ME AND RIPPED HIS CUFF OFF AND THREW IT ACROSS THE ROOM. RN WAS NOTIFIED.
[2019-10-07] MEDS ORDERED: REFRESH CELLUV1 EACH BOTHEYES (10:18)
[2019-10-07] MEDS ORDERED: Seroquel Xr50 MG PO (10:18)
[2019-10-07] MEDS ORDERED: Pedi-Dri 100,0060 GM TOP (10:19)
[2019-10-07] MEDS ORDERED: QUET100 PO (10:20)
--- NOTE | 2019-10-07 10:43 | NUR ---
Spiritaul care visit condicted. Patient is lying in bed in the dark and alert. Patient tells me that he is angry. He explains that he is being transferred to a facility that is like the hospital and he is furious about it. He states that he wants to get back to normal life and this is not it. He states that he does not want to visit and that he does not want prayer. I listen empathically and provide companionship. I will continue to remain available to patient and family.
--- NOTE | 2019-10-07 12:28 | NUR ---
PT WAS DCD TO [facility] WITH HOME HEALTH. CARE MANAGEMENT FAXED ORDERS AND REVIEWED DC INSTRUCTIONS WITH THE RECEIVING NURSE. FOLLOW UP WAS SCHEDULED WITH PCP AND THE OFFICE STATED THAT THEY WOULD CALL THE PT'S MOM WITH THE DATE AND TIME. ALL PERSONAL BELONGINGS SENT WITH PT. DC PCKET SENT WITH HOUSE FATHER. PT WAS UNABLE TO SIGN DC PACKET. PT STABLE UPON DC. AND RECEIVING FACILITY IS AWAITING HIS ARRIVAL.
== END 2019-10-07 12:25 | disposition home or self-care (01) | DRG 698 ==
LOC: ER 15:25 → MEDS 20:23 → ENPENDDIS 10-07 10:08 → MEDS 10-07 12:25
PROVIDERS: Family Medicine; Internal Medicine; Physician Assistant; ADMIT Hospitalist
DX: T83.511A Infection and inflammatory reaction due to indwelling urethral catheter, initial encounter (principal); L89.324 Pressure ulcer of left buttock, stage 4; R65.21 Severe sepsis with septic shock; A41.51 Sepsis due to Escherichia coli [E. coli]; A41.52 Sepsis due to Pseudomonas; A41.81 Sepsis due to Enterococcus; J18.9 Pneumonia, unspecified organism; N17.9 Acute kidney failure, unspecified; N13.6 Pyonephrosis; G82.20 Paraplegia, unspecified; E87.1 Hypo-osmolality and hyponatremia; J44.9 Chronic obstructive pulmonary disease, unspecified; F41.8 Other specified anxiety disorders; D64.9 Anemia, unspecified; I95.9 Hypotension, unspecified; N13.9 Obstructive and reflux uropathy, unspecified; S24.102S Unspecified injury at T2-T6 level of thoracic spinal cord, sequela; E87.5 Hyperkalemia; B96.5 Pseudomonas (aeruginosa) (mallei) (pseudomallei) as the cause of diseases classified elsewhere
CPT/HCPCS: 0099U; 36415; 51702; 71045; 71046; 76770; 80047; 80048; 80053; 80069; 81001; 82947; 83605; 85014; 85018; 85025; 87040; 87077; 87081; 87086; 87186; 94640; 94760; 96361; 96365; 99285-25; A9270; A9270-GY; J0713; J1644; J1650; J2543; J3370; J7030; J7050

== ENCOUNTER 2019-10-30 20:28 | Observation (INO) | payer OTHER ==
[~2019-10-30] VITALS: Ht 182.9 cm; Wt 95.2 kg
[~2019-10-30 20:28] MED LIST changes: +K-Dur 20 meq T20 MEQ PO; +NITR100CA PO; +REFRESH CELLUV1 EACH BOTHEYES; +Seroquel Xr50 MG PO
[2019-10-30 22:35] LABS: Source, Urine Clean Catch
[2019-10-30 22:38] LABS: Bilirubin, Urine Neg (Neg); Blood, Urine 4+ (Neg); Glucose Qualitative, Urine Neg (Neg); Ketones, Urine Neg (Neg); Leukocyte Esterase, Urine 3+ (Neg); Nitrite, Urine Pos (Neg); Protein, Urine 4+ (Neg); Urobilinogen, Urine NORM (Normal)
[2019-10-30 22:55] LABS: Appearance, Urine Turbid (Clear); Color, Urine Yellow (P-Yellow); Red Blood Cells, Urine Rare /hpf (0-2)
[2019-10-30 22:56] LABS: Amorphous Heavy (0-Heavy); Bacteria Many /hpf; Mucus Heavy (0-Heavy); Squamous Epithelial Cells Not Seen /hpf (Few)
[2019-10-30 23:03] LABS: BASOPHILS ABSOLUTE AUTO 0.01 K/mm3 (0.00-0.23); BASOPHILS PERCENT AUTO 0 % (0-2); EOSINOPHILS ABSOLUTE AUTO 0.26 K/mm3 (0.00-0.68); EOSINOPHILS PERCENT AUTO 4 % (0-6); Hematocrit 47.2 % (37.0-53.0); IMMATURE GRAN ABSOLUTE AUTO 0.04 K/mm3 (0.00-0.10); IMMATURE GRAN PERCENT AUTO 1 % (0-1); LYMPHOCYTES ABSOLUTE AUTO 1.58 K/mm3 (0.84-5.20); LYMPHOCYTES PERCENT AUTO 22 % (21-46); MONOCYTES ABSOLUTE AUTO 0.82 K/mm3 (0.16-1.47); MONOCYTES PERCENT AUTO 11 % (4-13); Mean Corpuscular HGB 26.4 pg (26.0-34.0); Mean Corpuscular HGB Conc 31.8 g/dL (31.5-36.5); Mean Corpuscular Volume 83 fL (80-100); NEUTROPHILS ABSOLUTE AUTO 4.54 K/mm3 (1.96-9.15); NEUTROPHILS PERCENT AUTO 63 % (41-73); Platelet Count 196 K/mm3 (150-400); RDW Coefficient Variation 15.4 % (11.7-14.2); RDW Standard Deviation 46.9 fL (35.1-46.3); Red Blood Cell Count 5.68 M/mm3 (4.30-5.90); White Blood Cell Count 7.25 K/mm3 (4.00-11.30)
[2019-10-30 23:24] LABS: Alanine Aminotransfer (ALT/SGP 32 U/L (12-78); Albumin, Blood 3.2 g/dL (3.4-5.0); Albumin/Globulin Ratio 0.7 (0.8-1.8); Alk Phos 135 U/L (50-136); Anion Gap 6 mmol/L (6-16); Aspartate Aminotrans (AST/SGOT 22 U/L (12-37); Bilirubin, Total 0.3 mg/dL (0.1-1.0); Blood Urea Nitrogen 16 mg/dL (8-24); Bun/Creatinine Ratio 15.8 (12.0-20.0); CO2, Blood 25 mmol/L (21-32); Chloride, Blood 111 mmol/L (98-108); Creatinine, Blood 1.01 mg/dL (0.60-1.20); Globulin, Blood 4.7 g/dL (2.2-4.0); Glomerular Filtration Rate >60 (60-); Glucose, Blood 85 mg/dL (70-99); Sodium, Blood 142 mmol/L (136-145); Total Protein, Blood 7.9 g/dL (6.4-8.2)
--- NOTE | 2019-10-31 02:13 | NUR ---
ADMISSION: PATIENT IS RECIEVED FROM ER VIA STRETCHER, A&O TO SELF AND PLACE DISORIENTED TO TIME, "I DON'T KEEP TRACK OF THAT". NO COMPLIANTS OF PAIN. A HEALING WOUND ON THE LEFT BUTTOCKS HAD A DRESSING WITH SEROSANQUINES DRAINAGE OBSERVED. PATIENT IS PLACED ON CONTACT ISOLATION AND MRSA PROTOCOLS ARE INITIATED. VS ARE STABLE AT THIS TIME
--- NOTE | 2019-10-31 06:05 | NUR ---
SHIFT SUMMARY: PATIENT IS A&OX3, DOES NOT KNOW DATE. NO COMPLIANTS OF PAIN OR DISCOMFORT. JOSIE MOHAN, EMPLOYMENT CLERK CALLED TO NOTIFY THAT THE PATIENT IS CLEARED OF MRSA IN THE WOUND, MRSA CLEARING PROTOCOL AND ISOLATION ARE CANCELED. SMITH IS PATENT FOR A CLOUDY, THICK, YELLOW WITH A PINK TINGE URINE. WOUND ON LEFT BUTTOCKS IS CLEANSED AND DSD IS APPLIED.
--- NOTE | 2019-10-31 15:58 | NUR ---
SHIFT SUMMARY PT IS ALERT AND ORIENTED TO HIMSELF, FAMILY AND SITUATION AT TIMES WHICH IS HIS BASELINE. PT HAS BEEN FORGETFUL AND ASKING TO LEAVE AND NEEDS REMINDERS OF WHY HE IS HERE. PT REPORTS THAT HE DOES NOT LIKE HIS CURRENT LIVING ARRANGEMENTS AND THAT HE DOES NOT WANTS TO GO BACK, CARE MANAGEMENT WAS NOTIFIED AND MET WITH PT'S MOM. SMITH THAT WAS PLACED IN THE ED WAS LEAKING, DR AMAYA WAS NOTIFIED AND GAVE ORDER TO CHANGE TO A LARGER SIZE. THIS WAS COMPLETED AND THE SMITH IS NO LONGER LEAKING, HIS URINE REMAINS CLOUDY AND FLUIDS HAVE BEEN ENCOURAGED. DRESSING TO WOUND OF LEFT BUTTOCK WAS CHANGED PER ORDER AND THE WOUND APPEARS TO BE HEALING WELL. PT IS PLEASANT AND COOPERATIVE WITH HIS CARE. HE IS ABLE TO MAKE HIS NEEDS KNOWN EITHER BY CALLING OUT OR USING HIS CALL LIGHT. HE IS RESTING IN BED WATCHING TV. CALL LIGHT IS IN REACH.
--- NOTE | 2019-11-01 04:53 | NUR ---
SHIFT SUMMARY ADMITTED FOR ACUTE METABOLIC ENCEPHALOPATHY. DNR CODE. CHRONIC SMITH IN PLACE, THIS PT IS COLONIZED. PT CAME FROM [facility] (HE AND HIS FAMILY DO NOT WANT HIM TO RETURN TO THAT FACILITY). LIFT PT. SMALL PRESSURE ULCER ON BUTTOCK, TUNNELING NOTED. CARDIAC DIET, RA. HX: COPD, T4 PARAPLEGIA, NEUROGENIC BLADDER, HYPERLIPIDEMIA, UTI'S, DEPRESSION, ANEMIA, THROMBOCYTOPENIA. AWAITING PLACEMENT.
[2019-11-01 11:22] LABS: BASOPHILS ABSOLUTE AUTO 0.03 K/mm3 (0.00-0.23); BASOPHILS PERCENT AUTO 0 % (0-2); EOSINOPHILS ABSOLUTE AUTO 0.17 K/mm3 (0.00-0.68); EOSINOPHILS PERCENT AUTO 2 % (0-6); Hematocrit 46.7 % (37.0-53.0); Hemoglobin 14.6 g/dL (13.5-17.5); IMMATURE GRAN ABSOLUTE AUTO 0.05 K/mm3 (0.00-0.10); IMMATURE GRAN PERCENT AUTO 1 % (0-1); LYMPHOCYTES ABSOLUTE AUTO 1.44 K/mm3 (0.84-5.20); LYMPHOCYTES PERCENT AUTO 19 % (21-46); MONOCYTES ABSOLUTE AUTO 0.84 K/mm3 (0.16-1.47); MONOCYTES PERCENT AUTO 11 % (4-13); Mean Corpuscular HGB 26.4 pg (26.0-34.0); Mean Corpuscular HGB Conc 31.3 g/dL (31.5-36.5); Mean Corpuscular Volume 85 fL (80-100); NEUTROPHILS ABSOLUTE AUTO 4.99 K/mm3 (1.96-9.15); NEUTROPHILS PERCENT AUTO 66 % (41-73); Platelet Count 175 K/mm3 (150-400); RDW Coefficient Variation 15.5 % (11.7-14.2); RDW Standard Deviation 47.3 fL (35.1-46.3); Red Blood Cell Count 5.52 M/mm3 (4.30-5.90); White Blood Cell Count 7.52 K/mm3 (4.00-11.30)
[2019-11-01 11:43] LABS: Anion Gap 6 mmol/L (6-16); Blood Urea Nitrogen 15 mg/dL (8-24); CO2, Blood 21 mmol/L (21-32); Calcium, Blood 8.5 mg/dL (8.5-10.1); Chloride, Blood 109 mmol/L (98-108); Creatinine, Blood 0.88 mg/dL (0.60-1.20); Glomerular Filtration Rate >60 (60-); Glucose, Blood 79 mg/dL (70-99); Potassium, Blood 4.9 mmol/L (3.5-5.5); Sodium, Blood 136 mmol/L (136-145)
--- NOTE | 2019-11-01 18:08 | NUR ---
SHIFT SUMMARY. A&OX3, PERIODS OF AGITATION ALTHOUGH PT WAS MOSTLY PLEASANT AND COOPERATIVE. PT WITH PERIODS OF CONFUSION, EASILY REORIENTATED. PT REPORTS HE WAS SEEING BUGS CRAWLING ON THE FLOWERS INTERMITTENTLY THIS SHIFT, NO DISTRESS OBSERVED, PT EASILY REASSURED. PT DENIES SOB, N/V, AND PAIN. POOR PO INTAKE. CHRONIC SMITH CATHETER PATENT. MOTHER IN TO VISIT THIS AFTERNOON. POOR MEAL INTAKE. NO NEW CHANGES OR CONCERNS.
--- NOTE | 2019-11-02 04:35 | NUR ---
SHIFT SUMMARY ADMITTED FOR ACUTE METABOLIC ENCEPHALOPATHY. CHRONIC SMITH IN PLACE: PT IS COLONIZED. DNR CODE. CARDIAC DIET, RA, LIFT PT (T4 PARAPLEGIC), LABILE MOODS, PRESSURE ULCER ON BUTTOCK. RECENT PLACEMENT @ FACILITY: PT AND FAMILY WISH NOT TO RETURN TO THAT FACILITY. AWAITING NEW PLACEMENT. PT HAD A MUCH BETTER NIGHT WITH NOTICEABLY LESS AGITATION NOW THAT HIS HOME MEDICATIONS WERE RE-ADDED TO THE EMAR. HX: COPD, TBI, NEUROGENIC BLADDER, HYPERLIPIDEMIA, UTI'S, DEPRESSION, ANEMIA, THROMBOCYTOPENIA. NO IV ACCESS.
--- NOTE | 2019-11-02 17:14 | NUR ---
SHIFT SUMMARY. A&OX2-3, INTERMITTENT AGITATION AND CONFUSION, PT APPEARS TO HAVE REDUCED AGITATION AFTER SPEAKING WITH MOTHER ON PHONE. PT DENIES PAIN, SOB, N/V. PT RESISTANT TO CARE AT TIMES. PT REFUSED BED BATH. PT UP TO CHAIR VIA LIFT FOR DINNER AT THIS TIME. NO NEW CHANGES OR CONCERNS.
--- NOTE | 2019-11-03 05:11 | NUR ---
PRECISION HONING MACHINE OPERATOR SUMMARY NO ACUTE CHANGES THIS SHIFT. PT AAOX3 AND HAS BEEN FAIRLY PLEASANT THROUGH THE NIGHT. PT HAD LARGE BM TONIGHT WHICH HE SAID WAS HIS FIRST IN A FEW DAYS. DENIES PAIN, SOB, N/V. HAS SLEPT THROUGH THE NIGHT. VSS, WILL CONTINUE TO MONITOR.
--- NOTE | 2019-11-03 15:45 | NUR ---
Patient is sitting up in bed and alert. Patient is confused as to why he was brought to the hospital or why he is in the hospital today. He does tell me that there have been times in the past that he has been hopeless and wanted to give up because of how his life has been but then he thinks about how blessed he is with family and resources. We talk about sources of meaning and purpose and explore sources of dignity. I listen empathically, reinforce helpful attitudes and practices, hear confession and provide companionship and prayer. Patient responds well and shows signs of renewed hope. I will continue to remain available to patient and family.
--- NOTE | 2019-11-03 18:32 | NUR ---
SHIFT SUMMARY. A&OX2-3, INTERMITTENT CONFUSION. PT MILDLY AGITATED THIS AM, PT'S MOOD IMPROVED THIS AFTERNOON AFTER MOTHER CAME TO VISIT AND REMAINED PLEASANT AND APPRECIATIVE THROUGHOUT AFTERNOON AND EVENING. BED BATH, LINEN CHANGE AND WOUND CARE TO BUTTOCK COMPLETED. NO NEW CHANGES OR CONCERNS.
--- NOTE | 2019-11-04 05:47 | NUR ---
PRINT CONTROLLER SUMMARY NO ACUTE CHANGES THIS SHIFT. PT AAOX3 WITH SOME CONFUSION INTERMITTENTLY. DENEIS PAIN, SOB, N/V. PT HAS BEEN VERY PLEASANT TONIGHT. VSS, WILL CONTINUE TO MONITOR.
--- NOTE | 2019-11-04 15:53 | NUR ---
Patient is sitting on a chair and alert. Patient's mother and a family friend are present. We discuss placement options, patient's life prior to head injury and then after back injury and about what is covered by [employer] for patient. Patient is warm and pleasant this day. Patient shows a love and respect for his mother but all admit that patient (because of the head injury) has moments were he can be aggressive and angry. Patient remembers very little of those moments. I listen empathically and provide companionship and prayer. Patient responds well and verbalizes gratitude for the visit. I will continue to remain available to patient and family.
--- NOTE | 2019-11-04 19:22 | NUR ---
PT. UP IN CHAIR EATING HAMBURGER THAT WAS ORDERED LATE. NO NOTEABLE CHANGES THIS SHIFT. NO NOTEABLE CHANGES THIS SHIFT. WOUND DRESSING CHANGED. PT. PLEASANT AND COOPERATIVE TODAY.
--- NOTE | 2019-11-05 06:01 | NUR ---
SHIFT SUMMARY PT IS A 64 Y/O MALE, ADMITTED FOR ACUTE METABOLIC ENCEPHALOPATHY. HE IS A&O X 2 THOUGH INCREASINGLY CONFUSED DURING THE NIGHT, CALLING FOR HIS MOTHER AND PULLING AT HIS CATHETER. PT WAS EASILY REORIENTED AFTER PERIODS OF CONFUSION. PT IS A PARAPLEGIC, WHEELCHAIR BOUND AT BASELINE AND A LIFT TO THE CHAIR. NO COMPLAINTS OF ACUTE PAIN, NAUSEA OR SOB. VITAL SIGNS STABLE. COOPERATIVE WITH CARE. NO ACUTE CHANGES IN PT CONDITION NOTED DURING THE NIGHT. WILL CONTINUE TO MONITOR AND TREAT PER EMAR UNTIL HAND OFF TO DAY SHIFT RN.
--- NOTE | 2019-11-05 16:14 | NUR ---
Spiritual care visit conducted. Patient shares about things he is thankful for and hobbies he used to enjoy. Patient laughs often today. I provide companionship and prayer. Patient responds well and shows signs of an elevated mood.
--- NOTE | 2019-11-05 20:02 | NUR ---
PT. LYING IN BED. REFUESED HIS DINNER TONIGHT AND WAS IRITABLE, AGITATED AND RUDE ALL DAY. WAS DETERMINED HE WAS GOING HOME ONE WAY OR ANOTHER TODAY. NO OTHER NOTEABLE CHANGES. DENIED PAIN OR N/V.
--- NOTE | 2019-11-06 06:17 | NUR ---
SHIFT SUMMARY A/O, ABLE TO MAKE NEEDS KNOWN. NON-COMPLIANT WITH CARES; HOWEVER DID ALLOW ATTENDS CHANGE THIS AM WELL CATHETER CARE. REPLACED MEPILEX TO WOUND ON L BUTTOCK. APPEARED TO REST MUCH OF SHIFT; REPOSITIONED TOLERATED. SMITH CATHETER PATENT AND DRAINING TO GRAVITY. VSS/AFEBRILE. NO C/O PAIN/DISCOMFORT. NO ACUTE CHANGES NOTED OVERNIGHT. BED IN LOWEST POSITION; ALARM ON. CALL LIGHT AND BELONGINGS WITHIN REACH. WCTM. REPORT TO ONCOMING RN.
--- NOTE | 2019-11-06 15:16 | NUR ---
Spiritual care visit conducted. Patient told me that he was having a "down" day and was feeling lonely. Patient also told me last visit that he used to play guitar. So I brought my guitar up for him to play. I also provided inspirational therapeutic guitar and singing. Patient clearly showed signs of an elevated mood and was verbalized appreciation. I will continue to remain available to patient and family.
--- NOTE | 2019-11-06 19:36 | NUR ---
NO NOTEABLE CHANGES THIS SHIFT.
--- NOTE | 2019-11-07 05:49 | NUR ---
SHIFT SUMMARY A/O, ABLE TO MAKE NEEDS KNOWN. COOPERATIVE WITH CARES THIS SHIFT. XLARGE BM; ATTENDS/LINEN/CLOTHING CHANGE. NEW MEPILEX TO L BUTTOCKS WELL PHOTO DOCUMENTATION. SMITH CATHETER PATENT AND DRAINING TO GRAVITY. VSS/AFEBRILE. NO C/O PAIN/DISCOMFORT. NO OTHER ACUTE CHANGES NOTED OVERNIGHT. AWAITING PLACEMENT. BED IN LOWEST POSITION; ALARM ON. CALL LIGHT AND BELONGINGS WITHIN REACH. WCTM. REPORT TO ONCOMING RN.
--- NOTE | 2019-11-07 09:45 | NUR ---
PT PLEASANT AND HAPPY TO SEE ME. REMEMBERS PAST ENCOUNTERS. DENIES PAIN. IS UNABLE TO FEEL OR MOVE ABD SOUTH. H/R REG, NO MURMER NOTED. LUNGS CLEAR RESP EASY, UNLABORED. ON R.A. BTX4 LAST BM YEST. PT STATES CANNOT TELL IF WHEN HAS BM. SMITH CATH DRAINING CLOUDY YELLOW FLUID. BED IN LOW POSITION, CALL LITE IN REACH, CALLS APPROP, CALLS OUT OCCATIONALLY.
--- NOTE | 2019-11-07 13:57 | NUR ---
PT FAMILY REQUEST HOME MEDS PROZAC 20 MG BID AND ATIVAN 0.[address] GARCIA, WILL REVIEW
--- NOTE | 2019-11-07 14:25 | NUR ---
Spiritual care visit conducted. Patient shares about his fears, his frustrations and his questions about being on this planet. I listen empathically, explore sources of meaning and value, explore what his alevism tradition says about peace, jose and being loved and provide companionship and prayer. Patient responds well and shows signs of renewed purpose and luna. I will continue to remain available to patient and family.
--- NOTE | 2019-11-07 15:09 | NUR ---
CHANGED PT PROPPED ON BILAT PILLOWS TO KEEP OFF BOTTOM. PT PLEASAANT AT THIS TIME. BED IN LOW POSITION, CALL LITE IN REACH, BED ALARM ON FOR SAFETY
--- NOTE | 2019-11-07 18:27 | NUR ---
PT PLEASANT MOST OF DAY. DID HAVE AN EPISODE OF ANGER AND FRUSTRATION. IMPROVED SOON THEREAFTER. MOTHER AND FRIEND IN ROOM SOME TODAY. MED CHANGES DISCUSSED WITH NEW MEDS AVAIL PRN. NO OTHER CONCERNS AT THIS TIME. BED IN LOW POSITION, JONATHAN LITE IN REACH, USUALLY CALLS OUT FOR NEEDS.
--- NOTE | 2019-11-07 22:30 | NUR ---
BEGINNING SHIFT SUMMARY ASSUMED CARE OF PT AT 1900. PT IS A/O TO SELF AND FAMILY, DENIES N/T IN HANDS, PT CANNOT FEEL HIS LEGS DUE TO SPINAL CORD INJURY, PT MOOD IS LABILE. LUNG SOUNDS CLEAR, HEART SOUNDS REGULAR, DENIES CP/SOB AT THIS TIME. PERIPHERAL PULSES STRONG, PT IS BEDBOUND, MEPILEX ON BOTTOM. PT HAS INDWELLING CATHETER, DRAINING AT BED SIDE, URINE DARK YELLOW. CALL LIGHT IN REACH, BED IN LOWEST POSTION, WILL CONTINUE TO MONITOR.
--- NOTE | 2019-11-08 04:42 | NUR ---
END SHIFT SUMMARY NO ACUTE CHANGES NOTED T/O THE NIGHT. PT SLEPT T/O THE NIGHT EXCEPT FOR ABOUT 0330 WHEN HE CALLED BECAUSE HE WANTED AN EXTENSION CORD, NOT BECAUSE HE WANTED TO PLUG ANYTHING IN, BUT BECAUSE NE WANTED ON. PT REORIENTED AND WENT BACK TO SLEEP. CATHETER DRAINING. CALL LIGHT IN REACH, BED IN LOWEST POSTION, WILL CONTINUE TO MONITOR UNTIL DAYSHIFT NURSE ARRIVES.
--- NOTE | 2019-11-08 09:00 | NUR ---
PT PLEASANT THIS AM. DENIES PAIN. IS ABSENT MOVEMENT OR FEELING ABD DOWN. H/R REG, NO MURMER NOTED. NO TLE. LUNGS CLEAR, RESP EASY, UNLABORED. ON R.A BT X4 LAST BM NOT KNOWN BY PT. VOIDS SMITH CATH. YELLOW, CLOUDY FLUID DRAINING. IN ATTENDS. OBSERVED WOUND ON L GLUT. HOLE IN CENTER. DR GARCIA VISUALIZED. CONSULT LIKELY. BED IN LOW POSITION, CALL LITE IN REACH, CALLS APPROP
--- NOTE | 2019-11-08 18:28 | NUR ---
DR GARCIA REQUESTED SURG CONSULT. DR BRISENO SAW PT. HE SPRAY WASHED WOUND ON GLUT. HE PACKED WITH CORNER OF 6X6 GAUZE INTO HOLE. BALANCE OUT OF WOUND. PLACED MEPILEX OVER ALL. TALKED TO PT ABOUT ROLLING TO KEEP OFF WOUND AREA. HE STATES HE UNDERSTANDS. WILL TRY TO KEEP OFF EVERY HOUR OR TWO. WILL NEED TO CALL FOR HELP. NO OTHER CONCERNS AT THIS TIME. BED IN LOW POSITION, CALL LITE IN REACH, CALLS APPROP
--- NOTE | 2019-11-09 03:30 | NUR ---
SHIFT SUMMARY ASSUMED CARE PF PT AT 1900. PT IS ALERT BUT ONLY ORIENTED TO FAMILY AND SELF. PT WAS VERY AGITATED AT THE BEGINNING OF THE SHIFT AND STATED HE WANTED TO LEAVE. WHEN PT WAS LEFT TO COOL DOWN, HE APOLIGIZED AND STATED THAT HE IS JUST CONFUSED SOMETIMES. HEART SOUNDS REGULAR, LUNG SOUNDS CLEAR. PT CONCERNED ABOUT WOUND ON BOTTOM, EXPLAINED TO PT THAT HE WILL HAVE DAILY DRESSING CHANGES AND IT WAS WRITTEN ON THE BOARD WHAT THEY WILL DO. PT SLEPT T/O THE NIGHT EXCEPT TO BE REPOSITIONED AND CHANGED. CALL LIGHT IN REACH, BED IN LOWEST POSITION, WILL CONTINUE TO MONITOR UNTIL DAYSHIFT NURSE ARRIVES.
--- NOTE | 2019-11-09 18:18 | NUR ---
NO ACUTE CHANGES THIS SHIFT. PATIENT COOPERATIVE WITH CARE TODAY. DRESSING TO R BUTTOCKS CHANGED TODAY USING GAUZE AND MEPILEX. DENIES ANY PAIN.
--- NOTE | 2019-11-10 03:45 | NUR ---
SHIFT SUMMARY NO ACUTE CHANGES NOTED T/O THE NIGHT. PT WAS IN A GOOD MOOD TONIGHT AND WAS VERY GRATEFUL FOR OUR CARE. PT HAD LIQUID, CLEAR STOOL IN HIS ATTENDS, ELECTRONIC COMPONENTS ASSEMBLER STATED SHE GOT IN REPORT THAT THIS WAS NORMAL FOR PT. CATHETER DRAINING WITH GRAVITY, URINE CLOUDY AND DARK. LUNG SOUNDS CLEAR, HEART SOUNDS REGULAR, DENIES ANY NEW SYMPTOMS. PT SLEPT T/O THE NIGHT EXCEPT TP BE CHANGED AND REPOSTIONED. CALL LIGHT IN REACH, BED IN LOWEST POSTION, WILL CONTINUE TO MONITOR UNTIL DAYSHIFT NURSE ARRIVES.
--- NOTE | 2019-11-10 12:30 | NUR ---
PT REQUESTING TO GET OOB TO CHAIR. W/C FOUND FOR PT AND LIFT USED TO GET HIM UP TO CHAIR.
--- NOTE | 2019-11-10 13:55 | NUR ---
PT IN LOBBY WITH FAMILY MEMBER, SMILING AND TALKING
--- NOTE | 2019-11-10 15:30 | NUR ---
PT REQUSTED TO RETURN TO BED, CASTING OPERATOR HELPER'S TO ROOM TO ASSIST. PT BECOMING COMBATIVE AND VERBALLY ABUSIVE. HE WAS TRANSFERRED BACK TO HIS BED VIA LIFT. WILL MONITOR.
--- NOTE | 2019-11-10 15:53 | NUR ---
PT DECLINED TO HAVE VITALS TAKEN AT 0800 AND AT 1600.
--- NOTE | 2019-11-10 16:44 | NUR ---
PT WAITING FOR PLACEMENT, PT APOLOGETIC REGARDING EARLIER COMBATIVE AND VERBAL ABUSE OUTBURST. NO ACUTE CHANGES NOTED THIS SHIFT, WILL CONTINUE TO MONITORL
--- NOTE | 2019-11-11 04:09 | NUR ---
SHIFT SUMMARY ASSUMED CARE OF PT AT 1900. PT IS ALERT AND ORIENTED TO SELF AND FAMILY, PT WAS VERY AGITATED TONIGHT, HE CALLED OUT INSTEAD OF USING HIS CALL BUTTON, WHEN ASKED IF HE KNEW HOW HE DEMONSTRATED, PT FIXATED ON HOW HE WAS NOT ABLE TO DIAL HIS PHONE AND WAS FUSTRATED WHEN THIS NURSE DEMONSTRATED, PT STARTED TO GET COMBATIVE AND VERBALLY ABUSIVE CALLING THIS NURSE "BITCH" WHEN LEAVING OUT THE DOOR. PT CONTINUED TO CALL OUT DURING THE NIGHT BUT WAS REDIRECTED. PT WAS QUIET AND SLEPT AFTER 0100. HEART SOUNDS REGULAR, LUNG SOUNDS CLEAR, DENIES ANY NEW SYMTOMS FROM YESTERDAY. CALL LIGHT IN REACH, BED IN LOWEST POSTION, WILL CONTINUE TO MONITOR UNTIL DAYSHIFT NURSE ARRIVES.
--- NOTE | 2019-11-11 04:48 | NUR ---
HALLUCIONATIONS PT AWOKE AT 0440 COLLING OUT, WHEN ENTERING THE ROOM THE PT WAS FUSTRATED AND STATED THAT HE COULNT FIND HIS CALL LIGHT, WHICH WAS NEXT TO HIM ON THE BED SIDE TABLE. THE PT ASKED WHEAT "THAT DOG IS DOING IN HERE", PT WAS REDIRECTED AND STATED THAT HE WAS SORRY AND HE IS UNHAPPY WITH THE WAY HIS LIFE IS GOING. PT IS MORE COOPERATIVE WITH CARE NOW. CALL LIGHT IN REACH, BED IN LOWEST POSTION, WILL CONTINUE TO MONITOR UNTIL DAYSHIFT NURSE SHAWNA.
--- NOTE | 2019-11-11 17:49 | NUR ---
PT AGREED TO AND TOOK A SHOWER, HAS BEEN MOSTLY PLEASANT AND COOPERATIVE, ONE EPISODE OF YELLING AND CURSING. DRESSING CHANGED TO LEFT BUTTOCK. NO ACUTE CHANGES NOTED THIS SHIFT, WILL CONTINUE TO MONITOR AND REPORT TO ONCOMING RN
--- NOTE | 2019-11-12 06:10 | NUR ---
MANAGER MARKETING SALES SUMMARY PT A/O X4. WAS APPRECIATIVE AND ALSO EMOTIONALLY LABILE. SLEPT WELL TONIGHT. NO COMAPLAINTS OF PAIN, NAUSEA, OR SOB. PT DECLINED TO BE REPOSITIONED IN BED THROUGHOUT THE NIGHT. SMITH PATENT AND DRAINING DARK RUMA URINE WITH WHITE MUCOUSY SEDIMENTS. BED IN LOWEST POSITION. CALL SPEARS WITHIN REACH. VSS.
--- NOTE | 2019-11-12 12:52 | NUR ---
Patient is angry and frustrated today. He does not engage in conversation much. He says negative things about his RN and his doctor after they leave the room and I tell him that is unkind and he states that he is "pissed off" that he is handicapped and that there is nothing good in the world for him. He then goes down the list of all the things he can't do. I try to talk to him about possibilities and what he can do and about what he has already done and he tells me to "f___ that" I try other approaches to cause patient to look at things in a different light but he seems to only get more frustrated so I leave for today and will try again tomorrow. I will continue to remain available to patient and family.
--- NOTE | 2019-11-12 18:51 | NUR ---
SHIFT SUMMARY PT IRRITABLE THIS MORNING WITH INITIAL MED PASS AND ASSESSMENT. DEMANDED COMPUTER THAT WAS ATTACHED TO WALL BE REMOVED. WAS ANNOYED THAT HE WAS ASKED WHY HE WOULDN'T KEEP HIS ARM BAND ON. ATTITUDE AND BEHAVIOR CONFRONTED AND PT THEN BECAME COOPERATIVE AND APPROPRIATE. STATED HE FEELS HE HAS NO PRIVACY AND PEOPLE ARE ALWAYS BOTHERING HIM. HAS BEEN APPROPRIATE THE REMAINDER OF THE DAY BUT DID ASK TO NOT BE BOTHERED AT NIGHT. L BUTTOCK DRESSING CHANGED.
--- NOTE | 2019-11-13 05:06 | NUR ---
SHIFT SUMMARY PT MOSTLY PLEASANT THIS EVENING, HOWEVER PT DOES BECOME EASILY IRRITATED. WAS INITIALLY UPSET WHEN THE MUSIC ADAPTER AND I HAD COME IN TO GIVE MEDICATIONS, DO ASSESSMENT, AND GET VITALS. EVEN AFTER HE HAD AGREED IT WOULD BE OKAY LONG WE BOTH CAME IN TOGETHER AND GOT IT ALL OVER WITH. THROUGHOUT THIS INTERACTION PT BECAME APOLOGETIC AND THEN PLEASANT. PT DOES NOT LIKE TO BE WOKEN FOR CARE. REFUSED A COUPLE TIMES TO BE TURNED BUT MORE AGREEABLE THIS EVENING THAN PT PREVIOUSLY HAS BEEN. STOOL CLEAR AND JELLY. SMITH CATHETER IN PLACE, DRAINING TO GRAVITY. URINE RUMA AND THICK. PT ASKED TO NOT HAVE VITALS DONE THIS AM. VITAL SIGNS STABLE AT START OF SHIFT. DRESSING TO BUTTOCKS WOUND REMAINED INTACT. WILL CONTINUE TO MONITOR.
--- NOTE | 2019-11-13 17:37 | NUR ---
SHIFT SUMMARY PT HAS BEEN COOPERATIVE AND BEHAVED APPROPRIATELY TODAY. HAD HAD CLEAR GELATINOUS STOOL TWICE. DRESSING TO L BUTTOCK WAS CHANGED AND PHOTO TAKEN. SAYS HE JUST WANTS TO GO BACK TO [place] SINCE HE KNOWS THE AREA WELL.
--- NOTE | 2019-11-14 05:57 | NUR ---
SHIFT SUMMARY PT MOSTLY PLEASANT BUT REQUESTS FREQUENTLY TO BE LEFT ALONE. REPORTED AT START OF SHIFT THAT PT WOULD NOT ALLOW VITAL SIGNS TO BE TAKEN IN THE AM HE DID NOT WANT TO BE WOKEN UP. DID ALLOW FOR VITAL SIGNS AT START OF SHIFT. PT ALLOWED US TO REPOSITION HIM WHENEVER HE WAS AWAKE. DRESSING TO L BUTTOCKS WOUND CLEAN, DRY, AND INTACT. SMITH CATHETER IN PLACE. PATENT AND DRAINING. URINE TRASH COLLECTOR IN COLOR BUT CONTINUES TO BE VERY CLOUDY AND FOUL SMELLING. PT HAD UNEVENTFUL NIGHT. NO ACUTE CHANGES THIS SHIFT. WILL CONTINUE TO MONITOR AND REPORT TO DAY RN.
--- NOTE | 2019-11-14 10:56 | NUR ---
JUST WENT IN NOW TO PASS AM MEDS AND ASSESS PATIENT; PATIENT GETS VERY UPSET IF HE IS AWOKEN. NEW ORDERS FROM DR GARCIA THIS MORNING FOR VITALS Q SHIFT ONLY AND TO D/C EYE DROPS PER PATIENT REQUEST. PATIENT TOOK ALL OF HIS MEDS.
--- NOTE | 2019-11-14 13:46 | NUR ---
Spiritual care visit conducted. Patient is in a pleasant mood and is kind and thoughtful. Patient talks about his mother, his connection with God and his thankfulness for his life. Patient seems to vacillate between angry and frustrated and pleasant and upbeat. This day is a good one and we have a very productive conversation about hope, meaning and purpose. Patient has positive ideas to contribute. I listen empathically, reinforce helpful attitudes, explore sources of dignity and relatedness and provide pastoral baby counselor and prayer. Patient is very active in the prayer and tags a few lines at the end of praise and gratitude. I will continue to remain available to patient and family.
--- NOTE | 2019-11-14 18:16 | NUR ---
SHIFT SUMMARY PATIENT HAS BEEN IN AN IRRITABLE MOOD TODAY. I ALLOWED THE PATIENT TO SLEEP IN AND WAITED TO PERFORM HIS ASSESSMENT AND PASS HIS MEDS UNTIL HE CALLED FOR STAFF. PATIENT DECLINED FOR HIS DRESSING TO BE CHANGED ON HIS L BUTTOCK. VITALS HAVE BEEN STABLE. SMITH PATENT AND DRAINING TO GRAVITY. WILL CONTINUE TO MONITOR AND PROVIDE CARE NEEDED.
--- NOTE | 2019-11-14 21:54 | NUR ---
JUST PRIOR TO MED PASS I WENT TO PTS ROOM. PT WAS SLEEPING AND AWAKENED TO VOICE. AWOKE ANGRILY AND SAID "WHAT"! I INFORMED HIM I WAS GETING HIS EVENING MEDS AND ASKED IF HE WANTED ANYTHING TO GO WITH THEM. PT SAID HE DID NOT. WHEN I CAME BACK TO ROOM WITH MEDS PT TOOK THEM BUT THEN REFUSED TO ALLOW ME TO DO MY SHIFT ASSESMENT. TOLD ME TO "GET OUT". PT APPEARS AAO, RESP E/U ON ROOM AIR. DOES NOT APPEAR IN ANY ACUTE DISTRESS, VSS. HE IS VERY IRRITABLE. WAS INFOMED BY DAY SHIFT RN THAT THIS IS NORMAL FOR PT. INFORMED CHARGE NURSE DURGA OF PT'S REFUSAL TO ALLOW ME TO ASSESS HIM.
--- NOTE | 2019-11-14 22:16 | NUR ---
PT BEGAN CALLING OUT AND YELLING LOUDLY. WHEN I WENT TO ROOM TO SEE WHAT WAS THE MATTER. HE SAID HE NEEDED HELP TO CALL HIS MOM. I USED THE ROOM PHONE TO DIAL HIS MOTHER FOR HIM. STATES NO OTHER NEEDS AT THIS TIME.
--- NOTE | 2019-11-15 06:21 | NUR ---
NOC SHIFT SUMMARY PT IS AAOX4. IRRITABLE WITH CARE. REFUSED SHIFT ASSESMENT. HAS ALSO REFUSED POSITION CHANGES BY THIS RN THAT HAVE BEEN OFFERED THROUGH THE NIGHT. RESP E/U ON ROOM AIR. VSS. NO ACUTE CHANGES HAVE BEED NOTED THIS SHIFT. PT PRESENTLY APPEARS TO BE SLEEPING AND IN NO ACUTE DISTRESS. WILL CONTINUE TO MONITOR.
--- NOTE | 2019-11-15 10:47 | NUR ---
CHANGED THE DRESSING ON PATIENTS L BUTTOCK AFTER HE WAS SHOWERED. WOUND TUNNELS A BIT. CLEANSED AND PACKED THE TUNNELING. COVERED WITH FOAM DRESSING PER ORDERS. TALKED WITH DR OROZCO AT 1045 REGARDING THE FREQUENCY OF THE DRESSING CHANGES. I STATED THAT CHANGING THE DRESSING DAILY ISNT GOING TO HELP THE WOUND HEAL QUICKER OR BETTER AND DR OROZCO WAS FINE WITH M-W- DRESSING CHANGES.
--- NOTE | 2019-11-15 17:52 | NUR ---
SHIFT SUMMARY NO ACUTE CHANGES OCCURED TODAY. UNEVENTFUL SHIFT. VITALS STABLE. PATIENT MOSTLY IN OKAY MOOD. PATIENT AWAITING PLACEMENT FOR DISCHARGE.
--- NOTE | 2019-11-16 05:47 | NUR ---
SHIFT SUMMARY PT REFUSED SHIFT ASSESMENT THIS NIGHT. WOULD TAKE EVENING MEDS BUT WOULD NOT ALLOW ASSESMENT OF EYES, HEART, LUNGS, SKIN ECT. IRRITABLE WITH CARE. HE HAS SLEPT FOR MUCH OF THE NIGHT. NO ACUTE CHANGES NOTED. PT PRESENTLY APPEARS TO BE SLEEPING AND IN NO ACUTE DISTRESS. WILL CONTINUE TO MONITOR. BED IN LOWEST POSITION, SIDE RAILS UP X3, CALL LIGHT IN REACH.
--- NOTE | 2019-11-16 17:11 | NUR ---
SHIFT SUMMARY NO ACUTE CHANGES THIS SHIFT. PATIENT CONTINUES TO BE HIS IRRITABLE SELF. AWAITING PLACEMENT FOR DISCHARGE.
--- NOTE | 2019-11-17 05:46 | NUR ---
SHIFT SUMMARY PT WAS ACTUALLY MUCH MORE COOPERATIVE THIS EVENING THAN HE HAS BEEN PRIOR TWO NIGHTS. ALLOWED THIS RN TO ASSESS HIM, OBTAINED VITALS, TOOK EVENING MEDS AND WENT TO SLEEP. STILL REFUSED POSITION CHANGES. THIS MORNING HE BECAME IRRITABLE AND COMBATIVE AGAIN DURING AN ATTENDS CHANGE. PT HAD SOAKED THE BEDSHEATS WELL AND WHILE CHANGING SHEET HE ATTEMPTED TO STRIKE ME. HE IS PRESENTLY SLEEPING AGAIN AND APPEARS IN NO ACUTE DISTRESS. WILL CONTINUE TO MONITOR.
--- NOTE | 2019-11-17 19:09 | NUR ---
SHIFT SUMMARY PT HAD A BED BATH AND WAS UP IN WHEELCHAIR THIS AFTERNOON, WHEELING SELF IN THE [place]. PT HAS HAD NO COMPLAINTS OF PAIN. DRESSING TO LEFT BUTTOCKS CHANGED THIS AM. NO ACUTE CHANGES THIS SHIFT. WAITING FOR PLACEMENT. CALL LIGHT IN REACH. REPORT GIVEN TO STEVEN ALEX.
--- NOTE | 2019-11-18 05:29 | NUR ---
SHIFT SUMMARY- PT. PLEASANT AND COOOPEATIVE WITH CARE THIS SHIFT. ASSESSMENT AND VS DONE TOGETHER 1X THIS SHIFT PER PT. REQUEST AND ORDER. PT. REQUESTING NOT TO BE DISTURBED. ASLEEP THE REST OF THE NIGHT. NO APPARENT DISTRESS NOTED. CALL LIGHT WITHIN REACH AND SIDE RAILS UP 2. WILL CONT TO MONITOR.
--- NOTE | 2019-11-18 17:00 | NUR ---
SHIFT SUMMARY- PT HAS BEEN PLEASANT AND COOPERATIVE T/O THE DAY. A/OX2, PERSON AND PLACE. PT DENIES ANY COMPLAINTS. LS CLEAR, ON RA. DRESSING AND PACKING TO LEFT BUTTOCK CHANGED. CHRONIC INDWELLING SMITH NOTED. PT UP TO W/C AND PUSHED SELF AROUND IN HALLS TODAY. NO OTHER ACUTE CHANGES THIS SHIFT. PT CONTINUES TO AWAIT PLACEMENT.
--- NOTE | 2019-11-19 05:31 | NUR ---
SHIFT SUMMARY- PT. HAS HAD NO ACUTE CHANGES OVERNIGHT. PLEASANT AND COOPERATIVE WITH CARE, ASLEEP T/O MOST OF THE SHIFT. CHRONIC SMITH CATHETER PATENT AND DRAINING. DENIES ANY NEEDS AT THIS TIME. PT. WAITING ON PLACEMENT. CALL LIGHT WITHIN REACH AND SIDE RAILS UP X2. WILL CONT TO MONITOR.
--- NOTE | 2019-11-19 12:24 | NUR ---
Spiritual care visit conducted. Patient tells me that he is frustrated about being stuck in the hospital and wants to go home. Patient spirits are immediately improved when his mother and his mother's friend come into patient's room. They all get to telling stories and patient begins laughing and joking with everyone. I provide companionship and prayer. Patient responds well and verbalizes appreciation for the visit. I will continue to remain available to patient and family.
--- NOTE | 2019-11-19 18:26 | NUR ---
PT. HAS BEEN PLEASANT AND COOPERATIVE T/O THE SHIFT. DRESSING CHANGED ON LEFT BUTTOCK. S/S DRAINAGE ON DRSG. DRAIN REMOVED. AREA CLEANED AND NEW PACKING PLACED IN WOUNND WITH Q-TIP.
--- NOTE | 2019-11-20 01:01 | NUR ---
PT RESTING QUIETLY. CHANGED LINENS. APPLIED BLUE CAP LOTION TO BOTTOM. MPLEX C/D/I. REPOSITIONED TO LEFT SIDE. GAVE ANTI-ANXIETY MED. PT AGREED TO NEXT RE-POSITION AT 4AM. OFFERED AND GAVE ORANGE JUICE. BED LOW AND LOCKED AND ALARMED. CALL SPEARS WITHIN REACH
--- NOTE | 2019-11-20 07:04 | NUR ---
END OF SHIFT: PT RESTED QUIETLY MUCH OF THE SHIFT. PER PATIENT REQUEST TO BE LEFT ALONE, WE LIMITED OUR ENTRIES INTO HIS ROOM AND DOUBLEED UP WHEN WE WERE ABLE. PATIENT RECEIVED MEDS PER EMAR. HE WAS GROUCHY AT FIRST BUT WITH GENTL REMINDERS THAT HE IS A NICE JUSTINA HE BECOMES PLEASANT AMD COOPERATIVE. HE HAD A BM TONIGHT AND WAS TURNED HE TOLERATED, LOTION WAS APPLIED TO HIS BOTTOM AND GROIN. BED LOW AND LOCKED. CALL SPEARS WITHIN REACH. NO ACUTE CHANGES.
--- NOTE | 2019-11-20 19:24 | NUR ---
PT. LYING QUIETLY . NO NOTEABLE CHANGES THIS SHIFT.
--- NOTE | 2019-11-21 04:58 | NUR ---
CASH CHECKER SUMMARY PT HAS BEEN VERY PLEASANT AND COOPERATIVE WITH STAFF TONIGHT. CALLS APPROPRIATELY FOR ASSISTANCE. PT DOES STILL FORGET THAT HE'S AT THE HOSPITAL AT TIMES BUT IS EASILY REORIENTED FOR THE MOST PART. PT HAS HAD A COUPLE STOOLS TONIGHT THAT ARE CLEAR AND JELLY LIKE IN SUBSTANCE WITH SOME LIGHT YELLOW STREAKS. DENIES PAIN, SOB, N/V. PT EXPRESSED CONCERN FOR HIS MOTHER'S SAFETY HE HAD NOT HEARD FROM HER SINCE HER TRIP TO [place] YESTERDAY. ASSISTED PT WITH PHONE TO CALL HIS MOTHER AND CHECK ON HER. PT STATED SHE MADE IT HOME SAFELY. VSS, WILL CONTINUE TO MONITOR.
--- NOTE | 2019-11-21 10:30 | NUR ---
DR JAIME CALLED. STATES MOM IN HIS OFFICE. HE REQUESTING WHY NOT IN [facility] INSTEAD OF HERE. REFERRED HIM TO CALL CARE PLANNING.
--- NOTE | 2019-11-21 12:08 | NUR ---
PT QUITE PLEASANT THIS AM. DENIES PAIN. PT TALKATIVE, STATES GOOD TO SEE ME AGAIN. A/O X3. STATES SOME HALUCINATIONS PER PT. THOUGHT SEEING RATS ON FLOOR. TURNED LIGHT ON IN BATHROOM TO GIVE LIGHT TO ROOM. PT STATES HAS HAD BEFORE, NOT CONCERNED. H/R REG, NO MURMER NOTED. NO TELE. LUNGS CLEAR RESP EASY, UNLABORED. ON. R.A/ BT X4 LAST BM NOT REMEMBERED BY PT. SMITH CATH DRAINING CLOUDY YELLOW FLUID. PT STATES NO FEELING OR MOVEMENT FROM MID ABD DOWN. THIS IS BASELINE PER PT. NOTIFIED DR GASCA OF HALUCINATIONS AND SMITH CATH . BED IN LOW POSITION, CALL LITE IN REACH. CALLS APPROP
--- NOTE | 2019-11-21 19:23 | NUR ---
PT PLEASANT TODAY. DENIES PAIN. MOTHER IN HERE TODAY. EATING WELL. PENDIING PLACEMENT. NO OTHER CONCERNSAT THIS TIME. BED IN LOW POSITION, CALL LITE IN REACH, CALLSPAPPRP
--- NOTE | 2019-11-22 05:06 | NUR ---
MANUAL WRITER SUMMARY NO ACUTE CHANGES. PT MOSTLY PLEASANT BUT IS IRRITABLE AND CONFUSED AT TIMES. PT OCCASIONALLY HAVING HALLUCINATIONS BUT SEEM TO BE RELATED TO HAVING THE ROOM COMPLETELY DARK. DENIES PAIN, SOB, N/V. ASSISTED WITH REPOSITIONING ALLOWED BY PT. VSS, WILL CONTINUE TO MONITOR.
--- NOTE | 2019-11-22 09:50 | NUR ---
PT PLEASANT COOP A/O 2-3. DENIES PAIN. DENIES HALUCINATIONS TODAY. H/R REG, NO MURMER NOTED NO TELE. LUNGS CLEAR, RESP EASY, UNLABORED. ON R.A. BT X4 LAST BM YEST [place] PT. VOIDS PER FOLEYCATH. YELLOW CLOUDY FLUID DRAINING. PERFORMED NEIDA CARE AROUND SMITH CATH TODAY. WILL CHECK WOUND ON LEFT GLUT AREA TODAY. BED IN LOW POSITIOIN, CALL LITE IN REACH, CALLS APPROP
--- NOTE | 2019-11-22 15:30 | NUR ---
CHANGED WOUND DRESSING. PULLED OUT PACKING, SPRAYED WITH WOUND CLEANSE. REPACKED WITH ONE CONTINUOUS PIECE 1/4 INCH. PLACED NEW MEPILEX OVER WOUND. SCANT MOISTNESS ON PACKING PULLED FROM WOUND.
--- NOTE | 2019-11-22 18:17 | NUR ---
PT DELILAH BORDEN. DID CHANGE WOUND PACKING. REPLACED WITH NEW MEPILEX. MOTHER NOT ABLE TO COME IN TODAY. NO OTHER CONCERNS THIS LAWRENCE. BED IN LOW POSITION, CALL LITE IN REACH, CALLS APPROP.
--- NOTE | 2019-11-23 04:38 | NUR ---
SHIFT SUMMARY PT FOR THE MOST PART HAS BEEN PLESANT AND COOPERATIVE WITH CARE. PT HAS SMALL PERIODS OF AGIATATION THAT ARE USUALLY REMEDIED WITH REASSURANCE. PT HAD LARGE INCONTINENT BM THIS SHIFT. NOT MUCH URINE OUTPUT ON DAYSHIFT OR THIS SHIFT. PT BLADDER SCANNED X2 THIS SHIFT AND EACH SCAN NOT MUCH DIFFERENT. 389 MLS ON LAST SCAN. PT SMITH IS PATENT AND DRAINING CLOUDY BUT NO SIGNS OF OBSTRUCTION OR HEAVY SEDIMENT. PT HAS VOIDED ABOUT 200 MLS THIS SHIFT. HE DENIES PAIN. HE LIKES TO BE LEFT ALONE TO SLEEP AND DOES NOT WANT STAFF IN ROOM. A RESULT STAFF MEMBERS OVER THE COURSE OF HIS STAY HAVE ONLY TAKEN HIS VITALS ONCE A SHIFT, WE CONTINUED THIS ALSO THIS SHIFT. VITALS ARE STABLE. PT IS WITHOUT DISTRESS. NO OTHER CHANGES TO REPORT. BED IN LOWEST POSITION, CALL LIGHT WITHIN REACH. WILL CONTINUE TO MONITOR AND REPORT TO ONCOMING RN.
--- NOTE | 2019-11-23 09:00 | NUR ---
PT PLEASANT COOP A/O TODAY. DENIES PAIN. ENCOURAGED TO KEEP OFF WOUND ON BUTTOCK MUCH POSS. H/R REG, NO MURMER NOTED. NO TELE. LUNGS CLEAR, RESP EASY, UNLABORED ON R.A. BT X4 LAST BM YEST. VOIDS SMITH CATH. CLOUDY, YELLOW, SEDIMENTARY FLUID DRAINING. BED IN LOW POSITION, CALL LITE IN REACH, CALLS APPROP.
--- NOTE | 2019-11-23 16:15 | NUR ---
merlos cath only minimal 1-200 cc in merlos bag with much sediment. bladder scan shows 565 cc. flushed cath with a total of 50 cc to get flowing again. finally got sediment flowing and very cloudy fluid again. emptied bag after flush was approx 625 cc out. rescanned bladder. shows 105 cc remaining. light cloudy pink fluid with sediment draining in line. continue to monitor
--- NOTE | 2019-11-23 17:13 | NUR ---
SMITH CATH STILL CLOUDY AND SEDIMENT REPLACED SIMTH
[2019-11-23 17:22] LABS: Source, Urine Catheter
[2019-11-23 17:33] LABS: Bilirubin, Urine Neg (Neg); Blood, Urine 5+ (Neg); Glucose Qualitative, Urine Neg (Neg); Ketones, Urine Neg (Neg); Leukocyte Esterase, Urine 3+ (Neg); Nitrite, Urine Pos (Neg); Protein, Urine 3+ (Neg); Specific Gravity, Urine 1.015 (1.003-1.022); Urobilinogen, Urine NORM (Normal)
[2019-11-23 17:40] LABS: Appearance, Urine Turbid (Clear); Color, Urine Orange (P-Yellow)
--- NOTE | 2019-11-23 18:05 | NUR ---
PT PLEASANT TODAY. SMITH CATH NOT DRAINING. TRIED FLUSHING SEVERAL TIMES. GOT SOME DRAINAGE, TALKED TO FINALLY REPLACED. BETTER. SOME PINK/RUMA FLUID DRAINING AT THIS TIME. NO OTHER CONCERNS AT THIS TIME. BED IN LOW POSITION, C ALL LITE IN [facility] CALLS APPROP
[2019-11-23 18:25] LABS: White Blood Cells, Urine TNTC /hpf (0-5)
[2019-11-23 18:26] LABS: Bacteria Many /hpf; Mucus Heavy (0-Heavy); Red Blood Cells, Urine TNTC /hpf (0-2); Squamous Epithelial Cells Rare /hpf (Few)
--- NOTE | 2019-11-24 05:18 | NUR ---
SHIFT SUMMARY NO ACUTE CHANGES TO REPORT THIS SHIFT. PT HAS RESTED OFF AND ON THIS SHIFT. PERIODS OF AGITATION BUT MILD OVERALL. PT CALMS WITH REASSURANCE. NEW CATHETER THAT WAS PLACED DURING DAYSHIFT IS PATENT AND DRAINING. BM THIS SHIFT. PT WITH GOOD APPETITIE AND REQUESTS SNACKS AND BEVERAGES. ASSESSMENT UNCHANGED. BED IN LOWEST POSITION, CALL LIGHT WITHIN REACH. WILL CONTINUE TO MONITOR AND REPORT TO ONCOMING RN.
--- NOTE | 2019-11-24 16:00 | NUR ---
Spiritual care visit conducted. Patient is in good spirits today. We talk about the possibiliteis of moving to [place]. Patient talks about the relatives that live there, what the climate is like and who he could, maybe, move in with. Patient thinks his mom, Gt, might be pushing for this. Patient tells me he has been fighting her on this but now, as he talks about it, he is changing his mind. He also states that he feels stuck and it is frustrating to him. We talk about being open to ideas and new possibilities and not allow "stuck" to be a mindset or limiting him for his future. I listen empathically and provide companionship. I will continue to remain avialable to patient and family.
--- NOTE | 2019-11-24 18:36 | NUR ---
SHIFT SUMMARY. A&OX2-3, INTERMITTENT CONFUSION. PLEASANT AND COOPERATIVE. PT DENIES PAIN, SOB, N/V. DRESSING TO L BUTTOCK CLEANSED AND CHANGED TODAY. PROPHALACTIC COCCYX/SACRUM DRESSING PLACED SECONDARY TO BLANCHABLE REDNESS. PT'S MOTHER IN TO VISIT THIS AFTERNOON. NO NEW CHANGES OR CONCERNS.
--- NOTE | 2019-11-25 06:51 | NUR ---
SHIFT SUMMARY NO ACUTE CHANGES THIS SHIFT. AOX4. VSS. ANSWERS ALL QUESTIONS APPROPRIATELY. FOLLOWS DIRECTIONS. VERY PLEASENT & APPROPRIATE W/CARE. DENIES PAIN, NAUSEA OR DYSPNEA. TURNED, CHECKED & REPOSITIONED Q2H. SMITH IS PATENT & DRAINING CLOUDY YELLOW URINE W/SMALL AMOUNT SEDIMENT. BILAT FEET HAD +3 PITTING EDEMA, ELEVATED ON PILLOWS. CALL LIGHT IN REACH.
--- NOTE | 2019-11-25 18:42 | NUR ---
SHIFT SUMMARY. PT PLEASANT AND COOPERATIVE WITH CARE. NO PAIN, SOB, N/V. DRESSING TO L BUTTOCK C/D/I.
--- NOTE | 2019-11-26 05:16 | NUR ---
SHIFT SUMMARY AOX4. VSS. ANSWERS QUESTIONS APPROPRIATELY, FOLLOWS DIRECTIONS. IS MORE IRRITABLE W/CARE TONIGHT THEN PREVIOUS NIGHT BUT STILL ALLOWS CARE. CHANGED & REPOSITIONED Q2H. DENIES PAIN, N/V OR DYSPNEA. HAS +3 PITTING EDEMA IN BILAT FEET. WOUND DRESSING ON L BUTTOCKS CHANGED SINCE IT WAS SOILED, SMALL AMOUNT SEROSANGUINOUS DRAINAGE ON DRESSING. CALL LIGHT IN REACH. WCTM.
--- NOTE | 2019-11-26 14:19 | NUR ---
Spiritual care visit conducted. Patient is in the [address] way in a wheel chair and asks if I could take him around so he can get a change of scenery. I hold patient's water and lead him down to the courtyard outside the cafeteria. Patient is exhausted by the time we get there and almost falls asleep in the chair as he enjoys the sun. Patient is in good spirits and thanks me several times for getting him into some sunshine. We talk about focusing on what he can do and what he does have instead of the "can't-s." We also talk there being a whole world of opportunities out in the world and he needs to be finding them. We go back to his room at a much slower pace and make several longer stops. Patient is very funny and makes both of us laugh often. I will continue to remain available to patient and family.
--- NOTE | 2019-11-26 17:14 | NUR ---
PT IS A/OX3, PLEASANT AND COOPERATIVE, AT TIMES CAN GET IRRITABLE, THE PT TODAY WAS UP INTO THE WHEELCHAIR, AND WHEELED HIMSELF AROUND THE UNIT, PTS LEFT BUTTOCK WOUND DRESSING WAS CHANGED AND PACKED PHOTOS WERE TAKEN FOR UP DATE, THE PTS FAMILY WAS IN TO SEE HIM, PT APPEARS TO BE BREATHING EASILY ON RA, CALL LIGHT IN REACH, PT DENIED PAIN, BED ALARM ON
--- NOTE | 2019-11-27 04:34 | NUR ---
SHIFT SUMMARY: PT A/OX3. MAKING NEEDS KNOWN. NO AGITATION OR AGGRESSION TONIGHT. HAS BEEN PLEASANT AND COOPERATIVE. SLEPT THROUGH MUCH OF THE NIGHT. F/C PATENT AND DRAINING CLOUDY YELLOW URINE. DRESSING TO DECUB ON BUTTOCKS C/D/I. NO ACUTE CHANGES. WILL CONT TO MONITOR.
--- NOTE | 2019-11-27 17:27 | NUR ---
PT IS A/OX3, PLEASANT AND COOPERATIVE, AT TIMES CAN BE IRRITABLE, THE PT APPEARS TO BE BREATHING EASILY ON RA AT THIS TIME, THE PT DENIED ANY PAIN, THE PT WAS UP IN HIS WHEELCAHIER TODAY FOE A COUPLE OF HOURS AND WHEELED HIMSELF AROUND THE MEDICAL UNIT, PTS CALLED CONCERNING THE PTS MEDICATIONS AND ASKED IF A MEDICATION LIST COULD BE SENT TO DR. DOTTIE JAIME BEFORE THE PT IS DC'D ON SUNDAY, THE CARE MANAGMENT TEAM WAS INFORMED OF HER REQUEST, CALL LIGHT IN REACH WILL CONTINUE TO MONITOR AND ASSESS FOR CHANGES
--- NOTE | 2019-11-28 04:31 | NUR ---
SHIFT SUMMARY: VSS. AFEB. A/OX3. MAKES NEEDS KNOWN. DENIES PAIN. F/C PATENT AND DRAINING CLOUDY YELLOW URINE. DRESSINGS TO BUTTOCKS/COCCYX C/D/I. PT COOPERATIVE TONIGHT. NO ACUTE ISSUES OVERNIGHT. WILL CONT TO MONITOR.
--- NOTE | 2019-11-28 17:43 | NUR ---
PATIENT IS ALERT AND ORIENTED AND COOPERATIVE WITH CARE. THE WOUND ON THE PATIENT'S BUTTOCKS WAS CLEANED, PACKED AND MEASURED TODAY. SMITH IS IN PLACE AND DRAINING. PATIENT CALLS APPROPRIATELY. WILL CONTINUE TO MONITOR
--- NOTE | 2019-11-29 04:27 | NUR ---
SHIFT SUMMARY ADMITTED FOR ACUTE METABOLIC ENCEPHALOPATHY. DNR CODE. PLAN IS TO SEND HIM HOME W/HIS MOM AND 2 CAREGIVERS. CHRONIC SMITH IS PATENT (HE IS COLONIZED), LIFT PATIENT - T4 PARAPLEGIC. PRESSURE ULCER ON RT BUTTOCK PACKED & PROTECTED BY MEPILEX, PREVENTATIVE MEPILEX IN PLACE ON COCCYX. HX OF LABILE MOODS BUT PLEASANT AND COOPERATIVE THIS SHIFT. NO IV ACCESS, RA, CARDIAC DIET. DOES CALL APPROPRIATELY. HX: TBI, ANXIETY, COPD, PARAPLEGIA, PERIODS OF CONFUSION.
--- NOTE | 2019-11-29 18:09 | NUR ---
SHIFT SUMMARY PT A/O X 2-3. MAKES NEEDS KNOWN, REFUSED CARE OF ATTEMPTS TO REPOSITION PT. VSS. SMITH IN PLACE DRAINING YELLOW/DARK YELLOW URINE, LIGHT SEDIMENT. CONTINUED NEED FOR SMITH CONFIRMED. NO ACUTE CHANGES IN CONDITION.
--- NOTE | 2019-11-30 04:32 | NUR ---
SHIFT SUMMARY ADMITTED FOR ACUTE METABOLIC ENCEPHALOPATHY. DNR CODE. PRESSURE ULCER ON RT BUTTOCK, PACKED AND COVERED IN MEPILEX. T4 PARAPLEGIC, LIFT TO WHEELCHAIR. LABILE MOODS, RA, CARDIAC DIET. PLAN IS FOR DC TO HOME WITH MOM AND TWO CAREGIVERS. CHRONIC SMITH IS PATENT, YET COLONIZED. HX: TBI, COPD, ANXIETY. PERIODS OF HALLUCINATIONS AND CONFUSION.
--- NOTE | 2019-11-30 17:49 | NUR ---
NO ACUTE CHANGES NOTED THIS SHIFT, PT HAS BEEN PLEASANT AND COOPERATIVE WITH CARE TODAY. DRESSING CHANGED TO LEFT BUTTOCK. PT IS ANTICIPATING DISCHARGE TO HOME TOMORROW AFTER NECESSARY EQUIPMENT HAS BEEN DELIVERED. WILL CONTINUE TO MONITOR AND REPORT TO ONCOMING RN
--- NOTE | 2019-12-01 04:59 | NUR ---
SHIFT SUMMARY- PT. PLEASANT AND COOPERATIVE WITH CARE LAST NIGHT. APPEARED TO HAVE SLEPT COMFORTABLY T/O THE SHIFT. NO APPARENT DISTRESS NOTED. DENIED ANY PAIN OR DISCOMFORT THIS SHIFT. PLAN FOR POSSIBLE D/C HOME TODAY. CALL LIGHT WITHIN REACH AND SIDE RAILS UP X2. WILL CONT TO MONITOR.
--- NOTE | 2019-12-01 08:14 | NUR ---
PT AGITATED. PT AGITATED AND WANTS TO GET OUT OF BED. PT INFORMED THAT STAFF WILL GET HIM UP AFTER EVERYONE HAS EATEN. PT AGITATED WITH THIS ANSWER. PT SET UP TO EAT BREAKFAST. PT YELLED FOR THIS RN TO "GET OUT OF HERE" AND PUSHED BEDSIDE TABLE ACCROSS ROOM. THIS RN STATED WE WILL BE BACK WHEN HE CALMS DOWN.
--- NOTE | 2019-12-01 08:51 | NUR ---
PT CARE REFUSAL THIS RN WENT INTO ROOM TO GET PT UP PER REQUEST. PT UPSET THAT HE MUST ROLL AND WANTS US TO STAND HIM UP. PT EXPLAINED THAT THIS IS UNSAFE AND CANNOT BE DONE. PT ANGRY WITH THIS RESPONSE. PT STATES THAT INSTEAD HE WANTS A SHOWER. PT INFORMED THAT THAT IS FINE, BUT HE MUST ROLL TO GET ON A SHOWER SLING. PT BECAME ANGRIER. PT YELLED FOR US ALL TO LEAVE HIS ROOM. PT OFFERED MORNING MEDS PRIOR TO THIS EVENT AND REFUSED THEM AT THE TIME. PT REFUSED VITALS. PT REFUSED TO HAVE BREIF CHANGED. NEIDA CARE COMPLETED. WHEN GIVEN BACK BLANKETS, PT THREW THEM OFF OF HIM AND TOWARD THIS RN. PT LEFT IN ROOM WITH BED DOWN.
--- NOTE | 2019-12-01 11:25 | NUR ---
PT COOPERATIVE NOW PT WAS TALKED TO BY HIS MOTHER. PT APPOLOGIZED FOR THE WAY HE ACTED THIS AM. COOPERATIVE WITH CARE NOW. PT TOOK AM MEDS. WILL CONTINUE TO MONITOR.
--- NOTE | 2019-12-01 14:07 | NUR ---
PT DISCHARGED PT DISCHARGED AT 1400. PT IN STABLE CONDITION. NO CHANGES IN ASSESSMENT PRIOR TO DC. DRESSING CHANGED PRIOR TO DC. PICS TAKEN. PT REFUSED EDUCATION. PACKET SENT WITH PATIENT FOR PATIENT'S MOTHER TO REVIEW. CALL BACK NUMBER LISTED IF NEEDED.
== END 2019-12-01 14:04 | disposition home or self-care (01) ==
LOC: ER 20:28 → ERHOLD 20:29 → MEDS 20:29 → ENPENDDIS 12-01 10:25 → MEDS 12-01 14:04
PROVIDERS: Internal Medicine; Nurse Practitioner Acute Care; Physician Assistant; ADMIT Internal Medicine
DX: G92 Toxic encephalopathy (principal); D64.9 Anemia, unspecified; R41.89 Other symptoms and signs involving cognitive functions and awareness; H10.9 Unspecified conjunctivitis; J44.9 Chronic obstructive pulmonary disease, unspecified; F32.9 Major depressive disorder, single episode, unspecified; L89.329 Pressure ulcer of left buttock, unspecified stage; L89.154 Pressure ulcer of sacral region, stage 4; G82.20 Paraplegia, unspecified; T14.8XXS Other injury of unspecified body region, sequela; E66.9 Obesity, unspecified; Z79.899 Other long term (current) drug therapy; Z87.891 Personal history of nicotine dependence; Z68.31 Body mass index [BMI] 31.0-31.9, adult
CPT/HCPCS: 36415; 51702; 80048; 80053; 81001; 85025; 87086; 94640; 94760; 96365-59; 97166; 99285-25; J0713; J1650; J7050

== ENCOUNTER → 2020-01-05 | Outpatient (CLI) | payer OTHER | END | disposition home or self-care (01) | LOC: LAB HH 16:00 | DX: L89.324 Pressure ulcer of left buttock, stage 4 (principal); G82.20 Paraplegia, unspecified | CPT/HCPCS: 87070; 87075; 87077; 87186; 87205 ==

== ENCOUNTER → 2020-01-26 | Outpatient (CLI) | payer OTHER | END | disposition home or self-care (01) | LOC: LAB HH 16:05 | DX: L89.324 Pressure ulcer of left buttock, stage 4 (principal) | CPT/HCPCS: 87070; 87075; 87077; 87186; 87205 ==

== ENCOUNTER 2020-05-10 00:23 | Day surgery (SDC) | payer OTHER | END 2020-05-10 23:10 | disposition home or self-care (01) | LOC: WOUND 00:23 | DX: L89.323 Pressure ulcer of left buttock, stage 3 (principal); L89.891 Pressure ulcer of other site, stage 1; G82.20 Paraplegia, unspecified ==

== ENCOUNTER 2020-05-17 00:29 | Day surgery (SDC) | payer OTHER | END 2020-05-17 22:59 | disposition home or self-care (01) | LOC: WOUND 00:29 | DX: L89.323 Pressure ulcer of left buttock, stage 3 (principal); G62.9 Polyneuropathy, unspecified; N31.9 Neuromuscular dysfunction of bladder, unspecified; G82.20 Paraplegia, unspecified ==

== ENCOUNTER 2020-05-24 00:21 | Day surgery (SDC) | payer OTHER | END 2020-05-24 22:46 | disposition home or self-care (01) | LOC: WOUND 00:21 | DX: L89.323 Pressure ulcer of left buttock, stage 3 (principal) ==

== ENCOUNTER 2020-06-14 01:10 | Day surgery (SDC) | payer OTHER | END 2020-06-14 23:21 | disposition home or self-care (01) | LOC: WOUND 01:10 | DX: L89.323 Pressure ulcer of left buttock, stage 3 (principal) ==

== ENCOUNTER 2020-07-14 00:39 | Day surgery (SDC) | payer OTHER | END 2020-07-14 22:48 | disposition home or self-care (01) | LOC: WOUND 00:39 | DX: L89.323 Pressure ulcer of left buttock, stage 3 (principal); L89.322 Pressure ulcer of left buttock, stage 2 | CPT/HCPCS: G0463 ==

== ENCOUNTER 2020-07-28 03:18 | Day surgery (SDC) | payer OTHER | END 2020-07-28 23:27 | disposition home or self-care (01) | LOC: WOUND 03:18 | DX: I96 Gangrene, not elsewhere classified (principal); L89.322 Pressure ulcer of left buttock, stage 2; G82.20 Paraplegia, unspecified; G62.9 Polyneuropathy, unspecified; N31.9 Neuromuscular dysfunction of bladder, unspecified; G81.91 Hemiplegia, unspecified affecting right dominant side; J44.9 Chronic obstructive pulmonary disease, unspecified; F03.90 Unspecified dementia, unspecified severity, without behavioral disturbance, psychotic disturbance, mood disturbance, and anxiety; Z79.899 Other long term (current) drug therapy; Z51.5 Encounter for palliative care | CPT/HCPCS: G0463 ==

== ENCOUNTER → 2020-08-10 | Outpatient (CLI) | payer OTHER ==
[2020-08-10 20:08] LABS: Appearance, Urine Cloudy (Clear); Bilirubin, Urine Neg (Neg); Blood, Urine 5+ (Neg); Color, Urine Amber (P-Yellow); Glucose Qualitative, Urine Neg (Neg); Ketones, Urine 1+ (Neg); Leukocyte Esterase, Urine 3+ (Neg); Nitrite, Urine Neg (Neg); Protein, Urine 3+ (Neg); Specific Gravity, Urine 1.015 (1.003-1.022); Urobilinogen, Urine 1+ (Normal); pH, Urine 6.5 (5.0-8.0)
[2020-08-10 20:14] LABS: Amorphous Light (0-Heavy); Bacteria Many /hpf; Red Blood Cells, Urine TNTC /hpf (0-2); Squamous Epithelial Cells Not Seen /hpf (Few); White Blood Cells, Urine TNTC /hpf (0-5)
== END | disposition home or self-care (01) ==
LOC: LAB SHORT 20:00 → LAB 20:00
PROVIDERS: Family Medicine
DX: N39.0 Urinary tract infection, site not specified (principal)
CPT/HCPCS: 81001; 87077; 87086; 87186

== ENCOUNTER → 2021-07-27 | Outpatient (CLI) | payer OTHER ==
[2021-07-27 15:08] LABS: Appearance, Urine Cloudy (Clear); Bilirubin, Urine Neg (Neg); Blood, Urine 5+ (Neg); Color, Urine Yellow (P-Yellow); Glucose Qualitative, Urine Neg (Neg); Ketones, Urine Neg (Neg); Leukocyte Esterase, Urine 3+ (Neg); Nitrite, Urine Neg (Neg); Protein, Urine 3+ (Neg); Urobilinogen, Urine 1+ (Normal); pH, Urine 6.5 (5.0-8.0)
[2021-07-27 15:37] LABS: White Blood Cells, Urine 50-100 /hpf (0-5)
[2021-07-27 15:39] LABS: Amorphous Light (0-Heavy); Bacteria Many /hpf; Red Blood Cells, Urine 50-100 /hpf (0-2); Squamous Epithelial Cells Rare /hpf (Few)
== END | disposition home or self-care (01) ==
LOC: LAB HH 11:50 → LAB 11:50
PROVIDERS: Family Medicine
DX: N39.0 Urinary tract infection, site not specified (principal); R39.9 Unspecified symptoms and signs involving the genitourinary system; Z87.440 Personal history of urinary (tract) infections
CPT/HCPCS: 81001; 87077; 87086; 87186

== ENCOUNTER → 2021-10-04 | Outpatient (CLI) | payer OTHER | END | disposition home or self-care (01) | LOC: LAB SHORT 16:27 | DX: N39.0 Urinary tract infection, site not specified (principal) | CPT/HCPCS: 87077; 87086; 87186 ==

== ENCOUNTER → 2021-10-28 | Outpatient (CLI) | payer OTHER ==
[2021-10-28 18:04] LABS: Source, Urine Clean Catch
[2021-10-28 18:47] LABS: Appearance, Urine Turbid (Clear); Bilirubin, Urine Neg (Neg); Color, Urine Yellow (P-Yellow); Glucose Qualitative, Urine Neg (Neg); Nitrite, Urine Neg (Neg)
[2021-10-28 19:10] LABS: Blood, Urine 5+ (Neg); Ketones, Urine Neg (Neg); Leukocyte Esterase, Urine 3+ (Neg); Protein, Urine 3+ (Neg); Urobilinogen, Urine 2+ (Normal)
[2021-10-28 19:11] LABS: White Blood Cells, Urine TNTC /hpf (0-5)
[2021-10-28 19:12] LABS: Bacteria Many /hpf; Red Blood Cells, Urine 25-50 /hpf (0-2); Squamous Epithelial Cells Rare /hpf (Few)
== END ==
LOC: LAB HH 09:15
PROVIDERS: Family Medicine
DX: N39.0 Urinary tract infection, site not specified (principal); N31.9 Neuromuscular dysfunction of bladder, unspecified; Z87.440 Personal history of urinary (tract) infections
CPT/HCPCS: 81001

== ENCOUNTER → 2021-11-23 | Outpatient (CLI) | payer OTHER | END | disposition home or self-care (01) | LOC: LAB SHORT 18:51 → LAB 18:51 | DX: N39.0 Urinary tract infection, site not specified (principal); C61 Malignant neoplasm of prostate; I11.0 Hypertensive heart disease with heart failure; I50.9 Heart failure, unspecified; I25.10 Atherosclerotic heart disease of native coronary artery without angina pectoris; J02.9 Acute pharyngitis, unspecified; D64.9 Anemia, unspecified; E11.9 Type 2 diabetes mellitus without complications; R53.83 Other fatigue; E78.2 Mixed hyperlipidemia; E03.9 Hypothyroidism, unspecified; I48.91 Unspecified atrial fibrillation | CPT/HCPCS: 87077; 87086; 87186 ==

== ENCOUNTER → 2021-12-01 | Outpatient (CLI) | payer OTHER ==
[2021-12-01 20:17] LABS: BASOPHILS ABSOLUTE AUTO 0.02 K/mm3 (0.00-0.23); BASOPHILS PERCENT AUTO 0 % (0-2); EOSINOPHILS ABSOLUTE AUTO 0.11 K/mm3 (0.00-0.68); EOSINOPHILS PERCENT AUTO 2 % (0-6); Hematocrit 45.2 % (37.0-53.0); Hemoglobin 14.5 g/dL (13.5-17.5); IMMATURE GRAN ABSOLUTE AUTO 0.04 K/mm3 (0.00-0.10); IMMATURE GRAN PERCENT AUTO 1 % (0-1); LYMPHOCYTES ABSOLUTE AUTO 1.24 K/mm3 (0.84-5.20); LYMPHOCYTES PERCENT AUTO 21 % (21-46); MONOCYTES ABSOLUTE AUTO 0.69 K/mm3 (0.16-1.47); MONOCYTES PERCENT AUTO 12 % (4-13); Mean Corpuscular HGB 28.3 pg (26.0-34.0); Mean Corpuscular HGB Conc 32.1 g/dL (31.5-36.5); Mean Corpuscular Volume 88 fL (80-100); Mean Platelet Volume 11.7 fL (9.1-12.4); NEUTROPHILS ABSOLUTE AUTO 3.81 K/mm3 (1.96-9.15); NEUTROPHILS PERCENT AUTO 64 % (41-73); Platelet Count 101 K/mm3 (150-400); RDW Coefficient Variation 15.3 % (11.7-14.2); RDW Standard Deviation 50.1 fL (35.1-46.3); Red Blood Cell Count 5.13 M/mm3 (4.30-5.90); White Blood Cell Count 5.91 K/mm3 (4.00-11.30)
[2021-12-01 20:48] LABS: Alanine Aminotransfer (ALT/SGP 71 U/L (12-78); Albumin, Blood 2.7 g/dL (3.4-5.0); Albumin/Globulin Ratio 0.6 (0.8-1.8); Alk Phos 117 U/L (50-136); Anion Gap 7 mmol/L (6-16); Aspartate Aminotrans (AST/SGOT 63 U/L (12-37); Bilirubin, Total 0.8 mg/dL (0.1-1.0); Blood Urea Nitrogen 25 mg/dL (8-24); CHOL/HDL RATIO 5.1; CO2, Blood 24 mmol/L (21-32); Calcium, Blood 8.5 mg/dL (8.5-10.1); Chloride, Blood 113 mmol/L (98-108); Cholesterol 96 mg/dL (50-200); Creatinine, Blood 1.25 mg/dL (0.60-1.20); Globulin, Blood 4.2 g/dL (2.2-4.0); Glomerular Filtration Rate 58 (60-); Glucose, Blood 138 mg/dL (70-99); HDL Cholesterol 19 mg/dL (>39); LDL/HDL RATIO 2.7; Low Density Lipoprotein Chol 50 mg/dL (0-110); Potassium, Blood 3.5 mmol/L (3.5-5.5); Sodium, Blood 144 mmol/L (136-145); Total Protein, Blood 6.9 g/dL (6.4-8.2); Triglycerides 133 mg/dL (30-160); Very Low Density Lipoprot Chol 26 mg/dL (6-32)
== END | disposition home or self-care (01) ==
LOC: LAB 16:11 → LAB SHORT 16:11
PROVIDERS: Family Medicine
DX: I11.0 Hypertensive heart disease with heart failure (principal); I50.9 Heart failure, unspecified; E78.2 Mixed hyperlipidemia
CPT/HCPCS: 80053; 80061; 83880; 85025

== ENCOUNTER → 2022-04-27 | Outpatient (CLI) | payer OTHER ==
[2022-04-27 12:47] LABS: Source, Urine Foley catheter
[2022-04-27 18:46] LABS: Appearance, Urine Cloudy (Clear); Bilirubin, Urine Neg (Neg); Blood, Urine 5+ (Neg); Color, Urine Amber (P-Yellow); Glucose Qualitative, Urine Neg (Neg); Ketones, Urine 1+ (Neg); Leukocyte Esterase, Urine 3+ (Neg); Nitrite, Urine Neg (Neg); Protein, Urine 4+ (Neg); Urobilinogen, Urine 1+ (Normal)
[2022-04-27 18:59] LABS: Red Blood Cells, Urine TNTC /hpf (0-2); White Blood Cells, Urine TNTC /hpf (0-5)
[2022-04-27 19:00] LABS: Bacteria Many /hpf; Hyaline Casts 0-2 /lpf (0-2); RBC Cast 0-2 /lpf (0); Squamous Epithelial Cells Few /hpf (Few)
== END | disposition home or self-care (01) ==
LOC: LAB HH 12:45
PROVIDERS: Family Medicine
DX: N39.0 Urinary tract infection, site not specified (principal)
CPT/HCPCS: 81001; 87077; 87086; 87186

== ENCOUNTER 2022-05-09 15:19 | Emergency (ER) | payer OTHER ==
[~2022-05-09] VITALS: Ht 182.9 cm; Wt 117.9 kg
[2022-05-09 18:13] LABS: BASOPHILS ABSOLUTE AUTO 0.02 K/mm3 (0.00-0.23); BASOPHILS PERCENT AUTO 0 % (0-2); EOSINOPHILS ABSOLUTE AUTO 0.05 K/mm3 (0.00-0.68); EOSINOPHILS PERCENT AUTO 1 % (0-6); Hematocrit 37.8 % (37.0-53.0); Hemoglobin 11.6 g/dL (13.5-17.5); IMMATURE GRAN ABSOLUTE AUTO 0.39 K/mm3 (0.00-0.10); IMMATURE GRAN PERCENT AUTO 5 % (0-1); LYMPHOCYTES ABSOLUTE AUTO 0.84 K/mm3 (0.84-5.20); LYMPHOCYTES PERCENT AUTO 10 % (21-46); MONOCYTES ABSOLUTE AUTO 0.56 K/mm3 (0.16-1.47); MONOCYTES PERCENT AUTO 7 % (4-13); Mean Corpuscular HGB Conc 30.7 g/dL (31.5-36.5); Mean Corpuscular Volume 88 fL (80-100); Mean Platelet Volume 9.2 fL (9.1-12.4); NEUTROPHILS ABSOLUTE AUTO 6.78 K/mm3 (1.96-9.15); NEUTROPHILS PERCENT AUTO 79 % (41-73); Platelet Count 252 K/mm3 (150-400); RDW Coefficient Variation 15.8 % (11.7-14.2); RDW Standard Deviation 48.9 fL (35.1-46.3); White Blood Cell Count 8.64 K/mm3 (4.00-11.30)
[2022-05-09 18:32] LABS: Albumin, Blood 2.1 g/dL (3.4-5.0); Albumin/Globulin Ratio 0.4 (0.8-1.8); Bilirubin, Total 1.5 mg/dL (0.1-1.0); Bun/Creatinine Ratio 14.8 (12.0-20.0); Calcium, Blood 8.4 mg/dL (8.5-10.1); Creatinine, Blood 0.88 mg/dL (0.60-1.20); Globulin, Blood 5.7 g/dL (2.2-4.0); Potassium, Blood 4.9 mmol/L (3.5-5.5); Total Protein, Blood 7.8 g/dL (6.4-8.2)
== END 2022-05-09 21:53 | disposition home or self-care (01) ==
LOC: ER 15:19
PROVIDERS: Student in an Organized Health Care Education/Training Program
DX: N50.89 Other specified disorders of the male genital organs (principal); J44.9 Chronic obstructive pulmonary disease, unspecified; E78.5 Hyperlipidemia, unspecified; F32.A Depression, unspecified; G82.20 Paraplegia, unspecified; T14.8XXS Other injury of unspecified body region, sequela; Z87.891 Personal history of nicotine dependence; Z96.0 Presence of urogenital implants; Z98.890 Other specified postprocedural states; Z98.1 Arthrodesis status; Z79.899 Other long term (current) drug therapy
CPT/HCPCS: 36415; 80053; 83605; 85025; 99283-25; C1751

== ENCOUNTER → 2022-05-31 | Outpatient (CLI) | payer OTHER | END | disposition home or self-care (01) | LOC: LAB SHORT 12:15 | DX: R09.3 Abnormal sputum (principal) | CPT/HCPCS: 87070; 87205 ==

== ENCOUNTER 2022-08-21 03:38 | Inpatient (IN) | payer OTHER ==
[~2022-08-21] VITALS: Ht 182.9 cm; Wt 110.5 kg
[2022-08-21 04:01] LABS: PCO2 Arterial 63.2 mmHg (35-45); PO2 Arterial 75.1 mmHg (80-100)
[2022-08-21 04:02] LABS: pH Blood Arterial 7.25 (7.35-7.45)
[2022-08-21 05:06] LABS: BASOPHILS ABSOLUTE AUTO 0.03 K/mm3 (0.00-0.23); BASOPHILS PERCENT AUTO 0 % (0-2); EOSINOPHILS ABSOLUTE AUTO 0.02 K/mm3 (0.00-0.68); EOSINOPHILS PERCENT AUTO 0 % (0-6); Hematocrit 49.1 % (37.0-53.0); Hemoglobin 14.7 g/dL (13.5-17.5); IMMATURE GRAN ABSOLUTE AUTO 0.12 K/mm3 (0.00-0.10); IMMATURE GRAN PERCENT AUTO 1 % (0-1); LYMPHOCYTES ABSOLUTE AUTO 0.54 K/mm3 (0.84-5.20); LYMPHOCYTES PERCENT AUTO 6 % (21-46); MONOCYTES ABSOLUTE AUTO 0.79 K/mm3 (0.16-1.47); MONOCYTES PERCENT AUTO 8 % (4-13); Mean Corpuscular HGB 26.3 pg (26.0-34.0); Mean Corpuscular HGB Conc 29.9 g/dL (31.5-36.5); Mean Corpuscular Volume 88 fL (80-100); Mean Platelet Volume 9.7 fL (9.1-12.4); NEUTROPHILS ABSOLUTE AUTO 8.04 K/mm3 (1.96-9.15); NEUTROPHILS PERCENT AUTO 84 % (41-73); Platelet Count 162 K/mm3 (150-400); RDW Coefficient Variation 16.1 % (11.7-14.2); Red Blood Cell Count 5.59 M/mm3 (4.30-5.90); White Blood Cell Count 9.54 K/mm3 (4.00-11.30)
[2022-08-21 05:11] LABS: PCO2 Arterial 61.4 mmHg (35-45); PO2 Arterial 83.8 mmHg (80-100); pH Blood Arterial 7.29 (7.35-7.45)
[2022-08-21 05:22] LABS: Albumin, Blood 2.7 g/dL (3.4-5.0); Albumin/Globulin Ratio 0.4 (0.8-1.8); Bilirubin, Total 0.6 mg/dL (0.1-1.0); Bun/Creatinine Ratio 14.9 (12.0-20.0); Calcium, Blood 8.6 mg/dL (8.5-10.1); Creatinine, Blood 1.01 mg/dL (0.60-1.20); Potassium, Blood 4.6 mmol/L (3.5-5.5); Total Protein, Blood 8.7 g/dL (6.4-8.2)
[2022-08-21 08:40] LABS: Influenza A, PCR NEGATIVE (NEGATIVE); Influenza B, PCR NEGATIVE (NEGATIVE); Resp Syncytial Virus, PCR NEGATIVE (NEGATIVE); SARS-Cov-2 (COVID-19) PCR, MMC NEGATIVE (NEGATIVE)
[2022-08-21 11:43] LABS: PCO2 Arterial 55.7 mmHg (35-45); PO2 Arterial 110 mmHg (80-100); pH Blood Arterial 7.33 (7.35-7.45)
[2022-08-21] MEDS ORDERED: FLUTICASONE-SA1 EAC9 INH (13:59)
--- NOTE | 2022-08-21 17:30 | NUR ---
UPDATE ASSUMED CARE OF PT FROM ER NURSE. PT ALERT AND ORIENTED, ANSWERING QUESTIONS APPROPRIATELY. PT SHORT OF BREATH AND ONLY ABLE TO SPEAK IN SHORT SENTENCES. PT ON BIPAP 14/8 50% FIO2 WITH SATS >90%. PT DID TOLERATE SHORT BREAK ON 4L NC. LS COARSE THROUGHOUT. PT ABLE TO COUGH UP THICK HANCOCK SPUTUM WITH ASSISTANCE WITH SUCTION. BP STABLE. HR NSR IN THE 70'S. PT DENIES ANY PAIN. PT PROVIDED BED BATH UPON ADMIT. WOUND TO RIGHT GROIN LOOKS LIKE SKIN TEAR AND IS BLEEDING. WOUND CLEANED AND ABD PAD PLACED. COCCYX PRESSURE ULCER NOTED. PT STATES IT IS CHRONIC. WOUND CLEANED AND FOAM DRESSING PLACED. SCABS ON R GREAT TOE. PICTURES TAKEN OF ALL WOUNDS. LEGS FLOATED. PT HAS NO SENSATION FROM WAIST DOWN DUE TO PARARPLEGIA. PT ORIENTED TO ROOM AND CALL LIGHT. WILL CONTINUE TO MONITOR CLOSELY
[2022-08-21 18:56] LABS: Source, Urine Foley catheter
[2022-08-21 18:59] LABS: Appearance, Urine Cloudy (Clear); Bilirubin, Urine Neg (Neg); Blood, Urine 5+ (Neg); Color, Urine Yellow (P-Yellow); Glucose Qualitative, Urine Neg (Neg); Ketones, Urine 2+ (Neg); Leukocyte Esterase, Urine 3+ (Neg); Nitrite, Urine Pos (Neg); Protein, Urine 3+ (Neg); Specific Gravity, Urine 1.025 (1.003-1.022); Urobilinogen, Urine NORM (Normal)
[2022-08-21 19:19] LABS: White Blood Cells, Urine 50-100 /hpf (0-5)
[2022-08-21 19:20] LABS: Bacteria Many /hpf; Red Blood Cells, Urine 50-100 /hpf (0-2); Renal Epithelial Mod /hpf (0-Rare); Squamous Epithelial Cells Few /hpf (Few)
--- NOTE | 2022-08-21 23:06 | NUR ---
WHILE DOING ROUNDS I ENTERED PT ROOM. PT WAS ON NC AT 2L WITH SATURATION AT 88% AND DROPPING. I HAD PUT PT ON BIPAP ON MY PREVIOUS VISIT A FEW HOURS PRIOR. WHEN PT SAW ME HE REACHED OUT FOR THE BIPAP MASK, WHICH WAS HANGING SECURELY ON THE WATER HOOK ON BIPAP. PT IS DIFFICULT TO UNDERSTAND BUT HE WAS OBVIOUSLY WANTING THE MASK ON. ONCE MASK WAS IN PLACE AND ADJUSTED, PT ROLLED OVER AND WENT TO SLEEP. SATURATION JOSELINE TO 94% AND WAS STEADY. PT DID NOT APPEAR TO BE IN DISTRESS AND NO ISSUES WERE NOTED OTHER THAN PT BEING ANXIOUS TO PUT MASK BACK ON INITIALLY. SPOKE TO PT'S RN WHO STATED THAT HE TOOK PT OFF BIPAP BECAUSE PT WANTED TO EAT SOMETHING. STATED, PT WAS NOT IN DISTRESS AND THERE WERE NO ISSUES NOTED.
[2022-08-22 01:18] LABS: PCO2 Arterial 62.5 mmHg (35-45); PO2 Arterial 137 mmHg (80-100); pH Blood Arterial 7.29 (7.35-7.45)
--- NOTE | 2022-08-22 02:15 | NUR ---
RAPID RESPONSE PT'S O2 SATS RAPIDLY DROPPED TO 82% JUST AFTER 0100 WHILE PT WAS SLEEPING W HIS BIPAP ON. PT'S SPO2 SATS DID RESPOND W 100% FIO2 AND THE PT WAS UNRESPONSIVE DESPITE BEING STERNAL RUBBED AND HAVING HIS NAM CALLED LOUDLY. PT BEGAN TO AROUSE AND HIS EYES THEN ROLLED BACK AND HE WAS AGAIN UNRESPONSIVE. THIRD STEEL POURER CALLED THIS RN CONTINUED TO AROUSE THE PT. PT SLOWLY BEGAN TO WAKE UP AND HIS SPO2 BEGAN TO RISE >90%. THIRD STEEL POURER TEAM ARRIVED AND RT WAS ABLE TO NT SUCTING THICK SECRETIONS FROM THE PT'S AIRWAY. PT CURRENTLY DENYING ANY PAIN, NAUSEA OR SOB. BIPAP SETTING BEING MANAGED BY RT. ABG DRAWN W PLAN TO REPEAT AT 0200. CHEST XRAY AND SPUTM CULTURES ORDERED. PROVIDER ASSESSED THE PT AT BEDSIDE PRIOR TO PLACING ORDERS. PT'S VSS AND HE IS SLEEPING COMFORTABLY IN BED W HIS CALL LIGHT WITHIN REACH.
[2022-08-22 03:24] LABS: PCO2 Arterial 59.5 mmHg (35-45); PO2 Arterial 105 mmHg (80-100); pH Blood Arterial 7.32 (7.35-7.45)
[2022-08-22 04:40] LABS: Hematocrit 45.3 % (37.0-53.0); Hemoglobin 13.8 g/dL (13.5-17.5); Mean Corpuscular HGB 26.5 pg (26.0-34.0); Mean Corpuscular HGB Conc 30.5 g/dL (31.5-36.5); Mean Corpuscular Volume 87 fL (80-100); Mean Platelet Volume 9.7 fL (9.1-12.4); Platelet Count 172 K/mm3 (150-400); RDW Coefficient Variation 15.8 % (11.7-14.2); RDW Standard Deviation 50.5 fL (35.1-46.3)
[2022-08-22 05:02] LABS: Bun/Creatinine Ratio 23.3 (12.0-20.0); Calcium, Blood 8.6 mg/dL (8.5-10.1); Creatinine, Blood 0.82 mg/dL (0.60-1.20); Potassium, Blood 4.2 mmol/L (3.5-5.5)
--- NOTE | 2022-08-22 06:10 | NUR ---
PLUG SORTER SUMMARY PT IS ALERT AND COMMUNICATING W STAFF APPROPRIATELY AT TIMES WHILE SOMETIMES BEING SLIGHTLY CONFUSED AND AGITATED. PT WILL RIP OFF HIS BIPAP AND ACT AGGRESSIVE TOWARDS STAFF BUT THEN BE VERY APOLOGETIC A SHORT TIME LATER. PT HAD ONE EPISODE THIS SHIFT RESULTING IN A GRAPHICS INTERN, SEE PREVIOUS NOTE. PT MAINTAINING O2 SATS ON BIPAP THIS SHIFT W 50% FIO2 GIVEN A FEW BSHORT BREAKS OFF OF MASK W 4L NC. PROVIDER CONTACTED THIS AM AFTER THE PT RIPPED OFF HIS BIPAP AND BEGAN YELLING AT STAFF. PO ATIVAN ORDERED BY THE PROVIDER W TO HELP W BIPAP COMPLIANCE. BP WNL AND STABLE. PT AFEBRILE ALL SHIFT. RT AT BEDSIDE THIS AM USING DEEP SUCTIONING AND REMOVING VERY LARGE AMOUNTS OF THIN SECRETIONS. PT CURRENTLY RESTING IN BED AGREEING TO PUT HIS BIPAP MASK BACK ON. WILL REPORT TO ONCOMING RN.
[2022-08-22] MEDS ORDERED: DONEPEZIL HCL10 MG PO (10:26)
[2022-08-22] MEDS ORDERED: Seroquel Xr50 MG PO (10:32)
[2022-08-22] MEDS ORDERED: DOCU100 PO (10:37)
[2022-08-22] MEDS ORDERED: MELATONIN5 M1 PO (10:38)
[2022-08-22] MEDS ORDERED: ACIDOPHILUS1 EAC3 PO (10:38)
[2022-08-22] MEDS ORDERED: CRANBERRY CONC1 EAC1 PO (10:39)
--- NOTE | 2022-08-22 12:50 | NUR ---
Received call from Primary RN Ricarda reporting Pt's family at bedside and may benefit from code status discussion. Met with Pt's mother Helene and her granddaughter outside of Pt's room per their request. Granddaughter reports being Pt's primary caregiver. Engaged in therapeutic conversation regarding Pt's code status wishes. Pt currently is Full Code and has POLST on file for DNR. Extensive conversation by PC ISAI Bryan in past visit. Reviewed POLST on file with Pt's mother and granddaughter. Family report Pt's wishes are DNR. Offered therapeutic listening and answered questions. Family expresses hopfefullness that Pt will recover. No other concerns reported at this time. Spoke with Dr Lockwood and placed DNR order in [facility] per V/O from Dr Lockwood. Palliative Care will remain available.
--- NOTE | 2022-08-22 18:40 | NUR ---
DAY SHIFT SUMMARY AT START OF SHIFT PT DESATTING TO 80S ON BIPAP, RT CALLED TO BEDSIDE FOR DEEP NT SUCTION. PT WITH POOR COUGH AND CLEARING OF SECRETIONS. Fi02 INCREASED TO 50%, PRESSURES INCREASED PER RT. PT ORIENTED X2-3, MOTHER DACIA LISTED POA. SPOKE W/DR. OROZCO AT BEDSIDE REGARDING INCREASED O2 NEEDS AND NT SUCTIONING AND PLAN OF CARE. NOTED HOME MEDS NOT ORDERED. OK PER DR. OROZCO TO ORDER SEROQUEL AND ZOLOFT. ORDER FOR PALLIATIVE CARE CONSULT RECEIVED WELL. NOTIFIED PALLIATIVE CARE. MOTHER DACIA AND CAREGIVER CORINNE ARRIVED SHORTLY AFTER AND NOTIFIED OF UPDATES AND PLAN FOR PALLIATIVE TO SEE PT. DACIA PROVIDED MEDICATION LIST AND MED LIST UPDATED TO ALSO INCLUDE MEDS PROVIDED. SPOKE WITH DR. OROZCO THIS EVENING AND OK TO ADD ARICEPT AND MELATONIN. PT HADN'T BEEN REQUIRING NT SUCTIONING THE REST OF THE DAY AND ABLE TO TITRATE FI02 TO 40%. PT REQUESTING FOOD AND WATER. PT TOLERATING SHORT BREAKS FROM BIPAP AND TRIALED ON 8L NC. PT ABLE TO TAKE SIPS OF WATER BUT NOT TOLERATING CANNULA WITH SATS DIPPING INTO 70S. BIPAP PUT BACK ON AND PT BACK ON 50% FI02 THIS EVENING. ANGRY ABOUT NOT GETTING FOOD/DRINK AND THIS RN EXPLAINED REASONING. PT REMAINS FRUSTRATED AND ASKING FREQUENTLY FOR FOOD/DRINK. ATTEMPTING POWERGLIDE PLACEMENT AFTER RAC IV BLEW THIS EVENING. WILL PASS ON TO NOC RN
[2022-08-23 04:55] LABS: Hematocrit 46.3 % (37.0-53.0); Mean Corpuscular HGB 26.4 pg (26.0-34.0); Mean Corpuscular HGB Conc 30.2 g/dL (31.5-36.5); Mean Corpuscular Volume 87 fL (80-100); Mean Platelet Volume 9.7 fL (9.1-12.4); Platelet Count 204 K/mm3 (150-400); RDW Coefficient Variation 15.7 % (11.7-14.2); Red Blood Cell Count 5.31 M/mm3 (4.30-5.90); White Blood Cell Count 9.76 K/mm3 (4.00-11.30)
[2022-08-23 05:17] LABS: Bun/Creatinine Ratio 31.9 (12.0-20.0); Calcium, Blood 8.7 mg/dL (8.5-10.1); Creatinine, Blood 0.88 mg/dL (0.60-1.20); Potassium, Blood 4.2 mmol/L (3.5-5.5)
--- NOTE | 2022-08-23 05:20 | NUR ---
SUPERINTENDENT STEVEDORING SUMMARY PT ALERT AND COMMUNICATING APPROPRIATELY W STAFF THOUGH HIS MENATION AGAIN WAS LABILE THIS SHIFT BECOMING VERY IRRITABLE AT TIMES ABOUT BEING NPO AND ON BIPAP. PROVIDER CONTACTED AT START OF SHIFT DUE TO CONCERNS ABOUT THE PT INABILITY TO CLEAR SECRETIONS SO NPO ORDER OBTAINED WELL A ST EVAL PLACED. PT VERY UPSET BY THIS RIPPING OFF HIS BIPAP AND BECOMING AGGRESSIVE W THIS RN. THIS RN EDUCATING THE PT ON WHY HE WAS NPO AND HOW HIS POSSIBLE ASPIRATION MAY BE MAKING HIM SICKER. THE PT WAS NOT RECEPTIVE BUT AGRRED TO WHERE THE MASK IF HE RECIEVED MEDICATION TO HELP W FEELING CLAUSTORPHOBIC W THE MASK. PROVIDER CONTACTED AND PO ATIVAN WAS SWITCHED TO IV ROUTE. PT ABLE TO WEAR THE MASK FOR THE REST OF THE SHIFT ONLYY REMOVING IT TO HAVE NT SUCTIONING PERFORMED BY RT. PTOXYGENATING MUCH BETTER THIS AM W SLOWER RR RATE. BP WNL AND STABLE. TELE SHOWING SB 45-60 THIS SHIFT. PT AFEBRILE. WILL REPORT TO ONCOMING RN.
--- NOTE | 2022-08-23 10:39 | NUR ---
Pt resting in bed wearing BIPAP. Pt closes his eyes often throughout visit. Family at bedside. Provided update and reviewed plan of care. Gentle discussion regarding potential decisions regarding unsafe swallow. Started conversation regarding considering comfort care and hospice. Offered therapeutic listening and answered questions. Pt's mother Helene reports feeling overwhelmed. Caregiver reports Pt's HH nurse has expressed concerns for about 6 months concerning Pt's swallow. Ended visit to allow family to process information. Spoke with ST Julian prior to visiting Pt and discussed case. Plan for modified barrium swallow staudy tomorrow pending Pt's respiratory status. Spoke with Pt's primary RN Jamila and RN Caremanager. Discussed case and concerns. Palliative Care will remain available.
--- NOTE | 2022-08-23 18:16 | NUR ---
DAY SHIFT SUMMARY PT ORIENTED X2-3, MORE ALERT LATER IN THE DAY. SOME BRADYCARDIA DOWN TO 38 BPM @ 1250 TODAY, NONSUSTAINED. NOTIFIED DR. OROZCO IN ROUNDS OF BRADYCARDIA AND BEDSIDE SWALLOW EVAL WITH PLAN TO DO BARIUM SWALLOW PER [employer]. FAMILY - MOTHER DACIA AND CAREGIVER CORINNE AT BEDSIDE AND SPOKE WITH CARE MANAGEMENT AND PALLIATIVE CARE ABOUT PLAN AND POTENTIAL HOSPICE. DACIA (POA) AT THIS TIME STATES NOT READY TO MAKE THAT DECISION. DAY WENT ON PT HAVING MORE SECRETIONS, REQUIRING MORE NT SUCTION AND INCREASING Fi02 TO 100% TO HOLD ABOVE 90 PERCENT OXYGEN SATURATIONS. PT BECOMING INCREASINGLY FRUSTRATED AND PULLING OFF BIPAP ASKING FOR FOOD/DRINK. EDUCATION GIVEN ON IMPORTANCE OF NPO STATUS. DR. OROZCO CALLED THIS EVENING DUE TO DESATURATIONS AND REQUIRING MORE O2 EVEN WHEN KEEPING MASK ON. PULM CONSULTED AND DR. OROZCO TO SPEAK WITH FAMILY REGARDING PLAN OF CARE. PT ASKING TO SPEAK TO MOM WELL. PT BROKE BIPAP MASK AND PLACED ON HFNC WHILE AWAITING PULM. PT SPOKE WITH MOM AND THIS RN ABOUT PLAN OF CARE AND MEDICATION TO MAKE PT MORE COMFORTABLE WHEN ON BIPAP FAMILY WAS NOT READY TO MAKE COMFORT CARE DECISION. DR. ÁLVAREZ CAME TO BEDSIDE THIS EVENING WITH PLANS TO PLACE PT ON AIRVO AND BIPAP WHEN SLEEPING. IV LASIX ORDERED. NO REPEAT CBGS AT THIS TIME AND PT BECAME IMMEDIATELY LESS AGITATED AFTER BIPAP REMOVED. WILL PASS ON TO DAY RN.
[2022-08-24 03:57] LABS: Hematocrit 48.9 % (37.0-53.0); Hemoglobin 14.9 g/dL (13.5-17.5); Mean Corpuscular HGB 26.5 pg (26.0-34.0); Mean Corpuscular HGB Conc 30.5 g/dL (31.5-36.5); Mean Corpuscular Volume 87 fL (80-100); Mean Platelet Volume 9.8 fL (9.1-12.4); Platelet Count 212 K/mm3 (150-400); RDW Coefficient Variation 15.9 % (11.7-14.2); RDW Standard Deviation 51.1 fL (35.1-46.3); Red Blood Cell Count 5.63 M/mm3 (4.30-5.90)
[2022-08-24 04:14] LABS: Bun/Creatinine Ratio 35.3 (12.0-20.0); Calcium, Blood 8.9 mg/dL (8.5-10.1); Creatinine, Blood 0.94 mg/dL (0.60-1.20); Potassium, Blood 4.5 mmol/L (3.5-5.5)
--- NOTE | 2022-08-24 05:07 | NUR ---
SHIFT SUMMARY PT IS A/Ox2 AND IS FOR THE MOST PART COOPERATIVE WITH CARE PROVIDED BY STAFF. CONFUSED AT TIMES AND CAN BE IRRATIBLE WITH STAFF. PT MAINTAINS SPO2 >94% ON AIRVO WITH 50L @60% FiO2. LS REMAIN COARSE T/O WELL RR RANGING IN THE LOW 20'S. PT BARELY SLEPT LAST NIGHT AND WOULD NOT TOLERATE THE BIPAP WITHOUT THE USE OF ANTIVAN TO HELP EASE HIS ANXIETY. CARDIAC ALVARADO PT'S HR REMAINED IN THE 60-70'S FOR MOST OF THE SHIFT, BUT HE DID VIOLETA DOWN INTO THE 40'S, BUT PT DID NOT COMPLAIN OF ANY DIZZYNESS, LIGHTHEADNESS, CP OR CHEST PRESSURE. BP HAS REMAINED STABLE. PT RESPONDED TO LASIX ADMINISTRATION FOR HE HAD LOTS ABOUT OF URINE OUTPUT T/O THE NIGHT. SMITH CATH PATENT AND DRAINING CLEAR/YELLOW URINE TO GRAVITY. PT REPOSTIONED FREQUENTLY TO PREVENT ANY SKIN BREAKDOWN. VSS, NADN T/O THE SHIFT
--- NOTE | 2022-08-24 16:07 | NUR ---
Case conferenced with Dr ventura: current status and plans for EOL care, starting with hospice at pt's home on d/c once arrangements are in place per Care management. That is anticipated for tomorrow per my conversation with CM earlier today. Pt has decided against feeding tube/artificial nutrition and remains NPO at this time.
--- NOTE | 2022-08-24 18:46 | NUR ---
Spoke to pt's mom Helene this evening. During the call, she put her youngest son and the of another of her sons on the phone, states she "can't make decisions alone". I clarified that pt will be going home with hospice tomorrow, she states that is not the case. She states she will need time to figure out caregivers, and is unsure what or when that will be a possibility. In the meantime, the pt has begun to lose his patience and is insisting he be given something to eat and/or drink. He is attempting to pull out his merlos catheter, IV and even attempts to pull himself out of bed. The patient has even gone so far as to beg, "Please, food, please". Pt's mom decided during this call she is in fact ok with comfort care, and does verbalize understanding, along with pt's brother and sister in law that the patient could potentially pass away while in the hospital due to hypoxia if he continues to refuse to leave his oxygen in place, or if he does decide to eat a regular diet. After speaking with Dr. Lockwood, we settled on clear liquids for tonight, and will re-evaluate in the morning.
--- NOTE | 2022-08-24 19:57 | NUR ---
Pt's 2 brothers came in for a visit, wanted to be sure we began comfort care tonight, as they had discussed the situation "as a family", and they all agree with pt's mom and POA that it isn't right for the pt to suffer. They verbalize understanding that Comfort Care means no more antibiotics, letting pt eat and drink as he chooses, and medicate as needed for comfort. Pt's seroquel was restarted as well. Dr. Aguilar gave verbal orders for comfort care, and bedside RN aware. Pt given ice chips to start, tolerating well.
--- NOTE | 2022-08-24 20:17 | NUR ---
DAY SHIFT SUMMARY IN AM PT AGITATED, PULLING OFF HFNC AND REQUESTING FOOD/DRINK. YELLING OUT AT THIS RN, PULLING ON SMITH AND PULLING OFF TELEMETRY. PRN MEDS GIVEN FOR AGITATION WITH LITTLE RELIEF. FAMILY TO BEDSIDE AND ABLE TO PROVIDE SUPPORT AND REDIRECTION AND PT CALMED. EMPLOYMENT CLERK TO BEDSIDE TO DISCUSS PLAN OF CARE WITH MOTHER DACIA, AND DAUGHTER IN LAW. SEE EMPLOYMENT CLERK NOTE FOR DETAILS. PLAN FOR HOSPICE DISCHARGE WITH [facility]. WINDOW GLASS INSTALLER VISITING WITH FAMILY AT SAME TIME AND FAMILY WANTS TO COMPLETE BARIUM SWALLOW STUDY. PT TITRATED DOWN TO 4L NC AND ABLE TO COMPLETE BARIUM SWALLOW EVAL. UPON RETURN STARTS TO PULL OF TELMETRY AND REFUSE CANNULA. IM ZYPREXA GIVEN. PT CONTINUES TO REFUSE TELEMETRY NOTIFIED DR. OROZCO OF CONTINUED AGITATION REGARDING TELEMETRY AND INTERVENTION AND FAMILY'S WISHES TO TAKE PT HOME. PALLIATIVE CARE NOTIFIED OF NEED FOR REEVAL AND APURVA, PALLIATIVE CARE RN TO BEDSIDE. PT TRANSITIONED TO COMFORT MEASURES ONLY THIS EVENING. SEE PALLIATIVE CARE NOTE.
--- NOTE | 2022-08-24 22:30 | NUR ---
UPDATE AFTER SPEAKING WITH THE SLOT FLOOR SUPERVISOR AND THE DAYSHIFT NURSE, THE PT IS NO COMFORT CARE WITH PLANS TO DC ON HOSPICE. PT'S HOME SEROQUEL WELL MEDS RELATING TO COMFORT CARE WERE STARTED THIS PM. FAMILY EDUCATED ABOUT THE USE OF THESE MEDICATIONS AND THE GOAL TO KEEP THE PT COMFORTABLE. FAMILY IS NO LONGER IN THE ROOM, BUT STATED THEY WOULD BE BACK IN THE MORNING. PT HAS BEEN MEDICATED ORDERED PER EMAR TO MANAGE FEELINGS OF PAIN, AIRHUNGER, AND EXCESS SECRETIONS.
--- NOTE | 2022-08-25 05:19 | NUR ---
SHIFT SUMMARY PT WAS PLACED ON COMFORT CARE DAYSHIFT 08/24/22. MENTATION CONTINIOUS TO WAX AND WANE OVER THE COURSE OF THE SHIFT. WITH PT CLAIMING TO "TURN OFF THE RADIO" AND "WHEN DO I GET OF THIS SHIP?". PT'S PAIN, AIRHUNGER, AND AGITATION OF BEEN MANAGED ORDERED PER EMAR. PT SLEPT THROUGH MOST OF THE NIGHT, BUT HAS SLOWLY STARTED TO AWAKE THIS AM. PT IS NOW REFUSING SUPPLEMENTAL O2 CAUSING HIS SPO2 TO DROP INTO THE 80'S. DOES NOT COMPLAIN OF AIRHUNGER AT THIS TIME, BUT PT SOUNDS VERY GURGLY WITH A WEAK COUGH. SMITH STILL IN PLACE PATENT, DRAINING RUMA COLORED URINE TO GRAVITY. COLD MEAT CHEFISAI LOCKWOOD AWARE OF PT'S CONDITION. WILL CONTINUE TO MANAGE PT'S SYMPTOMS PER EMAR WELL CONTINUE TO REPOSITION HIM TO MAKE HIM CONFORTABLE POSSIBLE. NADJacob T/O THE SHIFT
--- NOTE | 2022-08-25 10:22 | NUR ---
LATE ENTRY/08 RECEIVED REPORT FROM MADI ALEX. 4867: PT TRANSFERRED VIA BED FROM PCU. MADE COMFORTABLE, ORIENTED TO ROOM AND UNIT ROUTINE. FAMILY WITH PT. PT IS COMFORT CARE, PLANS ARE TO DC PT TODAY ON HOSPICE.
[2022-08-25] MEDS ORDERED: ATROPINE SULFATE2 M1 SL (12:18)
[2022-08-25] MEDS ORDERED: Ativan1 MG PO (12:19)
[2022-08-25] MEDS ORDERED: MORP20L SL (12:19)
[2022-08-25] MEDS ORDERED: TRANSDERM-SCOP1 EA10 TD (12:20)
--- NOTE | 2022-08-25 13:45 | NUR ---
DC HOME WITH HOSPICE PT HOME WITH HOSPICE ARRANGED. [facility]
--- NOTE | 2022-08-25 13:47 | NUR ---
POWER GLIDE 1325: POWER GLIDE DC'D WITH CATH TIP INTACT, NO REDNESS, SWELLING OR BLEEDING NOTED.
== END 2022-08-25 13:32 | DRG 871 ==
LOC: ER 03:38 → ERHOLD 06:30 → PCU 06:30 → MEDS 08-25 09:42
PROVIDERS: Internal Medicine; Student in an Organized Health Care Education/Training Program; ADMIT Family Medicine
PROC: 3E03329 Introduction of Other Anti-infective into Peripheral Vein, Percutaneous Approach (ICD-10-PCS; principal; 2022-08-21)
PROC: 5A09457 Assistance with Respiratory Ventilation, 24-96 Consecutive Hours, Continuous Positive Airway Pressure (ICD-10-PCS; 2022-08-21)
PROC: 5A0935A Assistance with Respiratory Ventilation, Less than 24 Consecutive Hours, High Flow/Velocity Cannula (ICD-10-PCS; 2022-08-24)
DX: A41.52 Sepsis due to Pseudomonas (principal); G82.50 Quadriplegia, unspecified; G92.8 Other toxic encephalopathy; J69.0 Pneumonitis due to inhalation of food and vomit; J18.9 Pneumonia, unspecified organism; J96.21 Acute and chronic respiratory failure with hypoxia; J96.22 Acute and chronic respiratory failure with hypercapnia; T83.511A Infection and inflammatory reaction due to indwelling urethral catheter, initial encounter; N39.0 Urinary tract infection, site not specified; J44.0 Chronic obstructive pulmonary disease with (acute) lower respiratory infection; J90 Pleural effusion, not elsewhere classified; J44.1 Chronic obstructive pulmonary disease with (acute) exacerbation; R65.20 Severe sepsis without septic shock; Z66 Do not resuscitate; Z51.5 Encounter for palliative care; R13.10 Dysphagia, unspecified; E78.5 Hyperlipidemia, unspecified; F32.A Depression, unspecified; N31.9 Neuromuscular dysfunction of bladder, unspecified; E66.9 Obesity, unspecified; D63.8 Anemia in other chronic diseases classified elsewhere; D69.6 Thrombocytopenia, unspecified; Z98.1 Arthrodesis status; Z20.822 Contact with and (suspected) exposure to COVID-19; Z87.891 Personal history of nicotine dependence; Z68.33 Body mass index [BMI] 33.0-33.9, adult; Z79.51 Long term (current) use of inhaled steroids; Z79.899 Other long term (current) drug therapy; S24.102S Unspecified injury at T2-T6 level of thoracic spinal cord, sequela; Z98.890 Other specified postprocedural states; Y84.6 Urinary catheterization as the cause of abnormal reaction of the patient, or of later complication, without mention of misadventure at the time of the procedure
CPT/HCPCS: 0241U; 31720; 36415; 36600; 51703; 71045; 74230; 80048; 80053; 81001; 82803; 83605; 83880; 84145; 85025; 85027; 87040; 87070; 87077; 87086; 87186; 87205; 92526; 92610; 92611; 93005; 93010; 94640; 94660; 94664; 94667; 94668; 94760; 94762; 96365; 96366; 96375; 99285-25; A9270; J0295; J0456; J0696; J1650; J1940; J2060; J2270; J2543; J2930; J7050